=== PATIENT | male | born 1950 | race Caucasian/White ===

== ENCOUNTER 2024-07-01 13:12 | Inpatient (IN) ==
[2024-07-01] MEDS: SODIUM CHLORIDE 0.9% 1,000 ML IV ONE ×2 (13:44→14:28)
--- NOTE | 2024-07-01 14:08 | XRay Report ---
XR chest 1V portable CLINICAL HISTORY: weakness COMPARISON STUDY: Chest radiograph June 22, 2024. FINDINGS: Lung volumes are normal. Lungs are clear. There is no pneumothorax or pleural effusion. Car diac size is normal. Mediastinal contours are normal. There is no evidence for pulmonary edema. IMPRESSION: No acute cardiopulmonary findings. ACT 112: Negative or not required by law. Electronically signed by: Donald Choi M.D. 07/01/2024 2:07 PM
[2024-07-01 14:10] LABS: Hematocrit (blood only) 19.8 % (42.0-52.0); Hemoglobin 7.1 g/dl (14.0-18.0); Mean Corpuscular Hemoglobin 42.3 pg (25.0-34.0); Mean Corpuscular Hgb Conc 35.9 g/dL (32.0-36.0); Mean Corpuscular Volume 117.9 fL (80.0-100.0); Mean Platelet Volume 11.9 fL (9.4-12.4); Nucleated RBC # (auto) 0.02 K/uL (0.00-0.12); Nucleated RBC % (auto) 0.5 %; Platelet Count 106 K/uL (130-400); RDW Coefficient of Variation 14.9 % (11.5-14.5); RDW Standard Deviation 59.1 fL (36.4-46.3); Red Blood Count 1.68 M/uL (4.70-6.10); White Blood Count 3.69 K/ul (4.8-10.8)
[2024-07-01 14:19] LABS: Albumin Globulin Ratio 2.2 (0.9-2); Albumin Level 4.8 gm/dl (3.4-5.0); BUN Creatinine Ratio 31.3 (10-20); Bilirubin,Total 3.8 mg/dl (0.2-1.0); Calcium 9.9 mg/dl (8.6-10.3); Creatinine Clr Calc Pharmacy 54.5 ml/min; Globulin 2.2 gm/dl (2.5-4.0); Magnesium 2.2 mg/dl (1.7-2.4); Potassium 3.6 mmol/L (3.5-5.1)
[2024-07-01 14:25] LABS: Troponin I High Sensitivity 6.3 pg/ml (0-20)
[2024-07-01 14:28] LABS: Procalcitonin 0.09 ng/ml (0-0.5)
[2024-07-01] MEDS: SODIUM CHLORIDE 0.9% 500 ML IV ONE (14:28)
[2024-07-01 14:36] LABS: Hypersegmented Neutrophils 1+; Immature Granulocytes # (auto) 0.02 K/uL (0.01-0.20); Immature Granulocytes % (auto) 0.5 %; Lymphocytes # (auto) 1.18 K/uL (1.20-3.40); Macrocytosis Present; Monocytes # (auto) 0.12 K/uL (0.11-0.59); Monocytes % (auto) 3.3 %; Neutrophils # (auto) 2.37 K/uL (1.40-6.50); Neutrophils % (auto) 64.2 %; Ovalocytes 1+; Polychromasia 1+; Tear Drop Cells 1+
[2024-07-01] MEDS ORDERED: CEFEPIME 2,000 MG/20 ML VIAL IV STA (14:36)
[2024-07-01] MEDS ORDERED: SODIUM CHLORIDE 0.9% 250 ML IV PRN (14:36)
[2024-07-01 14:53] LABS: Adenovirus PCR Not Detected (NotDetected); Bordetella parapertussis PCR Not Detected (NotDetected); Bordetella pertussis PCR Not Detected (NotDetected); Chlamydia pneumoniae PCR Not Detected (NotDetected); Coronavirus 229E PCR Not Detected (NotDetected); Coronavirus CoV-2 (COVID19)PCR Not Detected (NotDetected); Coronavirus HKU1 PCR Not Detected (NotDetected); Coronavirus NL63 PCR Not Detected (NotDetected); Coronavirus OC43PCR Not Detected (NotDetected); Human Metapneumovirus PCR Not Detected (NotDetected); Influenza A PCR Not Detected (NotDetected); Influenza B PCR Not Detected (NotDetected); Mycoplasma pneumoniae PCR Not Detected (NotDetected); Parainfluenza Virus 1 PCR Not Detected (NotDetected); Parainfluenza Virus 2 PCR Not Detected (NotDetected); Parainfluenza Virus 3 PCR Not Detected (NotDetected); Parainfluenza Virus 4 PCR Not Detected (NotDetected); Respiratory Syncytial VirusPCR Not Detected (NotDetected); Rhinovirus/Enterovirus PCR Not Detected (NotDetected)
[2024-07-01 14:53] LABS: Lyme Screen Rflx Confirmation Negative (Negative)
--- NOTE | 2024-07-01 18:23 | Emergency Department Note ---
History of Present Illness General Chief Complaint: Abnormal Labs/Diagnostic Testing Stated Complaint: ABN LABS/DOC REF Time Seen by Provider: 07/01/24 13:25 History of Present Illness Provider Complaint: + abnormal lab Returns today for: + called because of abnormal lab/test Description of abnormal result: Low hemoglobin Context: + called for abnormal lab result Associated symptoms: no fever, no chills, no chest pain, no shortness of breath, no rash or no nausea HPI narrative: Patient reports feeling very weak. He reports no melena or hematochezia. No nausea or vomiting. No hematemesis coffee-ground emesis or bilious vomiting. Home Medications Medication Instructions Recorded Confirmed Type finasteride 5 mg tablet 5 mg PO DAILY 07/01/24 07/01/24 History lisinopril 10 1 tab PO DAILY 07/01/24 07/01/24 History mg-hydrochlorothiazide 12.5 mg tablet simvastatin 20 mg tablet 20 mg PO DAILY 07/01/24 07/01/24 History Allergies Allergy/AdvReac Type Severity Reaction Status Date / Time No Known Allergies Unverified 07/01/24 15:03 Past Med/Surg History Problem List (Updated 07/01/24 @ 18:33 by Harpreet Trevizo MD) Sepsis (Acute) Pancytopenia (Acute) Anemia (Acute) Medical History No pertinent family history HLD (hyperlipidemia) HTN (hypertension) Weakness Surgical History No pertinent past surgical history Social History Smoking Status: Never smoker Feels Safe at Home: Yes Physical Exam 2 Vital Signs: Vital Signs - 24 hr 07/01/24 13:18 07/01/24 13:30 07/01/24 13:45 Temperature Temperature Source Pulse Rate 137 H 84 84 Pulse Rate [Apical ] Pulse Rate from Sp O2 Sensor Respiratory Rate 18 26 H Respiratory Effort / Characteristics Non-Labored Sponta neous Respiratory Depth Normal Respiratory Patter n Blood Pressure 71/46 L Blood Pressure [Le ft Arm] Blood Pressure Kitty n 54 Blood Pressure Kitty n [Left Arm] Pulse Oximetry 97 Oxygen Delivery Me thod Room Air Sepsis Recent Feve r Within 48 Hours No Sepsis New/Unexpla ined Change in Men claudia Status No Sepsis Action Take n by Nursing No Action Required 07/01/24 13:45 07/01/24 13:51 07/01/24 13:52 Temperature Temperature Source Pulse Rate 92 H Pulse Rate [Apical ] 85 Pulse Rate from Sp O2 Sensor Respiratory Rate 19 20 Respiratory Effort / Characteristics Non-Labored Sponta neous Respiratory Depth Normal Respiratory Patter n Regular Blood Pressure 86/57 L Blood Pressure [Le ft Arm] 86/57 L Blood Pressure Kitty n 68 Blood Pressure Kitty n [Left Arm] 66 Pulse Oximetry 96 Oxygen Delivery Me thod Room Air Room Air Sepsis Recent Feve r Within 48 Hours Sepsis New/Unexpla ined Change in Men claudia Status Sepsis Action Take n by Nursing 07/01/24 14:06 07/01/24 14:15 07/01/24 14:15 Temperature Temperature Source Pulse Rate 83 86 Pulse Rate [Apical ] Pulse Rate from Sp O2 Sensor Respiratory Rate 21 18 Respiratory Effort / Characteristics Respiratory Depth Respiratory Patter n Blood Pressure 93/60 L Blood Pressure [Le ft Arm] Blood Pressure Kitty n 71 Blood Pressure Kitty n [Left Arm] Pulse Oximetry 96 Oxygen Delivery Me thod Sepsis Recent Feve r Within 48 Hours Sepsis New/Unexpla ined Change in Men claudia Status Sepsis Action Take n by Nursing 07/01/24 14:15 07/01/24 14:30 07/01/24 14:30 Temperature Temperature Source Pulse Rate 79 Pulse Rate [Apical ] Pulse Rate from Sp O2 Sensor Respiratory Rate 20 Respiratory Effort / Characteristics Respiratory Depth Respiratory Patter n Blood Pressure 94/61 L Blood Pressure [Le ft Arm] Blood Pressure Kitty n 67 Blood Pressure Kitty n [Left Arm] Pulse Oximetry 99 99 Oxygen Delivery Me thod Sepsis Recent Feve r Within 48 Hours Sepsis New/Unexpla ined Change in Men claudia Status Sepsis Action Take n by Nursing 07/01/24 15:00 07/01/24 15:00 07/01/24 15:09 Temperature Temperature Source Pulse Rate 75 76 Pulse Rate [Apical ] Pulse Rate from Sp O2 Sensor 78 76 Respiratory Rate 20 18 Respiratory Effort / Characteristics Respiratory Depth Respiratory Patter n Blood Pressure 118/68 Blood Pressure [Le ft Arm] Blood Pressure Kitty n 90 Blood Pressure Kitty n [Left Arm] Pulse Oximetry 100 100 Oxygen Delivery Me thod Sepsis Recent Feve r Within 48 Hours Sepsis New/Unexpla ined Change in Men claudia Status Sepsis Action Take n by Nursing 07/01/24 15:13 07/01/24 15:15 07/01/24 15:18 Temperature Temperature Source Pulse Rate 81 Pulse Rate [Apical ] 79 Pulse Rate from Sp O2 Sensor Respiratory Rate 19 16 Respiratory Effort / Characteristics Non-Labored Sponta neous Respiratory Depth Normal Respiratory Patter n Regular Blood Pressure 106/66 Blood Pressure [Le ft Arm] 106/66 Blood Pressure Kitty n 81 Blood Pressure Kitty n [Left Arm] 79 Pulse Oximetry 98 Oxygen Delivery Me thod Room Air Sepsis Recent Feve r Within 48 Hours Sepsis New/Unexpla ined Change in Men claudia Status Sepsis Action Take n by Nursing 07/01/24 15:30 07/01/24 15:30 07/01/24 15:42 Temperature Temperature Source Pulse Rate 78 77 Pulse Rate [Apical ] Pulse Rate from Sp O2 Sensor 75 76 Respiratory Rate 22 16 Respiratory Effort / Characteristics Respiratory Depth Respiratory Patter n Blood Pressure 114/73 Blood Pressure [Le ft Arm] Blood Pressure Kitty n 84 Blood Pressure Kitty n [Left Arm] Pulse Oximetry 98 100 Oxygen Delivery Me thod Sepsis Recent Feve r Within 48 Hours Sepsis New/Unexpla ined Change in Men claudia Status Sepsis Action Take n by Nursing 07/01/24 15:44 07/01/24 15:46 07/01/24 15:57 Temperature 36.7 C Temperature Source Oral Pulse Rate 77 79 Pulse Rate [Apical ] Pulse Rate from Sp O2 Sensor 78 Respiratory Rate 18 13 Respiratory Effort / Characteristics Respiratory Depth Respiratory Patter n Blood Pressure 114/73 110/73 Blood Pressure [Le ft Arm] Blood Pressure Kitty n 86 79 Blood Pressure Kitty n [Left Arm] Pulse Oximetry 99 98 Oxygen Delivery Me thod Sepsis Recent Feve r Within 48 Hours Sepsis New/Unexpla ined Change in Men claudia Status Sepsis Action Take n by Nursing 07/01/24 16:00 07/01/24 16:03 07/01/24 16:05 Temperature 36.8 C Temperature Source Oral Pulse Rate 77 75 Pulse Rate [Apical ] Pulse Rate from Sp O2 Sensor Respiratory Rate 15 19 Respiratory Effort / Characteristics Respiratory Depth Respiratory Patter n Blood Pressure 104/73 104/73 Blood Pressure [Le ft Arm] Blood Pressure Kitty n 83 83 Blood Pressure Kitty n [Left Arm] Pulse Oximetry 99 Oxygen Delivery Me thod Sepsis Recent Feve r Within 48 Hours Sepsis New/Unexpla ined Change in Men claudia Status Sepsis Action Take n by Nursing 07/01/24 16:15 07/01/24 16:15 07/01/24 16:20 Temperature 36.9 C Temperature Source Oral Pulse Rate 83 82 Pulse Rate [Apical ] Pulse Rate from Sp O2 Sensor 80 Respiratory Rate 14 19 Respiratory Effort / Characteristics Respiratory Depth Respiratory Patter n Blood Pressure 119/65 119/65 Blood Pressure [Le ft Arm] Blood Pressure Kitty n 71 83 Blood Pressure Kitty n [Left Arm] Pulse Oximetry 98 99 Oxygen Delivery Me thod Sepsis Recent Feve r Within 48 Hours Sepsis New/Unexpla ined Change in Men claudia Status Sepsis Action Take n by Nursing 07/01/24 16:30 07/01/24 16:30 07/01/24 16:33 Temperature Temperature Source Pulse Rate 86 Pulse Rate [Apical ] Pulse Rate from Sp O2 Sensor 84 Respiratory Rate 18 Respiratory Effort / Characteristics Respiratory Depth Respiratory Patter n Blood Pressure 119/72 119/72 Blood Pressure [Le ft Arm] Blood Pressure Kitty n 81 81 Blood Pressure Kitty n [Left Arm] Pulse Oximetry 99 Oxygen Delivery Me thod Sepsis Recent Feve r Within 48 Hours Sepsis New/Unexpla ined Change in Men claudia Status Sepsis Action Take n by Nursing 07/01/24 16:45 07/01/24 16:45 07/01/24 16:50 Temperature 36.7 C Temperature Source Oral Pulse Rate 85 86 Pulse Rate [Apical ] Pulse Rate from Sp O2 Sensor 85 Respiratory Rate 12 19 Respiratory Effort / Characteristics Respiratory Depth Respiratory Patter n Blood Pressure 113/76 113/76 Blood Pressure [Le ft Arm] Blood Pressure Kitty n 86 88 Blood Pressure Kitty n [Left Arm] Pulse Oximetry 99 99 Oxygen Delivery Me thod Sepsis Recent Feve r Within 48 Hours Sepsis New/Unexpla ined Change in Men claudia Status Sepsis Action Take n by Nursing 07/01/24 17:00 07/01/24 17:50 Temperature 36.5 C Temperature Source Oral Pulse Rate 88 Pulse Rate [Apical ] 81 Pulse Rate from Sp O2 Sensor Respiratory Rate 20 17 Respiratory Effort / Characteristics Non-Labored Sponta neous Respiratory Depth Normal Respiratory Patter n Regular Blood Pressure 121/75 Blood Pressure [Le ft Arm] 115/74 Blood Pressure Kitty n 90 Blood Pressure Kitty n [Left Arm] 87 Pulse Oximetry 99 98 Oxygen Delivery Me thod Room Air Sepsis Recent Feve r Within 48 Hours Sepsis New/Unexpla ined Change in Men claudia Status Sepsis Action Take n by Nursing Physical Exam: Physical Exam HENT: Exam performed. - Head: Normocephalic and atraumatic. - Right Ear: External ear normal. No mastoid erythema - Left Ear: External ear normal. No mastoid erythema - Mouth/Throat: The oropharynx is clear. Dry mucous membranes. No trismus in the jaw. No dental abscesses or uvula swelling. No oropharyngeal exudate or tonsillar abscesses. EYES: Conjunctivae and EOM are normal. Pupils are equal, round, and reactive to light. Right eye exhibits no discharge. Left eye exhibits no discharge. No scleral icterus. NECK: Normal range of motion. Neck supple. No JVD present. CV: Tachycardic rate, regular rhythm, normal heart sounds and intact distal pulses. There is no peripheral edema. Palpable radial pulses bue. PULM/CHEST: Effort normal and breath sounds normal. No respiratory distress. No stridor. He has no wheezes. He has no rales. - Chest Wall: He exhibits no tenderness. ABD: The abdomen is soft. There is no tenderness. There is no rebound, no guarding Rectal: Hemoccult negative MUSC/SKEL: Normal range of motion. There is no peripheral edema, tenderness or deformity. NEURO: He is alert and oriented to person, place, and time. He has normal strength. No cranial nerve deficit or sensory deficit. Coordination and gait normal. GCS eye subscore is 4. GCS verbal subscore is 5. GCS motor subscore is 6. Cerebellar tests wnl. SKIN: Skin is warm and dry. He is not diaphoretic. Pale. PSYCH: He has a normal mood and affect. Behavior is normal. Judgment and thought content normal. Course Course 1325: The patient was evaluated in room B4. A complete history and physical exam was performed Cardiac monitoring: An order was placed for continuous cardiac monitoring. The monitor shows a rate of 110 with sinus rhythm interpreted by la Sepsis protocols initiated. 1415: Lactic acid 3.8. 30 cc/kg normal saline bolus ordered for the patient. 1445: Vital signs improving with normal saline bolus. Hemoglobin 7.1. Patient be transfused 1 unit packed red blood cells. Broad-spectrum antibiotics cefepime ordered for the patient empirically. Patient be admitted to the on any hospitalist team. 1600: Vital signs stable. Repeat lactic acid status post 30 cc/kg normal saline bolus is 1.1. Administered Medications Discontinued Medications Sodium Chloride (Nss) 1,000 mls @ 999 mls/hr IV .Q1H1M ONE Stop: 07/01/24 14:33 Last Infusion: 07/01/24 15:54 Dose: Infused Documented By: [facility] Admin: 07/01/24 13:44 Dose: 999 mls/hr Documented By: [facility] Sodium Chloride (Nss) 500 mls @ 999 mls/hr IV .Q31M ONE Stop: 07/01/24 14:42 Last Infusion: 07/01/24 15:04 Dose: Infused Documented By: [facility] Admin: 07/01/24 14:28 Dose: 999 mls/hr Documented By: [facility] Sodium Chloride (Nss) 1,000 mls @ 999 mls/hr IV .Q1H1M ONE Stop: 07/01/24 15:12 Last Infusion: 07/01/24 15:54 Dose: Infused Documented By: [facility] Admin: 07/01/24 14:28 Dose: 999 mls/hr Documented By: [facility] Medical Decision Making Medical Records Attestation: I reviewed the patient's medical records. External medical records reviewed. Patient had outpatient blood work done 2 days ago on June 29, 2024 which showed a hemoglobin of 7.4 white blood cell count of 3.4 and platelet count of 109. Laboratory Data Attestation: I reviewed the patient's lab results. 07/01/24 13:31 07/01/24 13:31 Lab Results 07/01/24 07/01/24 07/01/24 Range/Units 13:30 13:31 13:57 WBC 3.69 L (4.8-10.8) K/ul RBC 1.68 L (4.70-6.10) M/uL Hgb 7.1 L (14.0-18.0) g/dl Hct 19.8 L* (42.0-52.0) % MCV 117.9 H (80.0-100.0) fL MCH 42.3 H (25.0-34.0) pg MCHC 35.9 (32.0-36.0) g/dL RDW Std Deviation 59.1 H (36.4-46.3) fL RDW Coeff of Valerie 14.9 H (11.5-14.5) % Plt Count 106 L (130-400) K/uL MPV 11.9 (9.4-12.4) fL Immature Gran % (Auto) 0.5 % Neut % (Auto) 64.2 % Lymph % (Auto) 32.0 % Callaway % (Auto) 3.3 % Eos % (Auto) 0.0 % Baso % (Auto) 0.0 % Reticulocyte % (Auto) 0.90 (0.50-2.00) % Neut # (Auto) 2.37 (1.40-6.50) K/uL Lymph # (Auto) 1.18 L (1.20-3.40) K/uL Callaway # (Auto) 0.12 (0.11-0.59) K/uL Eos # (Auto) 0.00 (0.00-0.50) K/uL Baso # (Auto) 0.00 (0.00-0.20) K/uL Reticulocyte # 0.020 (0.020-0.100) 10^6/uL Immature Gran # (Auto) 0.02 (0.01-0.20) K/uL Absolute Nucleated RBC 0.02 (0.00-0.12) K/uL Nucleated RBC % (auto) 0.5 % Hypersegmented Neuts 1+ Polychromasia 1+ Macrocytosis Present Tear Drop Cells 1+ Ovalocytes 1+ Sodium 137 (136-145) mmol/L Potassium 3.6 (3.5-5.1) mmol/L Chloride 103 (98-107) mmol/L Carbon Dioxide 24 (21-32) mmol/L Anion Gap 10 (3-11) BUN 40 H (6-23) mg/dl Creatinine 1.28 (0.6-1.4) mg/dl Est Cr Clr Drug Dosing 54.5 ml/min eGFR 59.10 BUN/Creatinine Ratio 31.3 H (10-20) Glucose 129 H (70-99(Fasting)) mg/dl Lactate 3.8 H* (0.4-2.0) mmol/L Calcium 9.9 (8.6-10.3) mg/dl Magnesium 2.2 (1.7-2.4) mg/dl Total Bilirubin 3.8 H (0.2-1.0) mg/dl AST 30 (13-39) U/L ALT 28 (7-52) U/L Alkaline Phosphatase 42 (34-104) U/L Troponin I High Sens 6.3 (0-20) pg/ml Total Protein 7.0 (6.0-8.3) gm/dl Albumin 4.8 (3.4-5.0) gm/dl Globulin 2.2 L (2.5-4.0) gm/dl Albumin/Globulin Ratio 2.2 H (0.9-2) Procalcitonin 0.09 (0-0.5) ng/ml Adenovirus (PCR) Not Detected (NotDetected) B. pertussis DNA (PCR) Not Detected (NotDetected) B.parapertussis DNA PCR Not Detected (NotDetected) Lyme Disease Screen Negative (Negative) C. pneumoniae DNA (PCR) Not Detected (NotDetected) Coronavirus OC43 (PCR) Not Detected (NotDetected) Coronavirus HKU1 (PCR) Not Detected (NotDetected) Coronavirus 229E (PCR) Not Detected (NotDetected) SARS-CoV-2 (PCR) Not Detected (NotDetected) Coronavirus NL63 (PCR) Not Detected (NotDetected) Human Metapneumovir PCR Not Detected (NotDetected) Influenza Type A (PCR) Not Detected (NotDetected) Influenza Type B (PCR) Not Detected (NotDetected) M. pneumoniae (PCR) Not Detected (NotDetected) Parainfluenza 1 (PCR) Not Detected (NotDetected) Parainfluenza 2 (PCR) Not Detected (NotDetected) Parainfluenza 3 (PCR) Not Detected (NotDetected) Parainfluenza 4 (PCR) Not Detected (NotDetected) RSV (PCR) Not Detected (NotDetected) Entero/Rhino (PCR) Not Detected (NotDetected) Blood Type AB Positive Blood Type Recheck Antibody Screen NEGATIVE Crossmatch See Detail 07/01/24 07/01/24 Range/Units 14:49 15:33 WBC (4.8-10.8) K/ul RBC (4.70-6.10) M/uL Hgb (14.0-18.0) g/dl Hct (42.0-52.0) % MCV (80.0-100.0) fL MCH (25.0-34.0) pg MCHC (32.0-36.0) g/dL RDW Std Deviation (36.4-46.3) fL RDW Coeff of Valerie (11.5-14.5) % Plt Count (130-400) K/uL MPV (9.4-12.4) fL Immature Gran % (Auto) % Neut % (Auto) % Lymph % (Auto) % Callaway % (Auto) % Eos % (Auto) % Baso % (Auto) % Reticulocyte % (Auto) (0.50-2.00) % Neut # (Auto) (1.40-6.50) K/uL Lymph # (Auto) (1.20-3.40) K/uL Callaway # (Auto) (0.11-0.59) K/uL Eos # (Auto) (0.00-0.50) K/uL Baso # (Auto) (0.00-0.20) K/uL Reticulocyte # (0.020-0.100) 10^6/uL Immature Gran # (Auto) (0.01-0.20) K/uL Absolute Nucleated RBC (0.00-0.12) K/uL Nucleated RBC % (auto) % Hypersegmented Neuts Polychromasia Macrocytosis Tear Drop Cells Ovalocytes Sodium (136-145) mmol/L Potassium (3.5-5.1) mmol/L Chloride (98-107) mmol/L Carbon Dioxide (21-32) mmol/L Anion Gap (3-11) BUN (6-23) mg/dl Creatinine (0.6-1.4) mg/dl Est Cr Clr Drug Dosing ml/min eGFR BUN/Creatinine Ratio (10-20) Glucose (70-99(Fasting)) mg/dl Lactate 1.1 (0.4-2.0) mmol/L Calcium (8.6-10.3) mg/dl Magnesium (1.7-2.4) mg/dl Total Bilirubin (0.2-1.0) mg/dl AST (13-39) U/L ALT (7-52) U/L Alkaline Phosphatase (34-104) U/L Troponin I High Sens (0-20) pg/ml Total Protein (6.0-8.3) gm/dl Albumin (3.4-5.0) gm/dl Globulin (2.5-4.0) gm/dl Albumin/Globulin Ratio (0.9-2) Procalcitonin (0-0.5) ng/ml Adenovirus (PCR) (NotDetected) B. pertussis DNA (PCR) (NotDetected) B.parapertussis DNA PCR (NotDetected) Lyme Disease Screen (Negative) C. pneumoniae DNA (PCR) (NotDetected) Coronavirus OC43 (PCR) (NotDetected) Coronavirus HKU1 (PCR) (NotDetected) Coronavirus 229E (PCR) (NotDetected) SARS-CoV-2 (PCR) (NotDetected) Coronavirus NL63 (PCR) (NotDetected) Human Metapneumovir PCR (NotDetected) Influenza Type A (PCR) (NotDetected) Influenza Type B (PCR) (NotDetected) M. pneumoniae (PCR) (NotDetected) Parainfluenza 1 (PCR) (NotDetected) Parainfluenza 2 (PCR) (NotDetected) Parainfluenza 3 (PCR) (NotDetected) Parainfluenza 4 (PCR) (NotDetected) RSV (PCR) (NotDetected) Entero/Rhino (PCR) (NotDetected) Blood Type Blood Type Recheck AB Positive Antibody Screen Crossmatch Imaging Data Attestation: I personally reviewed and interpreted this imaging study as follows: My Impression: Chest x-ray negative. Airway clear. No pneumothorax. No consolidation. No cardiomegaly or cephalization.. No free air under the diaphragm. No fractures of the skeletal structures. Radiologist's Impression: Chest X-Ray 07/01/24 13:18 XR chest 1V portable CLINICAL HISTORY: weakness COMPARISON STUDY: Chest radiograph June 22, 2024. FINDINGS: Lung volumes are normal. Lungs are clear. There is no pneumothorax or pleural effusion. Cardiac size is normal. Mediastinal contours are normal. There is no evidence for pulmonary edema. IMPRESSION: No acute cardiopulmonary findings. ACT 112: Negative or not required by law. Electronically signed by: Donald Choi M.D. 07/01/2024 2:07 PM ECG Data Attestation: I personally reviewed and interpreted this ECG as follows: Rate (beats per minute): 83 Rhythm: normal sinus Findings: no ST depression, no ST elevation or no prolonged QT MDM Narrative 1325: The patient was evaluated in room B4. A complete history and physical exam was performed Cardiac monitoring: An order was placed for continuous cardiac monitoring. The monitor shows a rate of 110 with sinus rhythm interpreted by la Sepsis protocols initiated. 1415: Lactic acid 3.8. 30 cc/kg normal saline bolus ordered for the patient. 1445: Vital signs improving with normal saline bolus. Hemoglobin 7.1. Patient be transfused 1 unit packed red blood cells. Broad-spectrum antibiotics cefepime ordered for the patient empirically. Patient be admitted to the on any hospitalist team. 1600: Vital signs stable. Repeat lactic acid status post 30 cc/kg normal saline bolus is 1.1. Impression & Plan Anemia, Sepsis Critical Care Time Critical Care Time: Yes Total Critical Care Time: 63 I have personally spent greater than 63 minutes of critical care time in the direct management of this patient. This includes bedside care, interpretation of diagnostic studies, and testing, discussion with consultants, patient, and family members, and other required patient management activities. This 63 minutes is in excess of all separately billable procedures. Discharge Plan Visit Data Chief Complaint: Abnormal Labs/Diagnostic Testing Stated Complaint: ABN LABS/DOC REF ED Provider: Harpreet Trevizo Discharge Problem: Anemia, Sepsis Patient Disposition: Admitted As Inpatient Forms Stand Alone Forms: My [facility] Prescriptions Prescriptions: No Action simvastatin 20 mg tablet 20 mg PO DAILY lisinopril-hydrochlorothiazide 10-12.5 mg tablet 1 tab PO DAILY finasteride 5 mg tablet 5 mg PO DAILY Referrals Referrals: Mesfin Howard [Primary Care Provider] - Discharge Problem: Anemia Qualifiers: Anemia type: unspecified type Qualified Code(s): D64.9 - Anemia, unspecified Sepsis Qualifiers: Sepsis type: sepsis due to unspecified organism Sepsis acute organ dysfunction status: unspecified Qualified Code(s): A41.9 - Sepsis, unspecified organism
--- NOTE | 2024-07-01 18:40 | History & Physical Report ---
Date of Service July 01, 2024 Assessment & Plan (1) Pancytopenia: (2) Macrocytic anemia: (3) Leukopenia: (4) SIRS (systemic inflammatory response syndrome): (5) Hypotension: Plan Nakul Foster is a 74yo M w PMH notable for HLD and HTN who presented with provider recommendation due to abnormal labs and was admitted due to pancytopenia w severe anemia. Macrocytic Anemia - Noticed sx approx 1m ago Worsening fatigue, difficult to walk a few feet recently; lives alone, reports no falls - Hgb on 06/22 was 8.2; was scheduled to see heme next week - Hgb on arrival was 7.1 Retic inappropriately normal w # 0.02 and % 0.90 Smear found hypersegmented neutrophils, polychromasia, ovalomacrocytes, tear drop cells Hgb improved to 8.1 after 1 unit pRBC Has never needed blood transfusion before - Tbili 2.6 06/22 --> 3.8 today; LDH 959, other liver enzymes wnl LFTs ordered to further eval hyperbilirubinemia/potential hemolysis - Transfusion threshold overnight < 7 - CBC w morning labs - Folate & vitamin B12 levels Pt reports poor diet, low appetite, mostly fruit - Follow up on direct hesham and periph smear - Hematology consulted, appreciate reccs Leukopenia - WBC 3.69; ANC 2.37 Improved from 2.99 & 2.07 respectively on 06/22 Changes proportional to changes in Plt & Hgb - Afebrile, no sx of infection, continue to monitor SIRS - Met SIRS criteria on arrival w HR > 90, RR > 20, WBC < 4 - Now stabilized after 2.5L nss - Lactate 3.8 on arrival -->1.1 after IVF - No s/s of infection - UA only notable for trace ketones; no ucx ordered - CXR showed no acute cardiopulmonary findings - Blood cultures collected; start abx if appropriate Hypotension - BP 71/46 on arrival - Improved after saline bolus & transfusion to 110s/60s - Monitor vitals; IVF as needed Diet: regular DVT ppx: SCDs Dispo: PCU/tele History of Present Illness Chief Complaint: Abnormal labs, anemia Primary Care Provider: Mesfin Howard Nakul Foster is a 74yo M w PMH notable for HLD and HTN who presents with provider recommendation due to abnormal labs. He reports that for the past ~1 month he has been experiencing worsening fatigue. More recently, he is having trouble walking from room to room in his house due to becoming so easily exhausted. He lives alone, but reports he has not needed assistance further than a cane, which he has never needed until ~2wk ago, and no falls. He went to his PCP last week, who found low Hgb and scheduled a heme appt. Today his PCP found a Hgb of 7.1 and advised pt to go to ED. He was given 2.5L IV fluids and 1 unit of blood. He now reports feeling much better, is resting and communicating comfortably in his bed. Denies fevers, chills, unexpected weight loss, CP, SOB, cough, abd pain, n/v/c/d, change in bowel habits or stool color, dysuria, bruising or bleeding, and any numbness or tinging. He does report a poor diet: chronic low intake due to low appetite, eats mostly just fruit; change this week to no appetite at all. He does not drink, has never smoked. He denies any fam hx of anemia or malignancies. He has never experienced anything similar, been told he is anemia, or required blood transfusion. He takes his medications regularly as prescribed, and takes no other supplements. Allergies Allergy/AdvReac Type Severity Reaction Status Date / Time No Known Allergies Unverified 07/01/24 15:03 Home Medications Medication Instructions Recorded Confirmed Type finasteride 5 mg tablet 5 mg PO DAILY 07/01/24 07/04/24 History lisinopril 10 1 tab PO DAILY 07/01/24 07/01/24 History mg-hydrochlorothiazide 12.5 mg tablet simvastatin 20 mg tablet 20 mg PO DAILY 07/01/24 07/04/24 History cyanocobalamin (vitamin B-12) 1,000 mcg IM DAILY 4 days #4 mL 07/04/24 07/04/24 Rx 1,000 mcg/mL injection solution Past Med/Surg History Problem List (Updated 07/02/24 @ 14:05 by Katie Hong DO) Unwitnessed fall Thrombocytopenia B12 deficiency Thrombocytopenia Hypotension Leukopenia SIRS (systemic inflammatory response syndrome) Macrocytic anemia Sepsis (Acute) Pancytopenia (Acute) Anemia (Acute) Medical History No pertinent family history HLD (hyperlipidemia) HTN (hypertension) Weakness Surgical History No pertinent past surgical history Social History Smoking Status: Never smoker Hx Alcohol Use: No Hx Substance Use: No Preferred Language: Bahraini Communication Ability: Effective 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: No Beliefs That Will Affect Care: None Current Living Situation: Alone Feels Safe at Home: Yes Assistive Devices: Cane and Glasses Review of Systems 2 Constitutional: + fatigue; no fever, no chills, no sweat s and no weight loss Eyes: no problem reported Ear, Nose, Mouth, Throat: no problem reported Respiratory: no cough, no chest congestion and no dyspnea Cardiovascular: no chest pain, no palpitations, no syncope and no edema Gastrointestinal: no abdominal pain, no nausea, no vomiting, no dysphagia, no constipation, no diarrhea/loose stools and no melena Genitourinary: no dysuria or no difficulty urinating Musculoskeletal: no joint pain, no swelling, no stiffness and no myalgia Neurologic: no falls, no paresthesia, no abnormal movements, no dizziness, no syncope and no headache(s) Psychiatric: + change in appetite Hematologic / Lymphatic: no unexplained weight loss Physical Exam 2 Constitutional: cooperative and comfortable; no acute distress and not ill appearing Eyes: PERRL, conjunctivae normal, anicteric sclerae Respiratory: normal respiratory effort, lungs clear to auscultation Cardiovascular: RRR, no murmur, no edema Gastrointestinal (Abdomen): normal bowel sounds, soft, nontender, no hepatosplenomegaly Musculoskeletal: no cyanosis or clubbing, extremities motor strength 5/5 Neurologic: PERRL, EOMI, accommodation nl, no face palsy, no dysarthria M otor/Sensory: no tremor, no pronator drift and no sensory deficit Psychiatric: A+Ox3, euthymic affect Results & Data Results & Data Vital Signs (Past 12 Hours) Vital Signs Temp Pulse Pulse Resp BP BP Pulse Ox 07/01/24 18:32 36.8 C 80 19 95/65 L 99 07/01/24 17:50 36.5 C 88 17 121/75 98 07/01/24 17:00 81 20 115/74 99 07/01/24 16:50 36.7 C 86 19 113/76 99 07/01/24 16:45 85 12 99 07/01/24 16:45 113/76 07/01/24 16:33 86 18 99 07/01/24 16:30 119/72 07/01/24 16:30 119/72 07/01/24 16:20 36.9 C 82 19 119/65 99 07/01/24 16:15 83 14 98 07/01/24 16:15 119/65 07/01/24 16:05 36.8 C 75 19 104/73 99 07/01/24 16:03 77 15 07/01/24 16:00 104/73 07/01/24 15:57 79 13 98 07/01/24 15:46 110/73 07/01/24 15:44 36.7 C 77 18 114/73 99 07/01/24 15:42 77 16 100 07/01/24 15:30 78 22 98 07/01/24 15:30 114/73 07/01/24 15:18 81 16 07/01/24 15:15 106/66 07/01/24 15:13 79 19 106/66 98 07/01/24 15:09 76 18 100 07/01/24 15:00 75 20 100 07/01/24 15:00 118/68 07/01/24 14:30 79 20 99 07/01/24 14:30 94/61 L 07/01/24 14:15 99 07/01/24 14:15 93/60 L 07/01/24 14:15 86 18 96 07/01/24 14:06 83 21 07/01/24 13:52 92 H 20 07/01/24 13:51 85 19 86/57 L 96 07/01/24 13:45 86/57 L 07/01/24 13:45 84 26 H 07/01/24 13:30 84 07/01/24 13:18 137 H 18 71/46 L 97 Laboratory Results 07/01/24 13:31 07/01/24 13:31 Diagnostic Findings Chest X-Ray 07/01/24 13:18 XR chest 1V portable CLINICAL HISTORY: weakness COMPARISON STUDY: Chest radiograph June 22, 2024. FINDINGS: Lung volumes are normal. Lungs are clear. There is no pneumothorax or pleural effusion. Cardiac size is normal. Mediastinal contours are normal. There is no evidence for pulmonary edema. IMPRESSION: No acute cardiopulmonary findings. Electronically signed by: Donald Choi M.D. 07/01/2024 2:07 PM Supervising Physician Co-Signing Physician Notes I personally saw and examined the patient. I independently reviewed the labs, EKG, imaging, problem list, medication list, past medical history and family history. I verified all timmons points and agree with resident physician Dr Penny Mo MD with the following exceptions and/or additions: 74 year old male presents to the ER with presyncope and anemia on outpatient labs. O/E HS RRR, no mumurs, Chest CTAB, Abdo SNT A/P Macrocytic anemia with pancytopenia - elevated bilirubin and LDH concerning for hemolysis; will therefore consult hematology, added peripheral smear and hesham test, macrocytosis concerning for B12 or folate deficiency, labs added for AM Presyncope - stop anti-hypertensives Resident Activity Tracking Resident Involvement: Resident Care Provided Care Provided: Adult Hospital Medicine
[2024-07-01 18:50] LABS: Appearance Urine Clear (Clear); Bilirubin Urine Negative (Negative); Blood Urine Negative (Negative); Color Urine Yellow; Glucose Urine UA Negative (Negative); Ketones Urine Trace (Negative); Leukocyte Esterase Urine Negative (Negative); Nitrite Urine Negative (Negative); Protein Urine Negative (Negative); Specific Gravity Urine 1.015 (1.000-1.030); Urobilinogen Urine Negative (Negative)
[2024-07-01 19:34] LABS: Hematocrit (blood only) 23.6 % (42.0-52.0); Hemoglobin 8.1 g/dl (14.0-18.0)
[2024-07-01] MEDS ORDERED: POLYETHYLENE (MIRALAX) 17 GM PACK PO PRN (21:07)
[2024-07-01] MEDS ORDERED: ONDANSETRON INJ 2 MG/ML 2 ML VIAL IV PRN (21:07)
--- NOTE | 2024-07-02 06:46 | Communication Note ---
Date of Service: July 02, 2024 Notified by nursing at 0645 that pt fell and hit head. Was on his way back from bedside commode and tripped. Elevated pt at bedside- awake, alert. Remembers entire event. Denies LOC. Swelling left forehead with overlying laceration. No focal neurologic deficits. Notes left rib pain at rib 8/9 anteriorly- mildly tendered to touch without bruising. Denies pain anywhere else- no other injuries noted on exam, moving all extremities appropriately. Admitted for symptomatic anemia and received 1unit pRBC in ED. Not on any blood thinners. Will get repeat Hgb now and another q4h. Pressure dressing applied and bleeding controlled. Head CT now- after Head CT will need to further clean off/elevate wound. XR of ribs ordered.
[2024-07-02 06:49] LABS: Albumin Level 3.9 gm/dl (3.4-5.0); BUN Creatinine Ratio 32.6 (10-20); Bilirubin Direct 0.6 mg/dl (0-0.2); Bilirubin,Total 3.4 mg/dl (0.2-1.0); Calcium 8.6 mg/dl (8.6-10.3); Creatinine Clr Calc Pharmacy 78.5 ml/min; Potassium 3.5 mmol/L (3.5-5.1); Total Protein 5.6 gm/dl (6.0-8.3)
--- NOTE | 2024-07-02 06:58 | Hospitalist Progress Note ---
Date of Service July 02, 2024 Assessment & Plan (1) Pancytopenia: (2) Macrocytic anemia: (3) Leukopenia: (4) Thrombocytopenia: (5) Unwitnessed fall: (6) SIRS (systemic inflammatory response syndrome): (7) Hypotension: Plan Mr. Foster is a 74yo male with PMH notable for HLD and HTN who was admitted due to abnormal labs showing pancytopenia with severe anemia. Pt reports 1 month hx of progressive fatigue. He has been working with his PCP and recently had labs drawn. He was scheduled to see hem/onc next week. CBC and smear in ED showed pancytopenia with hypersegmented neutrophils, polychromasia, ovalmacrocytes and tear drop cells. Bilirubin had increased from 2.6 on 06/22 to 3.8. Liver enzymes were at normal level. Pt received 1 unit pRBC in ED and Hbg increased from 7.1 to 8.1. Macrocytic Anemia Hbg this morning before fall was 7.2, after fall is 7.1 at 0900 and 7.5 at 1100 - Transfusion threshold < 7 - Folate is at normal level, B12 is <50 - Direct hesham= Negative - Hematology consulted, recommend parental B12 daily Iron studies Testing for pernicious anemia, celiac If cytopenia does not improve, consider bone marrow biopsy - Fe= 193, ferritin= 828.4, IBC <55 - IgA= 176.6, TgIgA= pending - IM cyanocobalamin 1000mcg qd Leukopenia - WBC 3.23 down from 3.7 at admission - Neutrophils 1.34 down from 2.3 at admission - Afebrile, no sx of infection, continue to monitor Thrombocytopenia Platelet dropped from 106 at admission to 68 after fall this morning -will continue to monitor Unwitnessed fall CT head and CXR returned negative. Pt continues with reported pain at right side of ribs. He denies vision changes, dizziness or pain at his forehead. Contusion is a superficial skin tear and did require sutures. It was bandaged. - Acetaminophen PO 650mg q4h PRN for pain - Pt on fall precautions - Will continue to monitor for dizziness, confusion, neurological changes from current baseline - Consider PT/OT eval prior to discharge to assess safety SIRS Met SIRS criteria on arrival w HR > 90, RR > 20, WBC < 4 and stabilized after 2.5L nss. Lactate 3.8 on arrival -->1.1 after IVF. Cefepime 2g IV given in ED. - No s/s of infection via UA or CXR - Blood cultures collected pending results Hypotension BP 71/46 on arrival, improved after saline bolus & transfusion to 110s/60s. - 110's/60's for most of the morning. Elevated to 133/69 after fall - Monitor vitals; IVF as needed Ongoing Conditions: HLD: Continue Simvastatin 20mg PO qhs Diet: regular DVT ppx: SCDs Dispo: PCU/tele Admission and Anticipated Discharge Date Admission Date: July 01, 2024 Supervising Physician Co-Signing Physician Notes Attending Physician Supervision Note: I independently interviewed and examined the patient and verified the timmons history and physical, reviewed labs and image studies and agree with findings and care plan noted above. Pancytopenia in setting of severe B12 deficiency -replacing with IM 1000mcg B12. -Seen by hematology -Assess for alcohol -If negative for excess alcohol use - then consider testing for celiac ds and pernicious anemia. -If no response to B12 replacement - then consider bone marrow biopsy. 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 -Ordered transglutaminase, IF and parietal cell antibody. Unwitnessed Fall -superficial forehead abrasion with bleeding. Bleeding resolved with Compression dressing -Head CT and rib xray negative. Holding HCTZ/lisinopril and finasteride. SCD Subjective Pt is a 74 yo male who was admitted for anemia requiring blood transfusion. Early this morning, pt had an unwitnessed fall after rising from commode He sustaining contusion to his head and c/o Left sided rib pain. Pending head CT and CXR. He denies headache, changes in vision. He is alert and answering questions appropriately. Pt states changing positions, coughing and deep breathing increase his rib pain. Pt denies dizziness, chest pain, SOB, numbness/tingling, or abdominal pain Review of Systems Review of Systems: As per HPI Physical Exam Constitutional: cooperative; no acute distress and not ill appearing Pain moans in pain with adjusting body position in bed. Dry bandage and gauze covering right sided forehead laceration. Eyes: PERRL, conjunctivae normal, anicteric sclerae Respiratory: normal respiratory effort, lungs clear to auscultation Shallow breaths noted due to increase in rib pain with deep breathing Cardiovascular: RRR, no murmur, no edema Gastrointestinal (Abdomen): normal bowel sounds, soft, nontender, no hepatosplenomegaly Skin: Superficial skin tear at side side of forehead Neurologic: PERRL, EOMI, accommodation nl, no face palsy, no dysarthria Motor/Sensory: no tremor, no pronator drift and no sensory deficit Psychiatric: A+Ox3, euthymic affect Results & Data Results & Data Vital Signs (Past 12 Hours) Vital Signs Temp Pulse Pulse Resp BP Pulse Ox Pulse Ox 07/02/24 03:04 36.6 C 75 19 108/72 97 07/01/24 23:01 36.6 C 68 18 94/58 L 99 07/01/24 21:51 86 07/01/24 21:07 98 07/01/24 20:56 36.5 C 87 16 115/75 98 07/01/24 20:42 84 13 123/73 98 07/01/24 20:00 126/80 07/01/24 19:48 36.6 C 72 16 110/76 100 O2 Del Method O2 Del Method 07/02/24 03:04 Room Air 07/01/24 23:01 Room Air 07/01/24 21:51 07/01/24 21:07 Room Air 07/01/24 20:56 Room Air 07/01/24 20:42 Room Air 07/01/24 20:00 07/01/24 19:48 Room Air Resident Activity Tracking Resident Involvement: Resident Care Provided Care Provided: Adult Hospital Medicine
[2024-07-02 07:09] LABS: Folate (Folic Acid),Ser orPlas > 22.30 ng/ml (>5.38)
[2024-07-02 07:10] LABS: Vitamin B12 < 50 pg/ml (180-914)
[2024-07-02 07:16] LABS: Hematocrit (blood only) 19.8 % (42.0-52.0); Hemoglobin 7.2 g/dl (14.0-18.0); Mean Corpuscular Hemoglobin 40.2 pg (25.0-34.0); Mean Corpuscular Hgb Conc 36.4 g/dL (32.0-36.0); Mean Corpuscular Volume 110.6 fL (80.0-100.0); Mean Platelet Volume 11.5 fL (9.4-12.4); Platelet Count 68 K/uL (130-400); RDW Coefficient of Variation 21.2 % (11.5-14.5); RDW Standard Deviation 80.9 fL (36.4-46.3); Red Blood Count 1.79 M/uL (4.70-6.10); White Blood Count 3.23 K/ul (4.8-10.8)
[2024-07-02 07:17] LABS: Anisocytosis Present; Eosinophils # (auto) 0.03 K/uL (0.00-0.50); Eosinophils % (auto) 0.9 %; Hypersegmented Neutrophils 2+; Immature Granulocytes # (auto) 0.01 K/uL (0.01-0.20); Immature Granulocytes % (auto) 0.3 %; Lymphocytes # (auto) 1.74 K/uL (1.20-3.40); Lymphocytes % (auto) 53.9 %; Macrocytosis Present; Monocytes # (auto) 0.11 K/uL (0.11-0.59); Monocytes % (auto) 3.4 %; Neutrophils # (auto) 1.34 K/uL (1.40-6.50); Neutrophils % (auto) 41.5 %; Ovalocytes 1+; Platelet Estimate Decreased (Normal)
--- NOTE | 2024-07-02 07:17 | CT Scan Report ---
CT head/brain wo con CLINICAL HISTORY: Fall Technique: Contiguous axial CT images of the head were acquired from the base of the skull to the kirsten iain without intravenous contrast administration. Images were viewed in brain, subdural and [facility]. Automated dose lowering techniques and/or adjustment according to patient size were utilized for this exam. Comparison: Comparison is made to CT head 10/19/2011 Findings: The ventricles, basal cisterns, and cerebral sulci are normal. There is no acute intracranial hemorrh age or evidence of acute territorial infarction. Neither mass effect, shift of the midline structures , nor abnormal extra-axial fluid collections are shown. Imaged portions of the paranasal sinuses and mastoid air cells are clear. The orbits appear normal. There are no acute fractures of the calvaria or scalp swelling. Impression: No acute intracranial hemorrhage, no evidence of acute territorial infarction or other acute intracra nial disease process. ACT 112: Negative or not required by law. Electronically signed by: Bro Jefferson M.D. 07/02/2024 7:16 AM
--- NOTE | 2024-07-02 07:39 | Oncology Consultation ---
Date of Consultation July 02, 2024 Assessment & Plan (1) Pancytopenia: (2) Macrocytic anemia: (3) Leukopenia: (4) Thrombocytopenia: (5) B12 deficiency: Plan Patients symptoms, labs including pancytopenia, macrocytosis, poor retic response also TMA like labs (elevated LDH, hyperbilirubinemia, thrombocytopenia) likely due to severe B12 deficiency. -Recommend parenteral B12 supplementation once a day -Obtain iron studies (although ferritin, iron could be falsely elevated since he already received PRBC transfusion) -If he denies excessive alcohol intake, may be worthwhile to obtain testing for malabsorption- pernicious anemia/celiac dx -If cytopenias do not improve with B12 supplementation,will consider further workup including bone marrow biopsy History of Present Illness Reason for Consultation: Pancytopenia Attending Physician: Asha Galloway MD History of Present Illness 74 year old who presented with fatigue with outpatient labs revealing anemia with hemoglobin of 7.1. Labs obtained in the ER revealed hb of 7.1, HCT of 19.8 with MCV of 117, retic 0.02. WBC 3.6, LDH 959 and total Bili of 3.8. B12 was severely low at <50, noemí folate level. Received 1 unit PRBC transfusion. Patient not seen by me in person so above history was obtained by reviewing his chart Allergies Allergy/AdvReac Type Severity Reaction Status Date / Time No Known Allergies Unverified 07/01/24 15:03 Home Medications Medication Instructions Recorded Confirmed Type finasteride 5 mg tablet 5 mg PO DAILY 07/01/24 07/01/24 History lisinopril 10 1 tab PO DAILY 07/01/24 07/01/24 History mg-hydrochlorothiazide 12.5 mg tablet simvastatin 20 mg tablet 20 mg PO DAILY 07/01/24 07/01/24 History Patient History Medical History No pertinent family history HLD (hyperlipidemia) HTN (hypertension) Weakness Surgical History No pertinent past surgical history Social History Smoking Status: Never smoker Hx Alcohol Use: No Hx Substance Use: No Preferred Language: Japanese Communication Ability: Effective 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 Beliefs That Will Affect Care: None Current Living Situation: Alone Other Information That Helps Us Care for You: No Feels Safe at Home: Yes Safety Concerns: Feels Safe At This Time Assistive Devices: Cane and Glasses Results & Data Vital Signs (Past 12 Hours) Vital Signs Temp Pulse Pulse Resp BP Pulse Ox Pulse Ox 07/02/24 03:04 36.6 C 75 19 108/72 97 07/01/24 23:01 36.6 C 68 18 94/58 L 99 07/01/24 21:51 86 07/01/24 21:07 98 07/01/24 20:56 36.5 C 87 16 115/75 98 07/01/24 20:42 84 13 123/73 98 07/01/24 20:00 126/80 07/01/24 19:48 36.6 C 72 16 110/76 100 O2 Del Method O2 Del Method 07/02/24 03:04 Room Air 07/01/24 23:01 Room Air 07/01/24 21:51 07/01/24 21:07 Room Air 07/01/24 20:56 Room Air 07/01/24 20:42 Room Air 07/01/24 20:00 07/01/24 19:48 Room Air
[2024-07-02 07:50] LABS: Hematocrit (blood only) 19.4 % (42.0-52.0); Hemoglobin 7.1 g/dl (14.0-18.0)
--- NOTE | 2024-07-02 07:58 | XRay Report ---
XR ribs LT min 2V w CXR1V CLINICAL HISTORY: Fall TECHNIQUE: 3 views of the left ribs were obtained. Single frontal view of the chest was obtained. Comparison: Comparison is made to chest radiograph 07/01/2024 FINDINGS: No acute fractures are seen. The chest wall and soft tissues are normal. No lines and tubes are seen. The cardiomediastinal silhouette is normal. The lungs are clear. No evid ence of pleural effusion or pneumothorax. IMPRESSION: No evidence of acute fracture or other acute abnormalities in the visualized portions of the chest. ACT 112: Negative or not required by law. Electronically signed by: Bro Jefferson M.D. 07/02/2024 7:57 AM
[2024-07-02] MEDS: ACETAMINOPHEN 325 MG TAB PO PRN (08:02)
[2024-07-02 08:32] LABS: Ferritin 828.4 ng/ml (8-388)
[2024-07-02 08:49] LABS: Iron 193 mcg/dl (35-175); Unsaturated Iron Binding Cap < 55 mcg/dl (155-355)
[2024-07-02] MEDS: CYANOCOBALAMIN 1000 MCG/ML VIAL IM SCH (10:03)
[2024-07-02] MEDS: SIMVASTATIN 20 MG TAB PO SCH (10:03)
[2024-07-02 11:19] LABS: Hematocrit (blood only) 20.4 % (42.0-52.0); Hemoglobin 7.5 g/dl (14.0-18.0)
[2024-07-02] MEDS: LIDOCAINE 5% 1 PATCH TD STA (22:12)
[2024-07-02] MEDS: MoRPHine SULFATE 2 MG/ML CARP IV PRN (22:13)
[2024-07-03] MEDS: MoRPHine SULFATE 2 MG/ML CARP IV PRN (01:34)
[2024-07-03 06:34] LABS: Hematocrit (blood only) 18.2 % (42.0-52.0); Hemoglobin 6.7 g/dl (14.0-18.0); Mean Corpuscular Hemoglobin 40.1 pg (25.0-34.0); Mean Corpuscular Hgb Conc 36.8 g/dL (32.0-36.0); Mean Platelet Volume 11.2 fL (9.4-12.4); Platelet Count 68 K/uL (130-400); RDW Coefficient of Variation 20.7 % (11.5-14.5); RDW Standard Deviation 79.1 fL (36.4-46.3); Red Blood Count 1.67 M/uL (4.70-6.10); White Blood Count 3.23 K/ul (4.8-10.8)
[2024-07-03] MEDS ORDERED: SODIUM CHLORIDE 0.9% 100 ML IV PRN (06:36)
[2024-07-03 06:50] LABS: Anisocytosis Present; Eosinophils # (auto) 0.04 K/uL (0.00-0.50); Eosinophils % (auto) 1.2 %; Immature Granulocytes # (auto) 0.01 K/uL (0.01-0.20); Immature Granulocytes % (auto) 0.3 %; Lymphocytes % (auto) 58.8 %; Monocytes % (auto) 3.1 %; Neutrophils # (auto) 1.18 K/uL (1.40-6.50); Neutrophils % (auto) 36.6 %; Polychromasia 2+
[2024-07-03 07:00] LABS: BUN Creatinine Ratio 22.9 (10-20); Calcium 8.8 mg/dl (8.6-10.3); Creatinine Clr Calc Pharmacy 68.8 ml/min; Potassium 3.5 mmol/L (3.5-5.1)
--- NOTE | 2024-07-03 07:06 | Hospitalist Progress Note ---
Date of Service July 03, 2024 Assessment & Plan (1) Pancytopenia: (2) Macrocytic anemia: (3) Leukopenia: (4) Thrombocytopenia: (5) Unwitnessed fall: (6) SIRS (systemic inflammatory response syndrome): (7) Hypotension: Plan Mr. Foster is a 74yo male with PMH notable for HLD and HTN who was admitted due to abnormal labs showing pancytopenia with severe anemia. Pt reports 1 month hx of progressive fatigue. He has been working with his PCP and recently had labs drawn. He was scheduled to see hem/onc next week. CBC and smear in ED showed pancytopenia with hypersegmented neutrophils, polychromasia, ovalmacrocytes and tear drop cells. Bilirubin had increased from 2.6 on 06/22 to 3.8. Liver enzymes were at normal level. Pt received 1 unit pRBC in ED and Hbg increased from 7.1 to 8.1. Macrocytic Anemia On 07/02, Folate is at normal level, B12 is <50. Direct hesham- Negative. Fe= 193, ferritin= 828.4, IBC <55. Hem/onc recommended testing for celiac and pernicious anemia, - IgA= 176.6, TgIgA, intrinsic factor testing in pending. -Hbg 6.7 on AM labs 07/03 - Transfusion ordered 1 unit pRBC, H&H at 1500 Hgb 8.6, Hct 24.2 - Ordered Fecal occult blood to assess for possible cause of drop in Hbg - Hematology recommendations from 07/02 include further testing for celiac and intrinsic factor as well as daily parental B12. If cytopenia does not improve, consider bone marrow biopsy - IV cyanocobalamin 1000mcg qd - Continue to monitor with CBC Leukopenia - WBC holding at 3.23 - Neutrophils 1.18 down from 2.3 at admission - Afebrile, no sx of infection - Continue to monitor Thrombocytopenia Platelet are holding at 68 - Continue to monitor Unwitnessed fall CT head and CXR returned negative. Pt reporting reduction in rib discomfort and increase ability to move with less pain. Continues to deny vision changes, dizziness or pain at his forehead. No cognitive changes noted. Contusion is a superficial skin tear and did require sutures. Dry bandage remains in place. - Consider forehead bandage removal - Acetaminophen PO 650mg q4h PRN for pain - Pt on fall precautions - Will continue to monitor for dizziness, confusion, neurological changes from current baseline - Consider PT/OT eval prior to discharge to assess safety SIRS Met SIRS criteria on arrival w HR > 90, RR > 20, WBC < 4 and stabilized after 2.5L nss. Lactate 3.8 on arrival -->1.1 after IVF. Cefepime 2g IV given in ED. Continues afebrile. - No s/s of infection via UA or CXR - Blood cultures have no growth at 24 hrs Hypotension BP 71/46 on arrival, improved after saline bolus & transfusion to 110s/60s. BP's remain soft, but patient is asymptomatic - Monitor vitals; - Encourage PO fluids - IVF as needed - Hold home meds - lisinopril-HCTZ and finasteride Ongoing Conditions: HLD: Continue Simvastatin 20mg PO qhs Diet: regular DVT ppx: SCDs Dispo: PCU/tele Admission and Anticipated Discharge Date Admission Date: July 01, 2024 Supervising Physician Co-Signing Physician Notes Attending Physician Supervision Note: I independently interviewed and examined the patient and verified the timmons history and physical, reviewed labs and image studies and agree with findings a nd care plan noted above. denied any concerns this am. doesn't remember his stool color or any other source of bleeding. left chest wall pain improved with lidocaine patch. Pancytopenia in setting of severe B12 deficiency -replacing with IM 1000mcg B12. -Seen by hematology -Assess for alcohol -If negative for excess alcohol use - then consider testing for celiac ds and pernicious anemia. -If no response to B12 replacement - then consider bone marrow biopsy. 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 -Ordered transglutaminase, IF and parietal cell antibody. -d/t further drop in hb - 1prbc given. -check blood in stool Unwitnessed Fall -superficial forehead abrasion with bleeding. Bleeding resolved with Compression dressing -Head CT and rib xray negative. Holding HCTZ/lisinopril and finasteride. SCD Subjective Pt is a 74 yo male who was admitted for anemia requiring blood transfusion. This morning, pt report rib pain/discomfort has improved since yesterday. He feels that he can change positions with less pain and can take deeper breaths. Pt continue to deny headache or head pain. Pt denies dizziness, chest pain, SOB, numbness/tingling, or abdominal pain Alcohol history: Pt reports he does not currently drink alcohol. He states he had a history of alcohol use disorder approximately 30 years ago when he was in the . After 10 years of heavy use, pt was hospitalized for detox and alcohol rehab. He has not used alcohol since that time. Review of Systems Review of Systems: As per HPI Physical Exam Constitutional: cooperative and comfortable; no acute distress and not ill appearing Eyes: PERRL, conjunctivae normal, anicteric sclerae Respiratory: normal respiratory effort, lungs clear to auscultation Breaths are somewhat shallow at rest Cardiovascular: RRR, no murmur, no edema Gastrointestinal (Abdomen): normal bowel sounds, soft, nontender, no hepatosplenomegaly Musculoskeletal: no cyanosis or clubbing, extremities motor strength 5/5 Neurologic: PERRL, EOMI, accommodation nl, no face palsy, no dysarthria Motor/Sensory: no tremor, no pronator drift and no sensory deficit Psychiatric: A+Ox3, euthymic affect Results & Data Results & Data Vital Signs (Past 12 Hours) Vital Signs Temp Pulse Pulse Resp BP Pulse Ox O2 Del Method 07/03/24 04:06 36.7 C 67 18 105/65 95 Room Air 07/02/24 23:06 36.8 C 75 18 110/68 98 Room Air 07/02/24 21:49 62 07/02/24 21:49 62 07/02/24 19:11 36.9 C 81 18 99/61 L 97 Room Air Resident Activity Tracking Resident Involvement: Resident Care Provided Care Provided: Adult Hospital Medicine
[2024-07-03 15:54] LABS: Hematocrit (blood only) 24.2 % (42.0-52.0); Hemoglobin 8.6 g/dl (14.0-18.0)
[2024-07-04 06:22] LABS: Basophils # (auto) 0.01 K/uL (0.00-0.20); Basophils % (auto) 0.2 %; Eosinophils # (auto) 0.09 K/uL (0.00-0.50); Eosinophils % (auto) 1.7 %; Hematocrit (blood only) 23.4 % (42.0-52.0); Hemoglobin 8.4 g/dl (14.0-18.0); Immature Granulocytes # (auto) 0.06 K/uL (0.01-0.20); Immature Granulocytes % (auto) 1.2 %; Lymphocytes # (auto) 2.15 K/uL (1.20-3.40); Lymphocytes % (auto) 41.7 %; Mean Corpuscular Hemoglobin 37.5 pg (25.0-34.0); Mean Corpuscular Hgb Conc 35.9 g/dL (32.0-36.0); Mean Corpuscular Volume 104.5 fL (80.0-100.0); Mean Platelet Volume 12.2 fL (9.4-12.4); Monocytes % (auto) 7.8 %; Neutrophils # (auto) 2.45 K/uL (1.40-6.50); Neutrophils % (auto) 47.4 %; Nucleated RBC # (auto) 0.03 K/uL (0.00-0.12); Nucleated RBC % (auto) 0.6 %; Platelet Count 63 K/uL (130-400); Red Blood Count 2.24 M/uL (4.70-6.10); White Blood Count 5.16 K/ul (4.8-10.8)
[2024-07-04 06:41] LABS: BUN Creatinine Ratio 17.9 (10-20); Calcium 8.9 mg/dl (8.6-10.3); Creatinine Clr Calc Pharmacy 68.1 ml/min; Potassium 4.1 mmol/L (3.5-5.1)
[2024-07-04 06:50] LABS: Hypersegmented Neutrophils 1+; Ovalocytes 1+; Polychromasia 1+; Tear Drop Cells 1+
--- NOTE | 2024-07-04 07:29 | Hospitalist Progress Note ---
Date of Service July 04, 2024 Assessment & Plan (1) Pancytopenia: (2) Macrocytic anemia: (3) Leukopenia: (4) Thrombocytopenia: (5) Unwitnessed fall: (6) SIRS (systemic inflammatory response syndrome): (7) Hypotension: Plan Mr. Foster is a 74yo male with PMH notable for HLD and HTN who was admitted due to abnormal labs showing pancytopenia with severe anemia. Pt reports 1 month hx of progressive fatigue. He has been working with his PCP and recently had labs drawn. He was scheduled to see hem/onc next week. CBC and smear in ED showed pancytopenia with hypersegmented neutrophils, polychromasia, ovalmacrocytes and tear drop cells. Bilirubin had increased from 2.6 on 06/22 to 3.8. Liver enzymes were at normal level. Pt received 1 unit pRBC in ED and Hbg increased from 7.1 to 8.1. Macrocytic Anemia On 07/02, Folate is at normal level, B12 is <50. Direct hesham- Negative. Fe= 193, ferritin= 828.4, IBC <55. Hem/onc recommended testing for celiac and pernicious anemia, - IgA= 176.6, TgIgA, intrinsic factor testing in pending. -Hbg 6.7 on AM labs 07/03 - Transfusion ordered 1 unit pRBC, H&H at 1500 Hgb 8.6, Hct 24.2 - Ordered Fecal occult blood to assess for possible cause of drop in Hbg - Hematology recommendations from 07/02 include further testing for celiac and intrinsic factor as well as daily parental B12. If cytopenia does not improve, consider bone marrow biopsy - IV cyanocobalamin 1000mcg qd - Continue to monitor with CBC Leukopenia - WBC holding at 3.23 - Neutrophils 1.18 down from 2.3 at admission - Afebrile, no sx of infection - Continue to monitor Thrombocytopenia Platelet are holding at 68 - Continue to monitor Unwitnessed fall CT head and CXR returned negative. Pt reporting reduction in rib discomfort and increase ability to move with less pain. Continues to deny vision changes, dizziness or pain at his forehead. No cognitive changes noted. Contusion is a superficial skin tear and did require sutures. Dry bandage remains in place. - Consider forehead bandage removal - Acetaminophen PO 650mg q4h PRN for pain - Pt on fall precautions - Will continue to monitor for dizziness, confusion, neurological changes from current baseline - Consider PT/OT eval prior to discharge to assess safety SIRS Met SIRS criteria on arrival w HR > 90, RR > 20, WBC < 4 and stabilized after 2.5L nss. Lactate 3.8 on arrival -->1.1 after IVF. Cefepime 2g IV given in ED. Continues afebrile. - No s/s of infection via UA or CXR - Blood cultures have no growth at 24 hrs Hypotension BP 71/46 on arrival, improved after saline bolus & transfusion to 110s/60s. BP's remain soft, but patient is asymptomatic - Monitor vitals; - Encourage PO fluids - IVF as needed - Hold home meds - lisinopril-HCTZ and finasteride Ongoing Conditions: HLD: Continue Simvastatin 20mg PO qhs Diet: regular DVT ppx: SCDs Dispo: PCU/tele Admission and Anticipated Discharge Date Admission Date: July 01, 2024 Subjective Pt is a 74 yo male who was admitted for anemia requiring blood transfusion. This morning, pt report rib pain/discomfort has improved since yesterday. He feels that he can change positions with less pain and can take deeper breaths. Pt continue to deny headache or head pain. Pt denies dizziness, chest pain, SOB, numbness/tingling, or abdominal pain Alcohol history: Pt reports he does not currently drink alcohol. He states he had a history of alcohol use disorder approximately 30 years ago when he was in the . After 10 years of heavy use, pt was hospitalized for detox and alcohol rehab. He has not used alcohol since that time. Review of Systems Review of Systems: As per HPI Physical Exam Constitutional: cooperative and comfortable; no acute distress and not ill appearing Eyes: PERRL, conjunctivae normal, anicteric sclerae Respiratory: normal respiratory effort, lungs clear to auscultation Cardiovascular: RRR, no murmur, no edema Gastrointestinal (Abdomen): normal bowel sounds, soft, nontender, no hepatosplenomegaly Musculoskeletal: no cyanosis or clubbing, extremities motor strength 5/5 Neurologic: PERRL, EOMI, accommodation nl, no face palsy, no dysarthria Motor/Sensory: no tremor, no pronator drift and no sensory deficit Psychiatric: A+Ox3, euthymic affect Results & Data Results & Data Vital Signs (Past 12 Hours) Vital Signs Temp Pulse Pulse Resp BP Pulse Ox O2 Del Method 07/04/24 03:05 36.6 C 68 18 123/73 94 Room Air 07/03/24 23:07 36.7 C 91 H 18 133/76 93 Room Air 07/03/24 21:57 77 07/03/24 21:07 O2 Del Method 07/04/24 03:05 07/03/24 23:07 07/03/24 21:57 07/03/24 21:07 Room Air
[2024-07-04 08:49] LABS: Bilirubin Direct 0.2 mg/dl (0-0.2); Bilirubin,Total 2.7 mg/dl (0.2-1.0)
[2024-07-04 08:55] LABS: Reticulocyte % 1.25 % (0.50-2.00); Reticulocytes # 0.03 10^6/uL (0.020-0.100)
[2024-07-04] MEDS: FINASTERIDE 5 MG TAB PO SCH (10:33)
[2024-07-04 12:02] VITALS: BP 122/75; PULSE 100; RESP 18; TEMP 97.7; O2SAT 98
--- NOTE | 2024-07-04 14:08 | Discharge Summary ---
Date of Service July 04, 2024 Admission HPI Per Admitting Provider Nakul Foster is a 74yo M w H notable for HLD and HTN who presents with provider recommendation due to abnormal labs. He reports that for the past ~1 month he has been experiencing worsening fatigue. More recently, he is having trouble walking from room to room in his house due to becoming so easily exhausted. He lives alone, but reports he has not needed assistance further than a cane, which he has never needed until ~2wk ago, and no falls. He went to his PCP last week, who found low Hgb and scheduled a heme appt. Today his PCP found a Hgb of 7.1 and advised pt to go to ED. He was given 2.5L IV fluids and 1 unit of blood. He now reports feeling much better, is resting and communicating comfortably in his bed. Denies fevers, chills, unexpected weight loss, CP, SOB, cough, abd pain, n/v/c/d, change in bowel habits or stool color, dysuria, bruising or bleeding, and any numbness or tinging. He does report a poor diet: chronic low intake due to low appetite, eats mostly just fruit; change this week to no appetite at all. He does not drink, has never smoked. He denies any fam hx of anemia or malignancies. He has never experienced anything similar, been told he is anemia, or required blood transfusion. He takes his medications regularly as prescribed, and takes no other supplements. Principal Diagnosis Pancytopenia, Vit B12 deficiency Discharge Exam Constitutional cooperative and comfortable; no acute distress and not ill appearing Eyes PERRL, conjunctivae normal, anicteric sclerae Respiratory normal respiratory effort, lungs clear to auscultation Cardiovascular RRR, no murmur, no edema Gastrointestinal (Abdomen) normal bowel sounds, soft, nontender, no hepatosplenomegaly Musculoskeletal no cyanosis or clubbing, extremities motor strength 5/5 Neurologic PERRL, EOMI, accommodation nl, no face palsy, no dysarthria Motor/Sensory: no tremor, no pronator drift and no sensory deficit Psychiatric A+Ox3, euthymic affect Discharge Data Allergies Allergy/AdvReac Type Severity Reaction Status Date / Time No Known Allergies Unverified 07/01/24 15:03 Consultations 07/01/24 14:37 ED Decision to Admit Stat 07/01/24 21:27 Consult Hematology Routine Ordered Studies 07/02/24 06:32 CT head/brain wo con Urgent Hospital Course (1) Pancytopenia: (2) Macrocytic anemia: (3) Leukopenia: (4) Thrombocytopenia: (5) Unwitnessed fall: (6) SIRS (systemic inflammatory response syndrome): (7) Hypotension: (8) B12 deficiency: Plan Mr. Foster is a 74yo male with PMH notable for HLD and HTN who was admitted due to abnormal labs showing pancytopenia with severe anemia. Pt reports 1 month hx of progressive fatigue. He has been working with his PCP and recently had labs drawn. He was scheduled to see hem/onc next week. CBC and smear in ED showed pancytopenia with hypersegmented neutrophils, polychromasia, ovalmacrocytes and tear drop cells. Bilirubin had increased from 2.6 on 06/22 to 3.8. Liver enzymes were at normal level. Pt received 1 unit pRBC in ED and Hbg increased from 7.1 to 8.1. Macrocytic Anemia On 07/02, Folate is at normal level, B12 is <50. Direct hesham- Negative. Fe= 193, ferritin= 828.4, IBC <55. Hem/onc recommended testing for celiac and pe rnicious anemia. Pt has received total of 2 unit of pRBC during this stay. . -Hbg 8.4 on AM labs 07/03 - IgA= 176.6, TgIgA, intrinsic factor testing in pending. - Ordered Fecal occult blood -not collected - IV cyanocobalamin 1000mcg qd - Will continue IM B12 injection daily x 4 days with PCP Leukopenia - WBC in normal range at 5.16 on 07/04 Thrombocytopenia Platelet remain at low range at 63 - Continue to monitor in outpatient Unwitnessed fall CT head and CXR returned negative. Pt reporting reduction in rib discomfort and increase ability to move with less pain. Continues to deny vision changes, dizziness or pain at his forehead. No cognitive changes noted. Contusion is a superficial skin tear and did not require sutures. Bandage removed - Pain control with Acetaminophen 650mg q6h as needed SIRS Met SIRS criteria on arrival w HR > 90, RR > 20, WBC < 4 and stabilized after 2.5L nss. Lactate 3.8 on arrival -->1.1 after IVF. Cefepime 2g IV given in ED. Continues afebrile. - No s/s of infection via UA or CXR - Blood cultures negative with no growth at 48 hrs Hypotension BP 71/46 on arrival, improved after saline bolus & transfusion to 110s/60s. BP's remain soft, but patient is asymptomatic - Monitor vitals; - Encourage PO fluids - home meds - lisinopril-HCTZ Ongoing Conditions: HLD: Continue Simvastatin 20mg PO qhs Total Time Total Time Spent Total Time Spent (In Minutes): <30 Discharge Plan Discharge Items Patient Disposition: Home - Self-Care Reason For Visit: PANCYTOPENIA Discharge Diagnosis: Pancytopenia, Vitamin B12 deficiency Activity: Resume your previous activity Non-emergency contact: Primary Care Provider Call non-emergency contact if: your symptoms worsen Follow-up/Referrals: Mesfni Howard [Primary Care Provider] - (Needs nursing visit starting to [facility] for daily B12 injections for the next 4 days. Will need f/u with PCP in 2-3 days. Thanks!) Diet: Regular Addtl Attending Provider Instructions: You were hospitalized for low blood cell counts, particularly hemoglobin. You received two unit of packed red blood cells as well as IV fluids and a short course of antibiotics. During your stay, we found that you are deficient in Vitamin B12- which is what is causing your low blood counts. You have received three doses of IV Vitamin B12. We want you to continue daily injections of B12 with your PCP. We are sending a prescription to your pharmacy for a vial of Vitamin B12, which you will need to sweet pickle maker and take to your PCP for administration, you should call their office to get scheduled for a nurses visit starting tomorrow to get your injection everyday for the next 4 days and then once a week for the next month. You should also make a follow up appointment with your primary care doctor within the next week for a follow up and to have repeat labs. You blood pressure has been on the lower end of normal, so we have been holding your lisinopril-HCTZ. Continue to hold until you follow up with you primary care doctor this week, they can help guide you on when to restart it based on your blood pressure. Pending Studies at Discharge: Yes Stand-Alone Forms: My [facility] [employer], Smoking Cessation Medications and DC Order Prescriptions: New cyanocobalamin (vitamin B-12) 1,000 mcg/mL solution 1,000 mcg IM DAILY 4 Days Qty: 4 0RF Rx Instructions: Once daily for the next 4 days, once weekly for the following month Continued simvastatin 20 mg tablet 20 mg PO DAILY finasteride 5 mg tablet 5 mg PO DAILY Held lisinopril-hydrochlorothiazide 10-12.5 mg tablet 1 tab PO DAILY Hold Instructions: F/u with primary care doctor for blood pressure check. Restart if elevated. Discharge Orders: Discharge Order (Routine); Ordered 07/04/24 Ordered By: Mindy Miller Admission Data Admit Date/Time: 07/01/24 19:50 Attending Provider: Tayo Zaragoza Admit Provider: Penny Mo Primary Care Provider: Mesfin Howard Other Providers: Javier Calero; Gretchen Lr; [facility] Fax Other Interventions: Discharge Summary Assessment (RN) Last Done: 07/04/24 15:42 Supervising Physician Co-Signing Physician Notes I personally examined the patient and verified all timmons points of history and exam, discussed case, and agree with decision making with Dr Hong feeling better feels up to going home. vitals noted nad heent nc at mmm. unassisted, able to sit up in bed, stand to walker, walk to toilet, get on toilet - all slow but steady. breathing unlabored no accessory muscles good effort skin no rashes no pallor or icterus Pancytopenia in setting of severe B12 deficiency -replacing with IM 1000mcg B12. -Seen by hematology -testing for celiac ds and pernicious anemia pending -replacing B12 - 1000mcg IM daily x 7 days, then weekly x4wks then monthly thereafter -If no response to B12 replacement - then consider bone marrow biopsy. 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 -Ordered transglutaminase, IF and parietal cell antibody. -safe/stable for home - outpt PCP f/u and f/u on periodic CBC, B12 levels (discussed that if marrow responds well to B12 and then if B12 levels are good, possibly in a few months could switch to oral supplementation for easier administration and follow levels - but for now since IM is most reliable means to admin - would do that since B12 deficiency is quite profound and caused significant marrow hypoproliferation) Unwitnessed Fall -superficial forehead abrasion with bleeding. Bleeding resolved with Compression dressing -Head CT and rib xray negative. BPH - appears to have moderately severe sx despite finasteride for ?months; BP a little on the low end doubt he'd be able to tolerate alpha lindy --> d/w pt and will set things in motion for urology eval to consider interventions to alleviate LUTS currently has ~235 post void residual so not in danger of true urinary retention/obstructive uropathy safe/stable for home, otherwise as above Resident Activity Tracking Resident Involvement: Resident Care Provided Care Provided: Adult Hospital Medicine
--- NOTE | 2024-07-04 17:11 | Billing Data ---
Date of Service July 04, 2024 Coding Level of Care Code 76454 IN/OBS DISCH 30 MIN/LESS
--- NOTE | 2024-07-04 22:04 | Billing Data ---
Date of Service July 01, 2024 Coding Level of Care Code 65941 INT INP/OBS CARE
[2024-07-07 16:13] LABS: Intrinsic Factor Blocking Ab Positive (Negative)
== END 2024-07-04 16:40 | disposition home or self-care (01) | DRG 809 ==
LOC: ED 13:12 → 2E 19:50 → SUATTDRO 19:50 → 2E 20:44

== ENCOUNTER 2024-07-04 19:25 | Observation (INO) ==
[2024-07-04 19:55] LABS: Basophils # (auto) 0.01 K/uL (0.00-0.20); Basophils % (auto) 0.2 %; Eosinophils # (auto) 0.06 K/uL (0.00-0.50); Eosinophils % (auto) 0.9 %; Hematocrit (blood only) 23.9 % (42.0-52.0); Hemoglobin 8.8 g/dl (14.0-18.0); Immature Granulocytes # (auto) 0.14 K/uL (0.01-0.20); Immature Granulocytes % (auto) 2.1 %; Lymphocytes # (auto) 1.94 K/uL (1.20-3.40); Lymphocytes % (auto) 29.5 %; Mean Corpuscular Hemoglobin 37.9 pg (25.0-34.0); Mean Corpuscular Hgb Conc 36.8 g/dL (32.0-36.0); Monocytes # (auto) 0.63 K/uL (0.11-0.59); Monocytes % (auto) 9.6 %; Neutrophils % (auto) 57.7 %; Nucleated RBC # (auto) 0.07 K/uL (0.00-0.12); Nucleated RBC % (auto) 1.1 %; Platelet Count 68 K/uL (130-400); Red Blood Count 2.32 M/uL (4.70-6.10); White Blood Count 6.58 K/ul (4.8-10.8)
[2024-07-04 20:12] LABS: Albumin Globulin Ratio 2.1 (0.9-2); Albumin Level 4.5 gm/dl (3.4-5.0); BUN Creatinine Ratio 16.8 (10-20); Bilirubin,Total 3.6 mg/dl (0.2-1.0); Calcium 9.4 mg/dl (8.6-10.3); Creatinine Clr Calc Pharmacy 71.5 ml/min; Globulin 2.1 gm/dl (2.5-4.0); Potassium 3.4 mmol/L (3.5-5.1); Total Protein 6.6 gm/dl (6.0-8.3)
[2024-07-04 20:18] LABS: Troponin I High Sensitivity 16.1 pg/ml (0-20)
[2024-07-04 20:20] LABS: INR 1.1 (0.9-1.1); Prothrombin Time 11.8 Seconds (9.0-12.0)
[2024-07-04 20:28] LABS: Thyroid Stimulating Hormone 1.902 uIu/ml (0.300-4.500)
[2024-07-04 20:47] LABS: Anisocytosis Present; Hypersegmented Neutrophils 1+; Ovalocytes 1+; Polychromasia 1+; Tear Drop Cells 1+
[2024-07-04 20:53] LABS: Appearance Urine Clear (Clear); Bilirubin Urine Negative (Negative); Blood Urine Negative (Negative); Color Urine Yellow; Glucose Urine UA Negative (Negative); Ketones Urine Trace (Negative); Leukocyte Esterase Urine Negative (Negative); Nitrite Urine Negative (Negative); Protein Urine Negative (Negative); Specific Gravity Urine 1.007 (1.000-1.030); Urobilinogen Urine Negative (Negative); pH Urine 6.5 (4.5-7.5)
--- NOTE | 2024-07-04 21:36 | Emergency Department Note ---
Impression & Plan Ambulatory dysfunction, Weakness ED Provider Note HISTORY OF PRESENT ILLNESS: Patient is a 74-year-old male presenting after a near syncopal episode. Patient was just discharged from the hospital about 5 hours prior to arrival in the emergency department. He states that he got home today and felt very lightheaded and felt like he was get a pass out. He reports he lives alone and got concerned for his safety and called 911. He denies any chest pain or shortness of breath. He has chronic left rib pain that has been worked up during his previous admission. He denies losing consciousness. Denies any passing out or hitting his head. He did fall and hit his head previously, which prompted his presentation and admission to the hospital during this past admission. ROS: as above PHYSICAL EXAM: Constitutional: Patient appears in no acute distress. HENT: Head: Normocephalic and atraumatic. Eyes: EOMI, PERRL Mouth/Throat: Mucous membranes moist. Neck: Trachea midline. Neck supple. Cardiovascular: RRR, No murmurs, rubs or gallops. Intact distal pulses. Pulmonary/Chest: No respiratory distress. Breath sounds clear and equal bilaterally. No wheezes or rales. No chest wall tenderness to palpation. Abdominal: Abdomen soft, no tenderness, rebound or guarding. Musculoskeletal: No edema, tenderness or deformity noted. Skin: Warm and dry. No rash, erythema, pallor or cyanosis Psychiatric: Appropriate mood and affect for situation. Neurological: Alert and keenly responsive. CN II-XII grossly intact, moving all extremities equally and fully. MDM: - Vitals signs stable. - History obtained via patient. History as above. - Chronic conditions affecting care: HTN; HLD; anemia; thrombocytopenia - Differential diagnoses include, but are not limited to: CVA; intracranial hemorrhage; ACS; dysrhythmia; deconditioning; UTI - Order placed for continuous cardiac monitoring. At this time, monitor showed rate of 85 bpm with normal sinus rhythm, per my interpretation. - External medical records reviewed. Discharge summary dated 07/04/2024 was reviewed. Patient was admitted at that time for pancytopenia and vitamin B12 deficiency. - EKG interpreted by myself showed normal sinus rhythm. Rate 83 bpm. QT 408. No acute ischemic changes. Noted have a left bundle branch block, which was noted on previous EKGs. - Laboratory workup interpreted by myself showed normal WBC; chronic anemia (Hgb 8.8); normal PT/INR; hypokalemia (K 3.4); normal troponin; normal CK; normal TSH - UA negative for infection - CXR negative for pneumonia, per my interpretation - Patient reports he is unable to go home secondary to living alone and his near syncopal episode. He is agreeable for admission for PT/OT assessment and potential rehab placement. - Discussion was had with returned case inspector about patient's case and need for admission - Hospitalist, Dr. Norris, consulted for admission - [facility] ASSESSMENT AND PLAN: Diagnosis: Ambulatory dysfunction; generalized weakness Plan: admit Past Med/Surg History Problem List (Updated 07/04/24 @ 22:16 by Keturah Jones MD) Weakness (Acute) Ambulatory dysfunction (Acute) Unwitnessed fall Thrombocytopenia B12 deficiency Thrombocytopenia Hypotension Leukopenia SIRS (systemic inflammatory response syndrome) Macrocytic anemia Sepsis (Acute) Pancytopenia (Acute) Anemia (Acute) Medical History No pertinent family history HLD (hyperlipidemia) HTN (hypertension) Weakness Surgical History No pertinent past surgical history Social History Smoking Status: Never smoker Hx Alcohol Use: No Hx Substance Use: No Preferred Language: Russian Communication Ability: Effective Credit Card Control Clerk Required: No Beliefs That Will Affect Care: None Current Living Situation: Alone Feels Safe at Home: Yes Assistive Devices: Cane and Glasses Allergies Allergies Allergy/AdvReac Type Severity Reaction Status Date / Time No Known Allergies Unverified 07/01/24 15:03 Home Meds Home Medications Medication Instructions Recorded Confirmed finasteride 5 mg tablet 5 mg PO DAILY 07/01/24 07/04/24 lisinopril 10 1 tab PO DAILY 07/01/24 07/01/24 mg-hydrochlorothiazide 12.5 mg tablet simvastatin 20 mg tablet 20 mg PO DAILY 07/01/24 07/04/24 Previous Rx's Medication Instructions Recorded cyanocobalamin (vitamin B-12) 1,000 mcg IM DAILY 4 days #4 mL 07/04/24 1,000 mcg/mL injection solution Results & Data (ED) Vital Signs Vital Signs - 24 hr 07/04/24 19:32 07/04/24 19:32 07/04/24 19:47 Temperature 36.6 C Temperature Source Oral Pulse Rate 81 81 81 Respiratory Rate 20 20 Respiratory Effort / Characteristics Non-Labored Respiratory Depth Normal Respiratory Pattern Regular Blood Pressure 131/85 Blood Pressure Mean 100 Pulse Oximetry 97 97 Oxygen Delivery Method Room Air Room Air Sepsis Recent Fever Within 48 Hours No Sepsis New/Unexplained Change in Mental Status N/A Sepsis Action Taken by Nursing No Action Required 07/04/24 20:03 07/04/24 20:33 07/04/24 21:00 Temperature Temperature Source Pulse Rate 80 82 83 Respiratory Rate 24 16 16 Respiratory Effort / Characteristics Respiratory Depth Respiratory Pattern Blood Pressure 128/101 H 128/84 128/82 Blood Pressure Mean 110 98 95 Pulse Oximetry 96 95 95 Oxygen Delivery Method Room Air Room Air Room Air Sepsis Recent Fever Within 48 Hours Sepsis New/Unexplained Change in Mental Status Sepsis Action Taken by Nursing 07/04/24 21:30 Temperature Temperature Source Pulse Rate 85 Respiratory Rate 14 Respiratory Effort / Characteristics Respiratory Depth Respiratory Pattern Blood Pressure 121/85 Blood Pressure Mean 107 Pulse Oximetry 95 Oxygen Delivery Method Room Air Sepsis Recent Fever Within 48 Hours Sepsis New/Unexplained Change in Mental Status Sepsis Action Taken by Nursing Laboratory Data 07/04/24 19:42 07/04/24 19:42 Lab Results 07/04/24 07/04/24 Range/Units 19:42 20:44 WBC 6.58 (4.8-10.8) K/ul RBC 2.32 L (4.70-6.10) M/uL Hgb 8.8 L (14.0-18.0) g/dl Hct 23.9 L (42.0-52.0) % MCV 103.0 H (80.0-100.0) fL MCH 37.9 H (25.0-34.0) pg MCHC 36.8 H (32.0-36.0) g/dL Plt Count 68 L (130-400) K/uL MPV 12.0 (9.4-12.4) fL Immature Gran % (Auto) 2.1 % Neut % (Auto) 57.7 % Lymph % (Auto) 29.5 % [place] % (Auto) 9.6 % Eos % (Auto) 0.9 % Baso % (Auto) 0.2 % Neut # (Auto) 3.80 (1.40-6.50) K/uL Lymph # (Auto) 1.94 (1.20-3.40) K/uL [place] # (Auto) 0.63 H (0.11-0.59) K/uL Eos # (Auto) 0.06 (0.00-0.50) K/uL Baso # (Auto) 0.01 (0.00-0.20) K/uL Immature Gran # (Auto) 0.14 (0.01-0.20) K/uL Absolute Nucleated RBC 0.07 (0.00-0.12) K/uL Nucleated RBC % (auto) 1.1 % Hypersegmented Neuts 1+ Polychromasia 1+ Anisocytosis Present Tear Drop Cells 1+ Ovalocytes 1+ PT 11.8 (9.0-12.0) Seconds INR 1.1 (0.9-1.1) Sodium 137 (136-145) mmol/L Potassium 3.4 L (3.5-5.1) mmol/L Chloride 104 (98-107) mmol/L Carbon Dioxide 25 (21-32) mmol/L Anion Gap 8 (3-11) BUN 17 (6-23) mg/dl Creatinine 1.01 (0.6-1.4) mg/dl Est Cr Clr Drug Dosing 71.5 ml/min eGFR 78.53 BUN/Creatinine Ratio 16.8 (10-20) Glucose 112 H (70-99(Fasting)) mg/dl Calcium 9.4 (8.6-10.3) mg/dl Magnesium 2.0 (1.7-2.4) mg/dl Total Bilirubin 3.6 H (0.2-1.0) mg/dl AST 23 (13-39) U/L ALT 21 (7-52) U/L Alkaline Phosphatase 44 (34-104) U/L Total Creatine Kinase 55 (30-223) U/L Troponin I High Sens 16.1 (0-20) pg/ml Total Protein 6.6 (6.0-8.3) gm/dl Albumin 4.5 (3.4-5.0) gm/dl Globulin 2.1 L (2.5-4.0) gm/dl Albumin/Globulin Ratio 2.1 H (0.9-2) Lipase 34 (11-82) U/L TSH 1.902 (0.300-4.500) uIu/ml Urine Color Yellow Urine Appearance Clear (Clear) Urine pH 6.5 (4.5-7.5) Ur Specific D [place] 1.007 (1.000-1.030) Urine Protein Negative (Negative) Urine Glucose (UA) Negative (Negative) Urine Ketones Trace H (Negative) Urine Blood Negative (Negative) Urine Nitrite Negative (Negative) Urine Bilirubin Negative (Negative) Urine Urobilinogen Negative (Negative) Ur Leukocyte Esterase Negative (Negative) Discharge Plan Visit Data Chief Complaint: Syncope (Near Syncope) Stated Complaint: SYNCOPE. RIB PAIN ED Provider: Keturah Jones Discharge Problem: Ambulatory dysfunction, Weakness Forms Stand Alone Forms: My [facility] [place] [facility] Prescriptions Prescriptions: No Action simvastatin 20 mg tablet 20 mg PO DAILY lisinopril-hydrochlorothiazide 10-12.5 mg tablet 1 tab PO DAILY Hold Instructions: F/u with primary care doctor for blood pressure check. Restart if elevated. finasteride 5 mg tablet 5 mg PO DAILY cyanocobalamin (vitamin B-12) 1,000 mcg/mL solution 1,000 mcg IM DAILY 4 Days Qty: 4 0RF Rx Instructions: Once daily for the next 4 days, once weekly for the following month Referrals Referrals: Mesfin Howard [Primary Care Provider] -
--- NOTE | 2024-07-04 22:22 | History & Physical Report ---
Date of Service July 04, 2024 Assessment & Plan (1) Near syncope: (2) Weakness: (3) Ambulatory dysfunction: (4) B12 deficiency: (5) Macrocytic anemia: (6) Pancytopenia: Plan Near syncope/generalized weakness/ambulatory dysfunction/severe B12 deficiency- Admit to medical telemetry Continue with IM B12 1000 mcg daily Consult PT/OT Evaluation for inpatient rehab Question whether patient has combined systems degeneration secondary to B12 deficiency Hold finasteride, as may be associated with orthostatic hypotension Hypokalemia- Potassium 3.4 on admission Give Klor-Con 40 mill equivalents p.o. recheck in the a.m. Magnesium 2.0 Hypertension- Continue to hold lisinopril/HCTZ History of Present Illness Chief Complaint: The patient presents to the emergency department after a near syncopal episode, that occurred about 5 hours after being discharged from the hospital earlier in the day, where he felt lightheaded and dizzy but did not pass out Primary Care Provider: Mesfin Howard The patient is a 74-year-old male with a past medical history including generalized weakness, ambulatory dysfunction, history of falls, severe B12 deficiency, thrombocytopenia, SIRS, pancytopenia, BPH, hyperlipidemia, and sepsis. He had been found to have a severely low B12 level, which prompted his admission from 07/01-07/04/24. Upon arriving home, he became severely fatigued, lightheaded and dizzy, and nearly passed out as noted above. Due to the recurrence of the symptoms, he returned to the emergency department, underwent routine laboratories not significantly different than upon discharge, and was referred for evaluation for admission because he was not able to go home. The patient understands at this point that he likely should be sent to inpatient rehab, to get stronger, before he tries to go home again. Allergies Allergy/AdvReac Type Severity Reaction Status Date / Time No Known Allergies Unverified 07/01/24 15:03 Home Medications Medication Instructions Recorded Confirmed Type finasteride 5 mg tablet 5 mg PO DAILY 07/01/24 07/04/24 History lisinopril 10 1 tab PO DAILY 07/01/24 07/01/24 History mg-hydrochlorothiazide 12.5 mg tablet simvastatin 20 mg tablet 20 mg PO DAILY 07/01/24 07/04/24 History cyanocobalamin (vitamin B-12) 1,000 mcg IM DAILY 4 days #4 mL 07/04/24 07/04/24 Rx 1,000 mcg/mL injection solution Past Med/Surg History Problem List (Updated 07/05/24 @ 05:02 by Chencho Norris MD) Near syncope Weakness (Acute) Ambulatory dysfunction (Acute) Unwitnessed fall Thrombocytopenia B12 deficiency Thrombocytopenia Hypotension Leukopenia SIRS (systemic inflammatory response syndrome) Macrocytic anemia Sepsis (Acute) Pancytopenia (Acute) Anemia (Acute) Medical History No pertinent family history HLD (hyperlipidemia) HTN (hypertension) Weakness Surgical History No pertinent past surgical history Social History Smoking Status: Never smoker Hx Alcohol Use: No Hx Substance Use: No Preferred Language: Grenadian Communication Ability: Effective Office Machine Service Supervisor Required: No Beliefs That Will Affect Care: None Current Living Situation: Alone Other Information That Helps Us Care for You: No Feels Safe at Home: Yes Safety Concerns: Feels Safe At This Time Assistive Devices: Glasses Assistive Devices Comment: reading glasses Review of Systems Review of Systems: The patient denies chest pain, palpitations, cough, lower extremity swelling, sore throat, fevers, chills, sweats, weight change, fatigue, nausea, vomiting, diarrhea , constipation, abdominal pain, pelvic pain, blood in urine or stool, dysuria, urinary frequency or urgency, loss of consciousness, rash, abnormal bruising or bleeding, focal weakness, numbness or tingling in arms or legs, generalized arthralgias or myalgias, back or neck pain, or night sweats. The review of systems is otherwise negative other than for that already noted above, and at least 10 systems have been reviewed. Physical Exam Physical Exam: The patient is awake, looks very fatigued, normocephalic and atraumatic, lying in bed and in no acute distress. HEENT--PERRL, EOMI, mucous membranes and oropharynx normal Neck--supple. No JVD. No bruits. Thyroid normal, trachea midline, no adeno tyler. Heart--normal S1 and S2. No murmurs, rubs or gallops. Lungs--clear bilaterally, no respiratory distress, no accessory muscle use. Abdomen--normal bowel sounds and soft. Nontender. Nondistended, no hernias or masses, no organomegaly. Extremities--no cyanosis or clubbing. No edema. Dermatologic--normal skin turgor, normal color, no abnormal lymph nodes, no rash. Neurologic--cranial nerves II through XII grossly intact. Rheumatologic--normal range of motion. Psychiatric--normal affect. Results & Data Results & Data Vital Signs (Past 12 Hours) Vital Signs Temp Pulse Resp BP Pulse Ox O2 Del Method 07/04/24 21:30 85 14 121/85 95 Room Air 07/04/24 21:00 83 16 128/82 95 Room Air 07/04/24 20:33 82 16 128/84 95 Room Air 07/04/24 20:03 80 24 128/101 H 96 Room Air 07/04/24 19:47 81 07/04/24 19:32 81 20 97 Room Air 07/04/24 19:32 36.6 C 81 20 131/85 97 Room Air Laboratory Results Laboratory Results WBC 6.58 K/ul (4.8-10.8) 07/04/24 19:42 RBC 2.32 M/uL (4.70-6.10) L 07/04/24 19:42 Hgb 8.8 g/dl (14.0-18.0) L 07/04/24 19:42 Hct 23.9 % (42.0-52.0) L 07/04/24 19:42 MCV 103.0 fL (80.0-100.0) H 07/04/24 19:42 MCH 37.9 pg (25.0-34.0) H 07/04/24 19:42 MCHC 36.8 g/dL (32.0-36.0) H 07/04/24 19:42 Plt Count 68 K/uL (130-400) L 07/04/24 19:42 MPV 12.0 fL (9.4-12.4) 07/04/24 19:42 Immature Gran % (Auto) 2.1 % 07/04/24 19:42 Neut % (Auto) 57.7 % 07/04/24 19:42 Lymph % (Auto) 29.5 % 07/04/24 19:42 [place] % (Auto) 9.6 % 07/04/24 19:42 Eos % (Auto) 0.9 % 07/04/24 19:42 Baso % (Auto) 0.2 % 07/04/24 19:42 Neut # (Auto) 3.80 K/uL (1.40-6.50) 07/04/24 19:42 Lymph # (Auto) 1.94 K/uL (1.20-3.40) 07/04/24 19:42 [place] # (Auto) 0.63 K/uL (0.11-0.59) H 07/04/24 19:42 Eos # (Auto) 0.06 K/uL (0.00-0.50) 07/04/24 19:42 Baso # (Auto) 0.01 K/uL (0.00-0.20) 07/04/24 19:42 Immature Gran # (Auto) 0.14 K/uL (0.01-0.20) 07/04/24 19:42 Absolute Nucleated RBC 0.07 K/uL (0.00-0.12) 07/04/24 19:42 Nucleated RBC % (auto) 1.1 % 07/04/24 19:42 Hypersegmented Neuts 1+ 07/04/24 19:42 Polychromasia 1+ 07/04/24 19:42 Anisocytosis Present 07/04/24 19:42 Tear Drop Cells 1+ 07/04/24 19:42 Ovalocytes 1+ 07/04/24 19:42 PT 11.8 Seconds (9.0-12.0) 07/04/24 19:42 INR 1.1 (0.9-1.1) 07/04/24 19:42 Sodium 137 mmol/L (136-145) 07/04/24 19:42 Potassium 3.4 mmol/L (3.5-5.1) L 07/04/24 19:42 Chloride 104 mmol/L (98-107) 07/04/24 19:42 Carbon Dioxide 25 mmol/L (21-32) 07/04/24 19:42 Anion Gap 8 (3-11) 07/04/24 19:42 BUN 17 mg/dl (6-23) 07/04/24 19:42 Creatinine 1.01 mg/dl (0.6-1.4) 07/04/24 19:42 Est Cr Clr Drug Dosing 71.5 ml/min 07/04/24 19:42 eGFR 78.53 07/04/24 19:42 BUN/Creatinine Ratio 16.8 (10-20) 07/04/24 19:42 Glucose 112 mg/dl (70-99(Fasting)) H 07/04/24 19:42 Calcium 9.4 mg/dl (8.6-10.3) 07/04/24 19:42 Magnesium 2.0 mg/dl (1.7-2.4) 07/04/24 19:42 Total Bilirubin 3.6 mg/dl (0.2-1.0) H 07/04/24 19:42 AST 23 U/L (13-39) 07/04/24 19:42 ALT 21 U/L (7-52) 07/04/24 19:42 Alkaline Phosphatase 44 U/L (34-104) 07/04/24 19:42 Total Creatine Kinase 55 U/L (30-223) 07/04/24 19:42 Troponin I High Sens 16.1 pg/ml (0-20) 07/04/24 19:42 Total Protein 6.6 gm/dl (6.0-8.3) 07/04/24 19:42 Albumin 4.5 gm/dl (3.4-5.0) 07/04/24 19:42 Globulin 2.1 gm/dl (2.5-4.0) L 07/04/24 19:42 Albumin/Globulin Ratio 2.1 (0.9-2) H 07/04/24 19:42 Lipase 34 U/L (11-82) 07/04/24 19:42 TSH 1.902 uIu/ml (0.300-4.500) 07/04/24 19:42 Urine Color Yellow 07/04/24 20:44 Urine Appearance Clear (Clear) 07/04/24 20:44 Urine pH 6.5 (4.5-7.5) 07/04/24 20:44 Ur Specific [place] 1.007 (1.000-1.030) 07/04/24 20:44 Urine Protein Negative (Negative) 07/04/24 20:44 Urine Glucose (UA) Negative (Negative) 07/04/24 20:44 Urine Ketones Trace (Negative) H 07/04/24 20:44 Urine Blood Negative (Negative) 07/04/24 20:44 Urine Nitrite Negative (Negative) 07/04/24 20:44 Urine Bilirubin Negative (Negative) 07/04/24 20:44 Urine Urobilinogen Negative (Negative) 07/04/24 20:44 Ur Leukocyte Esterase Negative (Negative) 07/04/24 20:44 Code Status & VTE Plan Code Status full code VTE Prophylaxis Plan VTE Prophylaxis will be ordered: Yes PG Care Time/CCT Total # of Minutes Spent Total Time Spent with Patient: Total time spent is greater than 50% in coordination of care (as documented) at patient's floor/unit and/or counseling patient: Coding Level of Care Code 48399 INT INP/OBS CARE 2/55MIN Diagnoses Near syncope R55 Weakness R53.1 Ambulatory dysfunction R26.2 B12 deficiency E53.8 Macrocytic anemia D53.9 Pancytopenia D61.818
[2024-07-04] MEDS ORDERED: ACETAMINOPHEN 325 MG TAB PO PRN (22:47)
[2024-07-04] MEDS: POTASSIUM CHLORIDE CRTAB 20 MEQ TABCR PO STA (22:50)
[2024-07-05 05:11] LABS: Basophils # (auto) 0.01 K/uL (0.00-0.20); Basophils % (auto) 0.2 %; Eosinophils # (auto) 0.06 K/uL (0.00-0.50); Eosinophils % (auto) 1.1 %; Hematocrit (blood only) 22.9 % (42.0-52.0); Hemoglobin 8.2 g/dl (14.0-18.0); Immature Granulocytes # (auto) 0.13 K/uL (0.01-0.20); Immature Granulocytes % (auto) 2.5 %; Lymphocytes # (auto) 2.29 K/uL (1.20-3.40); Lymphocytes % (auto) 43.2 %; Mean Corpuscular Hemoglobin 37.6 pg (25.0-34.0); Mean Corpuscular Hgb Conc 35.8 g/dL (32.0-36.0); Mean Platelet Volume 12.4 fL (9.4-12.4); Monocytes # (auto) 0.53 K/uL (0.11-0.59); Neutrophils # (auto) 2.28 K/uL (1.40-6.50); Nucleated RBC # (auto) 0.06 K/uL (0.00-0.12); Nucleated RBC % (auto) 1.1 %; Platelet Count 75 K/uL (130-400); RDW Coefficient of Variation 21.3 % (11.5-14.5); RDW Standard Deviation 79.1 fL (36.4-46.3); Red Blood Count 2.18 M/uL (4.70-6.10)
[2024-07-05 05:20] LABS: Albumin Level 4.1 gm/dl (3.4-5.0); BUN Creatinine Ratio 15.5 (10-20); Calcium 8.9 mg/dl (8.6-10.3); Creatinine Clr Calc Pharmacy 74.4 ml/min; Magnesium 2.2 mg/dl (1.7-2.4); Phosphorus 2.6 mg/dl (2.5-4.9); Potassium 4.5 mmol/L (3.5-5.1)
[2024-07-05 05:34] LABS: Anisocytosis Present; Ovalocytes 1+; Polychromasia 1+; Tear Drop Cells 1+
--- NOTE | 2024-07-05 06:49 | XRay Report ---
XR chest 1V portable CLINICAL HISTORY: chest pain; near syncope COMPARISON STUDY: Chest radiograph and left rib series July 02, 2024. FINDINGS: Lung volumes are normal. There is no consolidation. Linear left basilar densities favor ate lectasis. There is no pneumothorax or pleural effusion. Cardiac size is stable. Mediastinal contours are normal. There is no evidence for pulmonary edema. IMPRESSION: 1. No acute cardiopulmonary findings. 2. Linear left basilar densities suggestive of atelectasis. ACT 112: Negative or not required by law. Electronically signed by: Donald Choi M.D. 07/05/2024 6:48 AM
[2024-07-05 07:04] LABS: Hypersegmented Neutrophils 1+
--- NOTE | 2024-07-05 07:23 | Hospitalist Progress Note ---
Date of Service July 05, 2024 Assessment & Plan (1) Near syncope: (2) Weakness: (3) Ambulatory dysfunction: (4) B12 deficiency: (5) Macrocytic anemia: (6) Pancytopenia: Plan Near syncope/generalized weakness/ambulatory dysfunction/severe B12 deficiency- Pt was recently dx with pancytopenia secondary to B12 deficiency. He received 2 units of pRBC as well as daily 1000mcg of B12 x 3 days. Pt had a fall during his hospital stay where he sustained an skin tear at his left temporal head as well as bruised ribs- no fx noted on CXR. - PT/OT eval; OT eval on 07/05 recommended short stay at inpatient rehab PT eval from 07/04 recommended home with home health - Continue 1000mcg B12 IM daily - Encourage PO fluids BPH Resume finasteride Hypokalemia- Potassium 3.4 on admission and given Potassium chloride 40 mEq PO in ED. Potassium is 4.0 on 07/05 - Monitor with AM labs Hypertension- Continue to hold lisinopril/HCTZ due to hypotension Admission and Anticipated Discharge Date Admission Date: July 04, 2024 Subjective Pt is a 74 yo mle who with recent dx of anemia secondary to B12 deficiency. He was discharged from this hospital on 07/04, but returned on 07/05 due to presyncope. Pt reports when he returned home he was walking with his walkerand reached forward to close a cabinet when he experienced a sharp rib pain. After that we felt nauseous, weak, and light headed. He called an ambulance to return to the ED. This morning, he is feeling better with significant reduction in rib pain and lightheadedness. He continues with mild nausea and decreased appetite. Review of Systems Review of Systems: As per HPI Physical Exam Physical Exam: The patient is awake, looks very fatigued, normocephalic and atraumatic, lying in bed and in no acute distress. HEENT--PERRL, EOMI, mucous membranes and oropharynx normal. Bruising at left temporal aspect of head, skin tear without bandage Neck--supple. No JVD. No bruits. Heart--normal S1 and S2. No murmurs, rubs or gallops. Lungs--clear bilaterally, no respiratory distress, no accessory muscle use. Abdomen--normal bowel sounds and soft. Nontender. Nondistended, no hernias or masses, no organomegaly. Extremities--no cyanosis or clubbing. No edema. Dermatologic--normal skin turgor, normal color, no rash. Neurologic--cranial nerves II through XII grossly intact. Psychiatric--normal affect. Results & Data Results & Data Vital Signs (Past 12 Hours) Vital Signs Temp Pulse Pulse Resp BP BP Pulse Ox 07/05/24 06:31 66 16 107/67 95 07/05/24 02:26 36.8 C 77 16 126/81 97 07/04/24 23:01 75 16 133/84 96 07/04/24 21:30 85 14 121/85 95 07/04/24 21:00 83 16 128/82 95 07/04/24 20:33 82 16 128/84 95 07/04/24 20:03 80 24 128/101 H 96 07/04/24 19:47 81 07/04/24 19:32 81 20 97 07/04/24 19:32 36.6 C 81 20 131/85 97 O2 Del Method 07/05/24 06:31 Room Air 07/05/24 02:26 Room Air 07/04/24 23:01 Room Air 07/04/24 21:30 Room Air 07/04/24 21:00 Room Air 07/04/24 20:33 Room Air 07/04/24 20:03 Room Air 07/04/24 19:47 07/04/24 19:32 Room Air 07/04/24 19:32 Room Air
[2024-07-05] MEDS: CYANOCOBALAMIN 1000 MCG/ML VIAL IM SCH (08:36)
[2024-07-05] MEDS: FINASTERIDE 5 MG TAB PO SCH (08:36)
[2024-07-05] MEDS: SIMVASTATIN 20 MG TAB PO SCH (08:36)
[2024-07-05 11:30] VITALS: BP 94/55; RESP 20; TEMP 97.9; O2SAT 96
--- NOTE | 2024-07-05 12:42 | Communication Note ---
Date of Service: July 05, 2024 By CMS guidelines, a determination that the admission or continued stay is not medically necessary has been made by a member of the UR committee and a phy sician for this hospital stay, therefore a Code 44 will be completed and the Inpatient admission will be changed to outpatient.
[2024-07-05] MEDS: DICLOFENAC SOD 1% GEL 100 GM TUBE EXT SCH (12:45)
[2024-07-05 13:09] VITALS: PULSE 78
--- NOTE | 2024-07-05 13:27 | Discharge Summary ---
Discharge Summary Date of Service July 05, 2024 Principal Dx & Hospital Course #1 = Principal Diagnosis (1) Near syncope: (2) Weakness: (3) Ambulatory dysfunction: (4) B12 deficiency: (5) Macrocytic anemia: (6) Pancytopenia: Plan went home yesterday (had felt good enough to go, scored 24/24 with PT) but then at home got intense stabbing L sided chest pain and feeling like he was blacking out. because of this came back to hospital - symptoms entirely resolved on exam he has L ribs exhaled and reproducible tenderness L mid ribcage (~ribs 5-7 just medial to midaxillary line) syncope/near syncope - appears to have been due to vasovagal from intercostal spasms and likely shallow breathing from the same -safe/stable for home -taught rib specific stretches -voltaren gel qid -he feels reassured, wants to go home - mostly just didn't know what was causing the symptoms and what to do about it baseline LBBB but showing some changes to more regular sinus at times - asymptomatic and does not appear to carry clinical significance (especially since LBBB is not new) remainder as per yesterday's dc Notes For Next Care Provider Medication Changes From Visit added volateren gel Admission HPI Per Admitting Provider The patient is a 74-year-old male with a past medical history including generalized weakness, ambulatory dysfunction, history of falls, severe B12 deficiency, thrombocytopenia, SIRS, pancytopenia, BPH, hyperlipidemia, and sepsis. He had been found to have a severely low B12 level, which prompted his admission from 07/01-07/04/24. Upon arriving home, he became severely fatigued, lightheaded and dizzy, and nearly passed out as noted above. Due to the recurrence of the symptoms, he returned to the emergency department, underwent routine laboratories not significantly different than upon discharge, and was referred for evaluation for admission because he was not able to go home. The patient understands at this point that he likely should be sent to inpatient rehab, to get stronger, before he tries to go home again. Updated Medication List Medication Instructions Recorded Confirmed Type finasteride 5 mg tablet 5 mg PO DAILY 07/01/24 07/04/24 History lisinopril 10 1 tab PO DAILY 07/01/24 07/01/24 History mg-hydrochlorothiazide 12.5 mg tablet simvastatin 20 mg tablet 20 mg PO DAILY 07/01/24 07/04/24 History cyanocobalamin (vitamin B-12) 1,000 mcg IM DAILY 4 days #4 mL 07/04/24 07/04/24 Rx 1,000 mcg/mL injection solution diclofenac sodium 1 % topical gel 2 g EXT QID #100 grams 07/05/24 Rx (Voltaren Arthritis Pain) Hospital Stay Data Consultations 07/04/24 22:16 ED Decision to Admit Stat Pending Results Patient Have Any Pending Studies at Discharge: No Discharge Instructions Given to Patient (Per Discharging Provider) rib muscle spasm -as we discussed - the intense pain/blacking out you experienced fit really well with what we see when someone has rib muscle spasms - typically the spasm itself hurts a lot (which can lead to blacking out via what's known as a "vasovagal response" and also since it hurts a lot to breathe when rib muscles are in spasm, people usually tend to breathe much more shallow -which also can lead to lightheadedness/blacking out -i'd recommend stretching your ribcage ~5 times a day (reach up and over your head with your right arm, reach it slightly behind your head so it opens up your ribcage some, then take a deep breath and hold it to really stretch things out); if you have a recurrence of the actual spasm, first i would have you sit down (so that if there's a repeat blacking out you're safe) and then i'd have you do the same stretches - remember it being kind of like a foot cramp -- it hurts to pull up your toes to get the cramp to go away but that's what makes it better faster -- a deep breath with rib muscle spasms will hurt worse, but then make the spasms let up more quickly --use voltaren gel (topical diclofenac) 4 times a day across the area where the pain is - this will usually start to kick in over ~2 days or so, but then often helps a good bit. the annoying thing is that you really do need to use it 3-4 times a day for it to be helpful, but when people use it that often, i'd guess about 80% of people get a worthwhile improvement in pain low vitamin B12 -your labwork looks pretty similar to before - which is absolutely expected at this point. continue with the plan to have B12 shots at Dr Howard's office (daily for 3 more days now, then weekly for 4 weeks, then monthly), and Dr Howard will follow your labs periodically to ensure things improve Total Time Total Time Spent Total Time Spent (In Minutes): <30
--- NOTE | 2024-07-05 13:27 | Billing Data ---
Date of Service July 05, 2024 Coding Level of Care Code 28473 IN/OBS DISCH 30 MIN/LESS
--- NOTE | 2024-07-05 23:12 | Electrocardiogram Report ---
Test Reason : Blood Pressure : */* mmHG Vent. Rate : 83 BPM Atrial Rate : 83 BPM P-R Int : 144 ms QRS Dur : 148 ms QT Int : 408 ms P-R-T Axes : 51 -9 72 degrees QTcB Int : 479 ms Normal sinus rhythm Left bundle branch block Abnormal ECG When compared with ECG of 02-Jul-2024 08:47, Premature ventricular complexes are no longer Present Confirmed by Jimbo Huitron ([id number]) on 07/05/2024 11:12:34 PM Referred By: REFERRED SELF Confirmed By: Jimbo Huitron
--- NOTE | 2024-07-06 21:26 | Electrocardiogram Report ---
Test Reason : Blood Pressure : */* mmHG Vent. Rate : 72 BPM Atrial Rate : 72 BPM P-R Int : 148 ms QRS Dur : 114 ms QT Int : 404 ms P-R-T Axes : 28 -32 73 degrees QTcB Int : 442 ms Normal sinus rhythm Left axis deviation Anterior infarct , age undetermined Abnormal ECG When compared with ECG of 04-Jul-2024 19:32, Left bundle branch block is no longer Present Anterior infarct is now Present Confirmed by Jimbo Huitron ([id number]) on 07/06/2024 9:26:28 PM Referred By: REFERRED SELF Confirmed By: Jimbo Huitron
== END 2024-07-05 14:39 | disposition home health service (06) ==
LOC: ED 19:25 → SUATTDRO 22:21 → EDINP 22:21 → INTOOBSV 22:21 → 2W 22:47

== ENCOUNTER 2024-07-13 01:00 | Observation (INO) ==
[2024-07-13] MEDS: HYDROmorphone INJ 0.5 MG/0.5 ML SYR IV STA ×2 (01:38→02:53)
[2024-07-13] MEDS: ONDANSETRON INJ 2 MG/ML 2 ML VIAL IV STA (01:38)
[2024-07-13 01:55] LABS: Basophils # (auto) 0.03 K/uL (0.00-0.20); Basophils % (auto) 0.5 %; Eosinophils # (auto) 0.11 K/uL (0.00-0.50); Eosinophils % (auto) 1.8 %; Hematocrit (blood only) 32.3 % (42.0-52.0); Hemoglobin 10.6 g/dl (14.0-18.0); Immature Granulocytes # (auto) 0.02 K/uL (0.01-0.20); Immature Granulocytes % (auto) 0.3 %; Lymphocytes % (auto) 46.7 %; Mean Corpuscular Hemoglobin 35.3 pg (25.0-34.0); Mean Corpuscular Hgb Conc 32.8 g/dL (32.0-36.0); Mean Corpuscular Volume 107.7 fL (80.0-100.0); Monocytes # (auto) 0.72 K/uL (0.11-0.59); Neutrophils # (auto) 2.31 K/uL (1.40-6.50); Neutrophils % (auto) 38.7 %; Platelet Count 351 K/uL (130-400); RDW Coefficient of Variation 17.2 % (11.5-14.5); RDW Standard Deviation 67.8 fL (36.4-46.3); White Blood Count 5.99 K/ul (4.8-10.8)
[2024-07-13 01:59] LABS: Albumin Globulin Ratio 2.1 (0.9-2); Albumin Level 4.5 gm/dl (3.4-5.0); BUN Creatinine Ratio 15.2 (10-20); Bilirubin,Total 1.5 mg/dl (0.2-1.0); Calcium 9.4 mg/dl (8.6-10.3); Creatinine Clr Calc Pharmacy 68.8 ml/min; Globulin 2.1 gm/dl (2.5-4.0); Potassium 3.8 mmol/L (3.5-5.1); Total Protein 6.6 gm/dl (6.0-8.3)
[2024-07-13 02:04] LABS: Appearance Urine Clear (Clear); Bilirubin Urine Negative (Negative); Blood Urine Negative (Negative); Color Urine Yellow; Glucose Urine UA Negative (Negative); Ketones Urine Trace (Negative); Leukocyte Esterase Urine Negative (Negative); Nitrite Urine Negative (Negative); Protein Urine Negative (Negative); Specific Gravity Urine 1.019 (1.000-1.030); Urobilinogen Urine Negative (Negative); pH Urine 7.5 (4.5-7.5)
[2024-07-13] MEDS: OPTIRAY 320 100ml IV ONE (02:25)
--- NOTE | 2024-07-13 02:43 | Emergency Department Note ---
Impression & Plan Abdominal pain, acute, right upper quadrant, Biliary sludge determined by ultrasound admit to the [facility] ED Provider Note NAME: JOSÉ MELÉNDEZ AGE: 74 SEX: Male INFORMANT: Patient ED PROVIDER(S): Ana Rosa Lopez DO CHIEF COMPLAINT: Epigastric pain PLAN: Disposition: admit to the [facility] MEDICAL DECISION MAKING: this is a 74-year-old male patient who had a sudden onset of epigastric pain approximately 2 hours ago. He denies ever having pain like this in the past. He has had decreased appetite over the past 2 to 3 weeks. he received multiple doses of IV Dilaudid, IV Toradol and IV Zofran for pain and nausea. Laboratory studies revealed no leukocytosis or significant hyperglycemia. H&H were stable. Lipase was negative. Glucose was 113. Urinalysis was negative for signs of infection and revealed trace ketones. CT scan of the abdomen/pelvis showed significantly distended gallbladder but no other acute findings. Patient went for right upper quadrant ultrasound to rule out acute cholecystitis. This revealed significant sludge in the neck of the gallbladder which once again showed a distended gallbladder but no gallbladder wall thickening or pericholecystic fluid. [facility] for [facility] care. Care/management discussed with: manager clinical services and [facility] Triage Nursing notes: reviewed and agree with them. Vital Signs: reviewed and remarkable for Hypertension Differential Diagnosis: pancreatitis, abdominal aortic dissection, cardiac ischemia, ulcerative disease, gastritis Diagnostics, independently interpreted by me: ECG: sinus bradycardia at a rate of [address] segment elevation or signs of ischemia. There is no ectopy. Cardiac Monitoring: Normal sinus rhythm at a rate of 61 Imaging studies: CT scan of the abdomen/pelvis: As per stat rad HPI: 74 year old Male arrives for evaluation of epigastric abdominal pain. patient had a sudden onset of epigastric and right upper quadrant abdominal pain approximately 2 hours ago. He denies any chest pain, shortness of breath, nausea or vomiting. He does describe an associated decrease in appetite. He denies ever having pain like this in the past.. PAST MEDICAL HISTORY: See Below, PAST SURGICAL HISTORY: See Below, SOCIAL HISTORY: See Below, HOME MEDICATIONS: see List ALLERGIES: none VITALS: See Below PHYSICAL EXAMINATION: HEENT: Head - normocephalic and atraumatic. Pupils are equal, round, and reactive to light. Extraocular eye muscles are intact, and sclera are anicteric. Nose - moist nasal mucosa without discharge. Mouth - moist buccal mucosa. Oropharynx is nonerythematous and there is no tonsillar exudate or edema noted. Neck: Supple; no JVD Or nuchal rigidity. Heart: Regular rate and rhythm. There is a normal S1 and S2 with no murmurs, clicks, or gallops appreciated. Lungs: Clear to auscultation bilaterally with no wheezes, rales, or rhonchi. Abdomen: Soft, moderately tender In the right upper quadrant and epigastrium. The rest of the abdomen is nondistended, with good bowel sounds. There are no palpable pulsatile masses or hepatosplenomegaly. There is no guarding, rigidity, or rebound noted. Extremities: No evidence of cyanosis, clubbing, or edema. There are easily palpable peripheral pulses. Skin: Pale,warm and dry with good turgor and no rashes. emergency department course: The patient was evaluated in room C-3. A complete history and physical was performed. An order was placed for continuous cardiac monitoring. The patient was in a normal sinus rhythm at a rate of 61. A twelve-lead EKG was obtained as described above. The patient was given a dose of IV Dilaudid and IV Zofran for his pain. This gave him only minimal relief of his discomfort. He went on to receive another dose of IV Dilaudid and IV Toradol. He went for CT scan of the abdomen/pelvis as described above. He then went on to have an ultrasound of the right upper quadrant which confirmed a distended gallbladder with sludge in the neck of the gallbladder. I discussed the case with the [facility] Hospital[facility] and they will evaluate For further inpatient care. Past Med/Surg History Problem List (Updated 07/13/24 @ 05:53 by Ana Rosa Lopez DO) Biliary sludge determined by ultrasound (Acute) Abdominal pain, acute, right upper quadrant (Acute) Abdominal pain Near syncope Weakness (Acute) Ambulatory dysfunction (Acute) Unwitnessed fall Thrombocytopenia B12 deficiency Thrombocytopenia Hypotension Leukopenia SIRS (systemic inflammatory response syndrome) Macrocytic anemia Sepsis (Acute) Anemia (Acute) Medical History No pertinent family history HLD (hyperlipidemia) HTN (hypertension) Surgical History No pertinent past surgical history Social History Smoking Status: Never smoker Hx Alcohol Use: No Hx Substance Use: No Preferred Language: British Communication Ability: Effective Performance Makeup Artist Required: No Beliefs That Will Affect Care: None Current Living Situation: Alone Feels Safe at Home: Yes Safety Concerns: Feels Safe At This Time Assistive Devices: Glasses Allergies Allergies Allergy/AdvReac Type Severity Reaction Status Date / Time No Known Allergies Unverified 07/01/24 15:03 Home Meds Home Medications Medication Instructions Recorded Confirmed finasteride 5 mg tablet 5 mg PO DAILY 07/01/24 07/13/24 lisinopril 10 1 tab PO DAILY 07/01/24 07/13/24 mg-hydrochlorothiazide 12.5 mg tablet simvastatin 20 mg tablet 20 mg PO DAILY 07/01/24 07/13/24 cyanocobalamin (vitamin B-12) 2,000 mcg PO DAILY 07/13/24 07/13/24 1,000 mcg capsule Previous Rx's Medication Instructions Recorded diclofenac sodium 1 % topical gel 2 g EXT QID #100 grams 07/05/24 (Voltaren Arthritis Pain) Results & Data (ED) Vital Signs Vital Signs - 24 hr 07/13/24 01:04 07/13/24 01:04 07/13/24 01:15 Temperature 36.5 C Temperature Source Oral Pulse Rate 74 61 Pulse Rate from SpO2 Sensor Pulse Rhythm Regular Pulse Strength Normal Respiratory Rate 18 Respiratory Effort / Characteristics Non-Labored Respiratory Depth Normal Respiratory Pattern Regular Blood Pressure 147/90 H Blood Pressure Mean 109 Blood Pressure Position Sitting Pulse Oximetry 100 100 Oxygen Delivery Method Room Air Room Air Sepsis Recent Fever Within 48 Hours No Sepsis New/Unexplained Change in Mental Status No Sepsis Action Taken by Nursing No Action Required 07/13/24 01:32 07/13/24 01:42 07/13/24 02:00 Temperature Temperature Source Pulse Rate 64 55 L Pulse Rate from SpO2 Sensor 59 L 55 L Pulse Rhythm Pulse Strength Respiratory Rate 17 17 Respiratory Effort / Characteristics Respiratory Depth Respiratory Pattern Blood Pressure 140/74 158/92 H Blood Pressure Mean 96 114 Blood Pressure Position Pulse Oximetry 99 96 99 Oxygen Delivery Method Room Air Room Air Room Air Sepsis Recent Fever Within 48 Hours Sepsis New/Unexplained Change in Mental Status Sepsis Action Taken by Nursing 07/13/24 03:00 07/13/24 03:03 07/13/24 03:21 Temperature Temperature Source Pulse Rate 57 L 57 L 60 Pulse Rate from SpO2 Sensor 58 L 60 Pulse Rhythm Pulse Strength Respiratory Rate 14 14 18 Respiratory Effort / Characteristics Respiratory Depth Respiratory Pattern Blood Pressure 158/101 H Blood Pressure Mean 138 Blood Pressure Position Pulse Oximetry 99 99 99 Oxygen Delivery Method Room Air Sepsis Recent Fever Within 48 Hours Sepsis New/Unexplained Change in Mental Status Sepsis Action Taken by Nursing 07/13/24 04:06 Temperature Temperature Source Pulse Rate 66 Pulse Rate from SpO2 Sensor 66 Pulse Rhythm Pulse Strength Respiratory Rate Respiratory Effort / Characteristics Respiratory Depth Respiratory Pattern Blood Pressure Blood Pressure Mean Blood Pressure Position Pulse Oximetry 92 Oxygen Delivery Method Sepsis Recent Fever Within 48 Hours Sepsis New/Unexplained Change in Mental Status Sepsis Action Taken by Nursing Laboratory Data 07/13/24 01:10 07/13/24 01:10 Lab Results 07/13/24 07/13/24 Range/Units 01:10 01:43 WBC 5.99 (4.8-10.8) K/ul RBC 3.00 L (4.70-6.10) M/uL Hgb 10.6 L (14.0-18.0) g/dl Hct 32.3 L (42.0-52.0) % MCV 107.7 H (80.0-100.0) fL MCH 35.3 H (25.0-34.0) pg MCHC 32.8 (32.0-36.0) g/dL RDW Std Deviation 67.8 H (36.4-46.3) fL RDW Coeff of Valerie 17.2 H (11.5-14.5) % Plt Count 351 (130-400) K/uL MPV 10.0 (9.4-12.4) fL Immature Gran % (Auto) 0.3 % Neut % (Auto) 38.7 % Lymph % (Auto) 46.7 % [place] % (Auto) 12.0 % Eos % (Auto) 1.8 % Baso % (Auto) 0.5 % Neut # (Auto) 2.31 (1.40-6.50) K/uL Lymph # (Auto) 2.80 (1.20-3.40) K/uL [place] # (Auto) 0.72 H (0.11-0.59) K/uL Eos # (Auto) 0.11 (0.00-0.50) K/uL Baso # (Auto) 0.03 (0.00-0.20) K/uL Immature Gran # (Auto) 0.02 (0.01-0.20) K/uL Sodium 141 (136-145) mmol/L Potassium 3.8 (3.5-5.1) mmol/L Chloride 106 (98-107) mmol/L Carbon Dioxide 28 (21-32) mmol/L Anion Gap 7 (3-11) BUN 16 (6-23) mg/dl Creatinine 1.05 (0.6-1.4) mg/dl Est Cr Clr Drug Dosing 68.8 ml/min eGFR 74.95 BUN/Creatinine Ratio 15.2 (10-20) Glucose 113 H (70-99(Fasting)) mg/dl Calcium 9.4 (8.6-10.3) mg/dl Total Bilirubin 1.5 H (0.2-1.0) mg/dl AST 15 (13-39) U/L ALT 15 (7-52) U/L Alkaline Phosphatase 41 (34-104) U/L Troponin I High Sens 4.6 (0-20) pg/ml Total Protein 6.6 (6.0-8.3) gm/dl Albumin 4.5 (3.4-5.0) gm/dl Globulin 2.1 L (2.5-4.0) gm/dl Albumin/Globulin Ratio 2.1 H (0.9-2) Lipase 60 (11-82) U/L Urine Color Yellow Urine Appearance Clear (Clear) Urine pH 7.5 (4.5-7.5) Ur Specific [place]man 1.019 (1.000-1.030) Urine Protein Negative (Negative) Urine Glucose (UA) Negative (Negative) Urine Ketones Trace H (Negative) Urine Blood Negative (Negative) Urine Nitrite Negative (Negative) Urine Bilirubin Negative (Negative) Urine Urobilinogen Negative (Negative) Ur Leukocyte Esterase Negative (Negative) Administered Medications Discontinued Medications Hydromorphone HCl (Hydromorphone Inj 0.5 Mg/0.5 Ml Syr) 0.5 mg IV NOW STA Stop: 07/13/24 01:27 Last Admin: 07/13/24 01:38 Dose: 0.5 mg Documented By: MARCUS Hydromorphone HCl (Hydromorphone Inj 0.5 Mg/0.5 Ml Syr) 0.5 mg IV NOW STA Stop: 07/13/24 02:50 Last Admin: 07/13/24 02:53 Dose: 0.5 mg Documented By: MARCUS Ioversol (Optiray 320 100ml) 100 ml IV ONCE ONE Stop: 07/13/24 02:25 Last Admin: 07/13/24 02:25 Dose: 93 ml Documented By: EVITA Ketorolac Tromethamine (Ketorolac Tromethamine 15 Mg/Ml Vial) 15 mg IV NOW STA Stop: 07/13/24 02:50 Last Admin: 07/13/24 02:53 Dose: 15 mg Documented By: MARCUS Ondansetron HCl (Ondansetron Inj 2 Mg/Ml 2 Ml Vial) 4 mg IV NOW STA Stop: 07/13/24 01:27 Last Admin: 07/13/24 01:38 Dose: 4 mg Documented By: MARCUS Imaging Data Radiologist's Impression: Abdomen/Pelvis CT 07/13/24 01:27 Exam(s): CT ABDOMEN + PELVIS With Contrast IV Amt: 93 CC ML OPTIRAY 320 EXAM: CT Abdomen and Pelvis With Intravenous Contrast CLINICAL HISTORY: Reason for exam: eval epigastric pain. TECHNIQUE: Axial computed tomography images of the abdomen and pelvis with intravenous contrast. CTDI is 18.96 mGy and DLP is 989.58 mGy-cm. Automated exposure control was utilized for the study. A dose lowering technique was utilized adhering to the principles of ALARA. CONTRAST: Patient received 93 CC ML OPTIRAY 320 of IV contrast COMPARISON: No relevant prior studies available. FINDINGS: Lung bases: Mild dependent bibasilar subsegmental atelectasis with mildly elevated left hemidiaphragm. ABDOMEN: Liver: Unremarkable. No mass. Gallbladder and bile ducts: Gallbladder is distended and there is very mild gallbladder wall edema. If there is concern for acute cholecystitis, then consider further correlation with ultrasound and/or HIDA scan. No ductal dilation. Pancreas: Unremarkable. No mass. No ductal dilation. Spleen: Unremarkable. No splenomegaly. Adrenals: Unremarkable. No mass. Kidneys and ureters: Unremarkable. No solid mass. No hydronephrosis. Stomach and bowel: Scattered diverticula in the colon. No diverticulitis. No obstruction. PELVIS: Appendix: No findings to suggest acute appendicitis. Bladder: See below. Reproductive: Mildly enlarged and nodular prostate with mild mass- effect on the base of the urinary bladder. Prostate measures 7.4 cm in height, 4.6 cm AP, and 5.0 cm transverse. ABDOMEN and PELVIS: Intraperitoneal space: Unremarkable. No free air. No significant fluid collection. Bones/joints: No acute fracture. No dislocation. Soft tissues: Mild left hip soft tissue stranding may represent mild soft tissue contusion. Vasculature: Unremarkable. No abdominal aortic aneurysm. Lymph nodes: Unremarkable. No enlarged lymph nodes. IMPRESSION: Gallbladder is distended and there is very mild gallbladder wall edema. If there is concern for acute cholecystitis, then consider further correlation with ultrasound and/or HIDA scan. Otherwise, no acute abdominal or pelvic pathology is identified. Electronically signed by: Zoran Baca MD 07/13/24 03:09 AM Gallbladder Ultrasound 07/13/24 03:12 Exam(s): US GALLBLADDER EXAM: US Abdomen Limited, Gallbladder CLINICAL HISTORY: Reason for exam: eval the gallbladder. TECHNIQUE: Real-time ultrasound of the right upper quadrant with image documentation. COMPARISON: Same day CT abdomen and pelvis examination. FINDINGS: Liver: Fatty infiltration of the liver noted. Gallbladder: Gallbladder sludge near the neck demonstrated. No gallstones demonstrated. Gallbladder is moderately distended. No significant gallbladder wall thickening or pericholecystic fluid. Unable to assess for sonographic Mora sign as patient was given pain medications. Common bile duct: Common bile duct measures 3.9 mm in width. No stones. No dilation. Pancreas: Pancreas obscured by overlying bowel gas. IMPRESSION: 1. Pancreas obscured by overlying bowel gas. 2. Gallbladder sludge near the neck demonstrated. No gallstones demonstrated. 3. Gallbladder is moderately distended. No significant gallbladder wall thickening or pericholecystic fluid. No direct sonographic evidence for acute cholecystitis. 4. Fatty infiltration of the liver noted. Electronically signed by: Zoran Baca MD 07/13/24 04:08 AM Discharge Plan Visit Data Chief Complaint: Cardiac Assessment Stated Complaint: UPPER ABDOMINAL, LOWER CHEST PAIN ED Provider: Botti,Ana Rosa A Discharge Problem: Abdominal pain, acute, right upper quadrant, Biliary sludge determined by ultrasound Discharge Instructions Interventions: ED Discharge Assessment Last Done: 07/13/24 05:14
[2024-07-13] MEDS: KETOROLAC TROMETHAMINE 15 MG/ML VIAL IV STA (02:53)
--- NOTE | 2024-07-13 03:10 | CT Scan Report ---
Exam(s): CT ABDOMEN + PELVIS With Contrast IV Amt: 93 CC ML OPTIRAY 320 EXAM: CT Abdomen and Pelvis With Intravenous Contrast CLINICAL HISTORY: Reason for exam: eval epigastric pain. TECHNIQUE: Axial computed tomography images of the abdomen and pelvis with intravenous contrast. CTDI is 18.96 mGy and DLP is 989.58 mGy-cm. Automated exposure control was utilized for the study. A dose lowering technique was utilized adhering to the principles of ALARA. CONTRAST: Patient received 93 CC ML OPTIRAY 320 of IV contrast COMPARISON: No relevant prior studies available. FINDINGS: Lung bases: Mild dependent bibasilar subsegmental atelectasis with mildly elevated left hemidiaphragm. ABDOMEN: Liver: Unremarkable. No mass. Gallbladder and bile ducts: Gallbladder is distended and there is very mild gallbladder wall edema. If there is concern for acute cholecystitis, then consider further correlation with ultrasound and/or HIDA scan. No ductal dilation. Pancreas: Unremarkable. No mass. No ductal dilation. Spleen: Unremarkable. No splenomegaly. Adrenals: Unremarkable. No mass. Kidneys and ureters: Unremarkable. No solid mass. No hydronephrosis. Stomach and bowel: Scattered diverticula in the colon. No diverticulitis. No obstruction. PELVIS: Appendix: No findings to suggest acute appendicitis. Bladder: See below. Reproductive: Mildly enlarged and nodular prostate with mild mass- effect on the base of the urinary bladder. Prostate measures 7.4 cm in height, 4.6 cm AP, and 5.0 cm transverse. ABDOMEN and PELVIS: Intraperitoneal space: Unremarkable. No free air. No significant fluid collection. Bones/joints: No acute fracture. No dislocation. Soft tissues: Mild left hip soft tissue stranding may represent mild soft tissue contusion. Vasculature: Unremarkable. No abdominal aortic aneurysm. Lymph nodes: Unremarkable. No enlarged lymph nodes. IMPRESSION: Gallbladder is distended and there is very mild gallbladder wall edema. If there is concern for acute cholecystitis, then consider further correlation with ultrasound and/or HIDA scan. Otherwise, no acute abdominal or pelvic pathology is identified. Electronically signed by: Zoran Baca MD 07/13/24 03:09 AM
--- NOTE | 2024-07-13 04:09 | Ultrasound Report ---
Exam(s): US GALLBLADDER EXAM: US Abdomen Limited, Gallbladder CLINICAL HISTORY: Reason for exam: eval the gallbladder. TECHNIQUE: Real-time ultrasound of the right upper quadrant with image documentation. COMPARISON: Same day CT abdomen and pelvis examination. FINDINGS: Liver: Fatty infiltration of the liver noted. Gallbladder: Gallbladder sludge near the neck demonstrated. No gallstones demonstrated. Gallbladder is moderately distended. No significant gallbladder wall thickening or pericholecystic fluid. Unable to assess for sonographic Mora sign as patient was given pain medications. Common bile duct: Common bile duct measures 3.9 mm in width. No stones. No dilation. Pancreas: Pancreas obscured by overlying bowel gas. IMPRESSION: 1. Pancreas obscured by overlying bowel gas. 2. Gallbladder sludge near the neck demonstrated. No gallstones demonstrated. 3. Gallbladder is moderately distended. No significant gallbladder wall thickening or pericholecystic fluid. No direct sonographic evidence for acute cholecystitis. 4. Fatty infiltration of the liver noted. Electronically signed by: Zoran Baca MD 07/13/24 04:08 AM
--- NOTE | 2024-07-13 04:35 | History & Physical Report ---
Date of Service July 13, 2024 Assessment & Plan (1) Abdominal pain: Plan: 74yo male presenting with acute epigastric abdominal pain that woke him from sleep. Patient without nausea/vomiting/fever or chills. CT/RUQUS results as above with some concern for distention. No direct evidence for acute cholecystitis -Observation to medical -Maintain NPO -Check HIDA Scan -Dilaudid PRN -Senna 8.6mg po qAM -Protonix 40mg po daily -Zofran PRN Plan Chronic Medical Conditions: Hyperlipidemia -Continue Simvastatin Hypertension -Continue Lisinopril/HCTZ BPH -Continue Finasteride History of Present Illness Chief Complaint: epigastric abdominal pain Primary Care Provider: Mesfin Howard Nkaul Foster is a 74yo male with history of HTN, HLP presenting with epigastric abdominal pain. Patient has had some decreased appetite over the last several weeks. Woke this AM at 23:00 with epigastric abdominal pain. Pain severe, 06/23. Patient called 911 and was brought to the ER. He received 2 doses of dilaudid with improvement in pain. Still with some epiga stric ache otherwise no complaints. ER Course: Dilaudid 0.5mg IV x 2 Zofran 4mg IV Toradol 15mg IV Allergies Allergy/AdvReac Type Severity Reaction Status Date / Time No Known Allergies Unverified 07/01/24 15:03 Home Medications Medication Instructions Recorded Confirmed Type finasteride 5 mg tablet 5 mg PO DAILY 07/01/24 07/13/24 History lisinopril 10 1 tab PO DAILY 07/01/24 07/13/24 History mg-hydrochlorothiazide 12.5 mg tablet simvastatin 20 mg tablet 20 mg PO DAILY 07/01/24 07/13/24 History diclofenac sodium 1 % topical gel 2 g EXT QID #100 grams 07/05/24 07/13/24 Rx (Voltaren Arthritis Pain) cyanocobalamin (vitamin B-12) 2,000 mcg PO DAILY 07/13/24 07/13/24 History 1,000 mcg capsule Past Med/Surg History Problem List (Updated 07/13/24 @ 04:55 by Mariella Wang DO) Abdominal pain Near syncope Weakness (Acute) Ambulatory dysfunction (Acute) Unwitnessed fall Thrombocytopenia B12 deficiency Thrombocytopenia Hypotension Leukopenia SIRS (systemic inflammatory response syndrome) Macrocytic anemia Sepsis (Acute) Anemia (Acute) Medical History No pertinent family history HLD (hyperlipidemia) HTN (hypertension) Surgical History No pertinent past surgical history Social History Smoking Status: Never smoker Hx Alcohol Use: No Hx Substance Use: No Preferred Language: Thai Communication Ability: Effective Bottom Filler Required: No Beliefs That Will Affect Care: None Current Living Situation: Alone Feels Safe at Home: Yes Assistive Devices: Cane and Walker Review of Systems Review of Systems: All systems reviewed & are unremarkable except as noted in HPI & below Physical Exam Physical Exam: General: patient resting comfortably, NAD, non-toxic in appearance, AA&O x 4 Skin: warm, dry, intact, no rashes or lesions HEENT: NC/AT, PERRL, EOMI, anicteric sclera, conjunctiva without injection, external ear normal to inspection and nontender, nares patent, moist mucus membranes, dentition intact, no oropharyngeal lesions, neck supple, trachea midline, no LAD, no thyromegaly, no JVD Heart: +S1/S2, regular, no m/r/g Lungs: equal air entry bilaterally, no rales/rhonchi/wheezes Abd: +BS, soft, NT/ND, no masses/organomegaly/ascites, negative Mora's Ext: warm, 2+ pulses in UE/LE bilaterally, no clubbing/cyanosis or edema Neuro: nonfocal, patient AA&O x 4, speech intact, no facial droop, moving all extremities on command with equal strength 5/5 Results & Data Results & Data Vital Signs (Past 12 Hours) Vital Signs Temp Pulse Resp BP Pulse Ox O2 Del Method 07/13/24 04:06 66 92 07/13/24 03:21 60 18 99 07/13/24 03:03 57 L 14 99 07/13/24 03:00 57 L 14 158/101 H 99 Room Air 07/13/24 02:00 55 L 17 158/92 H 99 Room Air 07/13/24 01:42 64 17 140/74 96 Room Air 07/13/24 01:32 99 Room Air 10/30/24 01:15 61 07/13/24 01:04 100 Room Air 07/13/24 01:04 36.5 C 74 18 147/90 H 100 Room Air Laboratory Results Laboratory Results WBC 5.99 K/ul (4.8-10.8) 07/13/24 01:10 RBC 3.00 M/uL (4.70-6.10) L 07/13/24 01:10 Hgb 10.6 g/dl (14.0-18.0) L 07/13/24 01:10 Hct 32.3 % (42.0-52.0) L 07/13/24 01:10 MCV 107.7 fL (80.0-100.0) H 07/13/24 01:10 MCH 35.3 pg (25.0-34.0) H 07/13/24 01:10 MCHC 32.8 g/dL (32.0-36.0) 07/13/24 01:10 RDW Std Deviation 67.8 fL (36.4-46.3) H 07/13/24 01:10 RDW Coeff of Valerie 17.2 % (11.5-14.5) H 07/13/24 01:10 Plt Count 351 K/uL (130-400) 07/13/24 01:10 MPV 10.0 fL (9.4-12.4) 07/13/24 01:10 Immature Gran % (Auto) 0.3 % 07/13/24 01:10 Neut % (Auto) 38.7 % 07/13/24 01:10 Lymph % (Auto) 46.7 % 07/13/24 01:10 [place] % (Auto) 12.0 % 07/13/24 01:10 Eos % (Auto) 1.8 % 07/13/24 01:10 Baso % (Auto) 0.5 % 07/13/24 01:10 Neut # (Auto) 2.31 K/uL (1.40-6.50) 07/13/24 01:10 Lymph # (Auto) 2.80 K/uL (1.20-3.40) 07/13/24 01:10 Clayton # (Auto) 0.72 K/uL (0.11-0.59) H 07/13/24 01:10 Eos # (Auto) 0.11 K/uL (0.00-0.50) 07/13/24 01:10 Baso # (Auto) 0.03 K/uL (0.00-0.20) 07/13/24 01:10 Immature Gran # (Auto) 0.02 K/uL (0.01-0.20) 07/13/24 01:10 Sodium 141 mmol/L (136-145) 07/13/24 01:10 Potassium 3.8 mmol/L (3.5-5.1) 07/13/24 01:10 Chloride 106 mmol/L (98-107) 07/13/24 01:10 Carbon Dioxide 28 mmol/L (21-32) 07/13/24 01:10 Anion Gap 7 (3-11) 07/13/24 01:10 BUN 16 mg/dl (6-23) 07/13/24 01:10 Creatinine 1.05 mg/dl (0.6-1.4) 07/13/24 01:10 Est Cr Clr Drug Dosing 68.8 ml/min 07/13/24 01:10 eGFR 74.95 07/13/24 01:10 BUN/Creatinine Ratio 15.2 (10-20) 07/13/24 01:10 Glucose 113 mg/dl (70-99(Fasting)) H 07/13/24 01:10 Calcium 9.4 mg/dl (8.6-10.3) 07/13/24 01:10 Total Bilirubin 1.5 mg/dl (0.2-1.0) H 07/13/24 01:10 AST 15 U/L (13-39) 07/13/24 01:10 ALT 15 U/L (7-52) 07/13/24 01:10 Alkaline Phosphatase 41 U/L (34-104) 07/13/24 01:10 Troponin I High Sens 4.6 pg/ml (0-20) 07/13/24 01:10 Total Protein 6.6 gm/dl (6.0-8.3) 07/13/24 01:10 Albumin 4.5 gm/dl (3.4-5.0) 07/13/24 01:10 Globulin 2.1 gm/dl (2.5-4.0) L 07/13/24 01:10 Albumin/Globulin Ratio 2.1 (0.9-2) H 07/13/24 01:10 Lipase 60 U/L (11-82) 07/13/24 01:10 Urine Color Yellow 07/13/24 01:43 Urine Appearance Clear (Clear) 07/13/24 01:43 Urine pH 7.5 (4.5-7.5) 07/13/24 01:43 Ur Specific [place] 1.019 (1.000-1.030) 07/13/24 01:43 Urine Protein Negative (Negative) 07/13/24 01:43 Urine Glucose (UA) Negative (Negative) 07/13/24 01:43 Urine Ketones Trace (Negative) H 07/13/24 01:43 Urine Blood Negative (Negative) 07/13/24 01:43 Urine Nitrite Negative (Negative) 07/13/24 01:43 Urine Bilirubin Negative (Negative) 07/13/24 01:43 Urine Urobilinogen Negative (Negative) 07/13/24 01:43 Ur Leukocyte Esterase Negative (Negative) 07/13/24 01:43 Impressions Abdomen/Pelvis CT 07/13/24 01:27 Exam(s): CT ABDOMEN + PELVIS With Contrast IV Amt: 93 CC ML OPTIRAY 320 EXAM: CT Abdomen and Pelvis With Intravenous Contrast CLINICAL HISTORY: Reason for exam: eval epigastric pain. TECHNIQUE: Axial computed tomography images of the abdomen and pelvis with intravenous contrast. CTDI is 18.96 mGy and DLP is 989.58 mGy-cm. Automated exposure control was utilized for the study. A dose lowering technique was utilized adhering to the principles of ALARA. CONTRAST: Patient received 93 CC ML OPTIRAY 320 of IV contrast COMPARISON: No relevant prior studies available. FINDINGS: Lung bases: Mild dependent bibasilar subsegmental atelectasis with mildly elevated left hemidiaphragm. ABDOMEN: Liver: Unremarkable. No mass. Gallbladder and bile ducts: Gallbladder is distended and there is very mild gallbladder wall edema. If there is concern for acute cholecystitis, then consider further correlation with ultrasound and/or HIDA scan. No ductal dilation. Pancreas: Unremarkable. No mass. No ductal dilation. Spleen: Unremarkable. No splenomegaly. Adrenals: Unremarkable. No mass. Kidneys and ureters: Unremarkable. No solid mass. No hydronephrosis. Stomach and bowel: Scattered diverticula in the colon. No diverticulitis. No obstruction. PELVIS: Appendix: No findings to suggest acute appendicitis. Bladder: See below. Reproductive: Mildly enlarged and nodular prostate with mild mass- effect on the base of the urinary bladder. Prostate measures 7.4 cm in height, 4.6 cm AP, and 5.0 cm transverse. ABDOMEN and PELVIS: Intraperitoneal space: Unremarkable. No free air. No significant fluid collection. Bones/joints: No acute fracture. No dislocation. Soft tissues: Mild left hip soft tissue stranding may represent mild soft tissue contusion. Vasculature: Unremarkable. No abdominal aortic aneurysm. Lymph nodes: Unremarkable. No enlarged lymph nodes. IMPRESSION: Gallbladder is distended and there is very mild gallbladder wall edema. If there is concern for acute cholecystitis, then consider further correlation with ultrasound and/or HIDA scan. Otherwise, no acute abdominal or pelvic pathology is identified. Electronically signed by: Zoran Baca MD 07/13/24 03:09 AM Gallbladder Ultrasound 07/13/24 03:12 Exam(s): US GALLBLADDER EXAM: US Abdomen Limited, Gallbladder CLINICAL HISTORY: Reason for exam: eval the gallbladder. TECHNIQUE: Real-time ultrasound of the right upper quadrant with image documentation. COMPARISON: Same day CT abdomen and pelvis examination. FINDINGS: Liver: Fatty infiltration of the liver noted. Gallbladder: Gallbladder sludge near the neck demonstrated. No gallstones demonstrated. Gallbladder is moderately distended. No significant gallbladder wall thickening or pericholecystic fluid. Unable to assess for sonographic Mora sign as patient was given pain medications. Common bile duct: Common bile duct measures 3.9 mm in width. No stones. No dilation. Pancreas: Pancreas obscured by overlying bowel gas. IMPRESSION: 1. Pancreas obscured by overlying bowel gas. 2. Gallbladder sludge near the neck demonstrated. No gallstones demonstrated. 3. Gallbladder is moderately distended. No significant gallbladder wall thickening or pericholecystic fluid. No direct sonographic evidence for acute cholecystitis. 4. Fatty infiltration of the liver noted. Electronically signed by: Zoran Baca MD 07/13/24 04:08 AM PG Care Time/CCT Total # of Minutes Spent Total Time Spent with Patient: Total time spent is greater than 50% in coordination of care (as documented) at patient's floor/unit and/or counseling patient: Coding Level of Care Code 58647 INT INP/OBS CARE MIN Diagnoses Abdominal pain R10.9
[2024-07-13 04:49] LABS: Troponin I High Sensitivity 4.6 pg/ml (0-20)
[2024-07-13] MEDS ORDERED: ONDANSETRON INJ 2 MG/ML 2 ML VIAL IV PRN (05:14)
[2024-07-13] MEDS ORDERED: HYDROmorphone INJ 0.5 MG/0.5 ML SYR IV PRN ×2 (05:14)
[2024-07-13] MEDS: FINASTERIDE 5 MG TAB PO SCH (10:00)
[2024-07-13] MEDS: PANTOprazole 40 MG TAB PO SCH (10:00)
[2024-07-13] MEDS: SIMVASTATIN 20 MG TAB PO SCH (10:00)
[2024-07-13] MEDS: LISINOPRIL/HCTZ 10/12.5MG TAB PO SCH (10:00)
[2024-07-13] MEDS: SENNA 8.6 MG TAB PO SCH (10:00)
--- NOTE | 2024-07-13 11:58 | Electrocardiogram Report ---
Test Reason : Blood Pressure : */* mmHG Vent. Rate : 56 BPM Atrial Rate : 56 BPM P-R Int : 124 ms QRS Dur : 108 ms QT Int : 432 ms P-R-T Axes : 7 -37 74 degrees QTcB Int : 416 ms Sinus bradycardia Left axis deviation Abnormal ECG When compared with ECG of 05-Jul-2024 02:10, No significant change was found Confirmed by Shaun Brady ([id number]) on 07/13/2024 11:57:43 AM Referred By: REFERRED SELF Confirmed By: Shaun Brady
[2024-07-13] MEDS: MoRPHine SULFATE 2 MG/ML CARP ONE (15:49)
--- NOTE | 2024-07-13 16:42 | Nuclear Medicine Report ---
NUCLEAR MEDICINE HEPATOBILIARY SCAN CLINICAL HISTORY: Right upper quadrant pain. COMPARISON: Right upper quadrant ultrasound and CT of the abdomen and pelvis performed earlier today . TECHNIQUE: 5 mCi of technetium 99m Choletec IV was injected at 2:35 PM on July 13, 2024. Immedia tely following injection, imaging of the abdomen was carried out for 60 minutes in the anterior proje ction. Gallbladder radiotracer was not identified at 60 minutes. Therefore, 2 mg of morphine was admi nistered IV as per protocol. Imaging was carried out for an additional 30 minutes. FINDINGS: Hepatic uptake of radiotracer was prompt and homogeneous. Activity is identified within th e common bile duct and small bowel at 10 minutes. Gallbladder activity was not identified at 60 minut es. 2 mg of morphine was administered IV. No gallbladder activity was noted following an additional 3 0 minutes of imaging. IMPRESSION: Nonvisualization of gallbladder radiotracer following morphine administration. The scint igraphic findings suggest acute cholecystitis. ACT 112: Negative or not required by law. Electronically signed by: Donald Choi M.D. 07/13/2024 4:41 PM
--- NOTE | 2024-07-13 16:53 | Hospitalist Progress Note ---
Date of Service July 13, 2024 Assessment & Plan (1) Epigastric pain: (2) B12 deficiency: (3) HLD (hyperlipidemia): (4) HTN (hypertension): (5) BPH (benign prostatic hyperplasia): (6) Decreased appetite: Plan Epigastric Pain - CT AP:Gallbladder is distended and there is very mild gallbladder wall edema. - RUQ U/S: Gallbladder sludge near the neck demonstrated. No gallstones demonstrated. Gallbladder is moderately distended. No significant gallbladder wall thickening or pericholecystic fluid. No direct sonographic evidence for acute cholecystitis. - HIDA scan: Nonvisualization of gallbladder radiotracer following morphine administration. The scintigraphic findings suggest acute cholecystitis. - Patient off NPO status, will treat with abx (Cipro+Flagyl) for 7 days before appointment with surgery to reassess gallbladder Vitamin B-12 deficiency - Patient positive for intrinsic factor antibody - Will continue to supplement with weekly vitamin B-12 injections Decreased Appetite - Patient reports that this is not due to biliary colic pain - Seen by land development project manager, appreciate recs - Will take patient off NPO status HLD - continue simvastatin HTN - Continue Lisinopril/HCTZ BPH - continue finasteride Admission and Anticipated Discharge Date Admission Date: July 13, 2024 Supervising Physician Co-Signing Physician Notes I personally examined the patient and verified timmons points of history and exam, discussed case, and agree with decision making and plan documented by Dr. Ba. Patient on admission for epigastric pain. Patient appeared comfortable in bed, lungs clear b/l to auscultation, regular rate and rhythm, no abdominal tenderness/guarding/rebound, no acute distress. Agree with advancement of diet. Patient with findings of acute cholecystitis on HIDA scan. Agree with antibiotics and outpatient management if he remains asymptomatic. Subjective Nakul Foster is a 74 y/o M with a past medical history of B-12 deficiency, HTN, HLD arriving in the ED due to increased epigastric abdominal pain. Patient reports that pain woke him up and was a 10/10 in severity at its worst. Patient had two doses of Dilaudid in ED which greatly improved pain. When seen this morning patient reports that his pain completely resolved and was a 0/10. Patient was concerned about a cholecystectomy and was educated on the reasons for an elective cholecystectomy and what to expect post surgery. Patient also endorses a loss of appetite for the past 4 weeks unrelated to his biliary pain. Today the patient denies fever, chills, abdominal pain, nausea, vomiting, chest pain/palpitations/tightness, SOB, cough or wheeze. Physical Exam Physical Exam: General: patient resting comfortably, NAD, non-toxic in appearance, answers questions appropriately. Skin: warm, dry, intact HEENT: NC/AT, anicteric sclera, conjunctiva without injection, moist mucus membranes. Heart: +S1/S2, regular, no m/r/g Lungs: equal air entry bilaterally, no rales/rhonchi/wheezes Abd: +BS, soft, NT/ND Ext: warm, no clubbing/cyanosis or edema, Brian's neg. Neuro: nonfocal, speech intact, no facial droop, moving all extremities. Results & Data Results & Data Vital Signs (Past 12 Hours) Vital Signs Pulse Pulse Resp BP Pulse Ox O2 Del Method O2 Flow Rate 07/13/24 16:31 73 07/13/24 13:44 79 19 106/74 96 Room Air 07/13/24 12:48 84 20 108/71 97 Room Air 07/13/24 10:43 89 20 129/79 95 07/13/24 07:12 83 07/13/24 05:21 66 18 129/79 100 Nasal Cannula 2 07/13/24 05:16 72 Resident Activity Tracking Resident Involvement: Resident Care Provided Care Provided: Adult Hospital Medicine
[2024-07-13] MEDS: metroNIDAZOLE 500 MG TAB PO SCH (21:38)
[2024-07-13] MEDS: CIPROFLOXACIN 500 MG TAB PO SCH (21:49)
[2024-07-13 23:32] VITALS: RESP 16
[2024-07-14 06:00] LABS: Basophils # (auto) 0.05 K/uL (0.00-0.20); Hematocrit (blood only) 30.2 % (42.0-52.0); Hemoglobin 9.7 g/dl (14.0-18.0); Immature Granulocytes # (auto) 0.03 K/uL (0.01-0.20); Immature Granulocytes % (auto) 0.6 %; Lymphocytes # (auto) 1.58 K/uL (1.20-3.40); Lymphocytes % (auto) 31.1 %; Mean Corpuscular Hemoglobin 34.9 pg (25.0-34.0); Mean Corpuscular Hgb Conc 32.1 g/dL (32.0-36.0); Mean Corpuscular Volume 108.6 fL (80.0-100.0); Mean Platelet Volume 10.1 fL (9.4-12.4); Monocytes # (auto) 0.67 K/uL (0.11-0.59); Monocytes % (auto) 13.2 %; Neutrophils # (auto) 2.65 K/uL (1.40-6.50); Neutrophils % (auto) 52.1 %; Platelet Count 277 K/uL (130-400); RDW Coefficient of Variation 16.2 % (11.5-14.5); RDW Standard Deviation 65.6 fL (36.4-46.3); Red Blood Count 2.78 M/uL (4.70-6.10); White Blood Count 5.08 K/ul (4.8-10.8)
[2024-07-14 06:18] LABS: Albumin Level 3.9 gm/dl (3.4-5.0); Bilirubin Direct 0.6 mg/dl (0-0.2); Bilirubin,Total 3.2 mg/dl (0.2-1.0); Creatinine Clr Calc Pharmacy 72.2 ml/min; Potassium 4.8 mmol/L (3.5-5.1); Total Protein 5.8 gm/dl (6.0-8.3)
[2024-07-14 14:26] LABS: Bilirubin Direct 0.4 mg/dl (0-0.2); Bilirubin,Total 2.7 mg/dl (0.2-1.0)
[2024-07-14 14:43] VITALS: TEMP 97.3; O2SAT 97
--- NOTE | 2024-07-14 15:23 | Discharge Summary ---
Date of Service July 14, 2024 Admission HPI Per Admitting Provider Nakul Foster is a 74yo male with history of HTN, HLP presenting with epigastric abdominal pain. Patient has had some decreased appetite over the last several weeks. Woke this AM at 23:00 with epigastric abdominal pain. Pain severe, 06/23. Patient called 911 and was brought to the ER. He received 2 doses of dilaudid with improvement in pain. Still with some epigastric ache otherwise no complaints. ER Course: Dilaudid 0.5mg IV x 2 Zofran 4mg IV Toradol 15mg IV Principal Diagnosis Acute Cholecystitis Discharge Exam General: patient resting comfortably, NAD, non-toxic in appearance, answers questions appropriately. Skin: warm, dry, intact HEENT: NC/AT, anicteric sclera, conjunctiva without injection, moist mucus membranes. Heart: +S1/S2, regular, no m/r/g Lungs: equal air entry bilaterally, no rales/rhonchi/wheezes Abd: +BS, soft, NT/ND Ext: warm, no clubbing/cyanosis or edema, Brian's neg. Neuro: nonfocal, speech intact, no facial droop, moving all extremities. Discharge Data Allergies Allergy/AdvReac Type Severity Reaction Status Date / Time No Known Allergies Unverified 07/01/24 15:03 Consultations 07/13/24 04:16 ED Decision to Admit Stat Ordered Studies 07/13/24 01:27 CT Abd and Pelvis [CT abd pelvis IV con only] Stat 07/13/24 03:12 US gallbladder Stat Laboratory Results WBC 5.08 K/ul (4.8-10.8) 07/14/24 05:38 RBC 2.78 M/uL (4.70-6.10) L 07/14/24 05:38 Hgb 9.7 g/dl (14.0-18.0) L 07/14/24 05:38 Hct 30.2 % (42.0-52.0) L 07/14/24 05:38 MCV 108.6 fL (80.0-100.0) H 07/14/24 05:38 MCH 34.9 pg (25.0-34.0) H 07/14/24 05:38 MCHC 32.1 g/dL (32.0-36.0) 07/14/24 05:38 RDW Std Deviation 65.6 fL (36.4-46.3) H 07/14/24 05:38 RDW Coeff of Valerie 16.2 % (11.5-14.5) H 07/14/24 05:38 Plt Count 277 K/uL (130-400) 07/14/24 05:38 MPV 10.1 fL (9.4-12.4) 07/14/24 05:38 Immature Gran % (Auto) 0.6 % 07/14/24 05:38 Neut % (Auto) 52.1 % 07/14/24 05:38 Lymph % (Auto) 31.1 % 07/14/24 05:38 [place] % (Auto) 13.2 % 07/14/24 05:38 Eos % (Auto) 2.0 % 07/14/24 05:38 Baso % (Auto) 1.0 % 07/14/24 05:38 Neut # (Auto) 2.65 K/uL (1.40-6.50) 07/14/24 05:38 Lymph # (Auto) 1.58 K/uL (1.20-3.40) 07/14/24 05:38 [place] # (Auto) 0.67 K/uL (0.11-0.59) H 07/14/24 05:38 Eos # (Auto) 0.10 K/uL (0.00-0.50) 07/14/24 05:38 Baso # (Auto) 0.05 K/uL (0.00-0.20) 07/14/24 05:38 Immature Gran # (Auto) 0.03 K/uL (0.01-0.20) 07/14/24 05:38 Sodium 142 mmol/L (136-145) 07/14/24 05:38 Potassium 4.8 mmol/L (3.5-5.1) D 07/14/24 05:38 Chloride 106 mmol/L (98-107) 07/14/24 05:38 Carbon Dioxide 32 mmol/L (21-32) 07/14/24 05:38 Anion Gap 4 (3-11) 07/14/24 05:38 BUN 17 mg/dl (6-23) 07/14/24 05:38 Creatinine 1.00 mg/dl (0.6-1.4) 07/14/24 05:38 Est Cr Clr Drug Dosing 72.2 ml/min 07/14/24 05:38 eGFR 79.47 07/14/24 05:38 BUN/Creatinine Ratio 17.0 (10-20) 07/14/24 05:38 Glucose 88 mg/dl (70-99(Fasting)) 07/14/24 05:38 Calcium 9.0 mg/dl (8.6-10.3) 07/14/24 05:38 Total Bilirubin 2.7 mg/dl (0.2-1.0) H 07/14/24 13:58 Direct Bilirubin 0.4 mg/dl (0-0.2) H 07/14/24 13:58 AST 16 U/L (13-39) 07/14/24 05:38 ALT 15 U/L (7-52) 07/14/24 05:38 Alkaline Phosphatase 39 U/L (34-104) 07/14/24 05:38 Troponin I High Sens 4.6 pg/ml (0-20) 07/13/24 01:10 Total Protein 5.8 gm/dl (6.0-8.3) L 07/14/24 05:38 Albumin 3.9 gm/dl (3.4-5.0) 07/14/24 05:38 Globulin 2.1 gm/dl (2.5-4.0) L 07/13/24 01:10 Albumin/Globulin Ratio 2.1 (0.9-2) H 07/13/24 01:10 Lipase 60 U/L (11-82) 07/13/24 01:10 Vitamin B12 1178 pg/ml (180-914) H 07/13/24 01:10 Urine Color Yellow 07/13/24 01:43 Urine Appearance Clear (Clear) 07/13/24 01:43 Urine pH 7.5 (4.5-7.5) 07/13/24 01:43 Ur Specific [place] 1.019 (1.000-1.030) 07/13/24 01:43 Urine Protein Negative (Negative) 07/13/24 01:43 Urine Glucose (UA) Negative (Negative) 07/13/24 01:43 Urine Ketones Trace (Negative) H 07/13/24 01:43 Urine Blood Negative (Negative) 07/13/24 01:43 Urine Nitrite Negative (Negative) 07/13/24 01:43 Urine Bilirubin Negative (Negative) 07/13/24 01:43 Urine Urobilinogen Negative (Negative) 07/13/24 01:43 Ur Leukocyte Esterase Negative (Negative) 07/13/24 01:43 Impressions Abdomen/Pelvis CT 07/13/24 01:27 Exam(s): CT ABDOMEN + PELVIS With Contrast IV Amt: 93 CC ML OPTIRAY 320 EXAM: CT Abdomen and Pelvis With Intravenous Contrast CLINICAL HISTORY: Reason for exam: eval epigastric pain. TECHNIQUE: Axial computed tomography images of the abdomen and pelvis with intravenous contrast. CTDI is 18.96 mGy and DLP is 989.58 mGy-cm. Automated exposure control was utilized for the study. A dose lowering technique was utilized adhering to the principles of ALARA. CONTRAST: Patient received 93 CC ML OPTIRAY 320 of IV contrast COMPARISON: No relevant prior studies available. FINDINGS: Lung bases: Mild dependent bibasilar subsegmental atelectasis with mildly elevated left hemidiaphragm. ABDOMEN: Liver: Unremarkable. No mass. Gallbladder and bile ducts: Gallbladder is distended and there is very mild gallbladder wall edema. If there is concern for acute cholecystitis, then consider further correlation with ultrasound and/or HIDA scan. No ductal dilation. Pancreas: Unremarkable. No mass. No ductal dilation. Spleen: Unremarkable. No splenomegaly. Adrenals: Unremarkable. No mass. Kidneys and ureters: Unremarkable. No solid mass. No hydronephrosis. Stomach and bowel: Scattered diverticula in the colon. No diverticulitis. No obstruction. PELVIS: Appendix: No findings to suggest acute appendicitis. Bladder: See below. Reproductive: Mildly enlarged and nodular prostate with mild mass- effect on the base of the urinary bladder. Prostate measures 7.4 cm in height, 4.6 cm AP, and 5.0 cm transverse. ABDOMEN and PELVIS: Intraperitoneal space: Unremarkable. No free air. No significant fluid collection. Bones/joints: No acute fracture. No dislocation. Soft tissues: Mild left hip soft tissue stranding may represent mild soft tissue contusion. Vasculature: Unremarkable. No abdominal aortic aneurysm. Lymph nodes: Unremarkable. No enlarged lymph nodes. IMPRESSION: Gallbladder is distended and there is very mild gallbladder wall edema. If there is concern for acute cholecystitis, then consider further correlation with ultrasound and/or HIDA scan. Otherwise, no acute abdominal or pelvic pathology is identified. Electronically signed by: Zoran Baca MD 07/13/24 03:09 AM Gallbladder Ultrasound 07/13/24 03:12 Exam(s): US GALLBLADDER EXAM: US Abdomen Limited, Gallbladder CLINICAL HISTORY: Reason for exam: eval the gallbladder. TECHNIQUE: Real-time ultrasound of the right upper quadrant with image documentation. COMPARISON: Same day CT abdomen and pelvis examination. FINDINGS: Liver: Fatty infiltration of the liver noted. Gallbladder: Gallbladder sludge near the neck demonstrated. No gallstones demonstrated. Gallbladder is moderately distended. No significant gallbladder wall thickening or pericholecystic fluid. Unable to assess for sonographic Mora sign as patient was given pain medications. Common bile duct: Common bile duct measures 3.9 mm in width. No stones. No dilation. Pancreas: Pancreas obscured by overlying bowel gas. IMPRESSION: 1. Pancreas obscured by overlying bowel gas. 2. Gallbladder sludge near the neck demonstrated. No gallstones demonstrated. 3. Gallbladder is moderately distended. No significant gallbladder wall thickening or pericholecystic fluid. No direct sonographic evidence for acute cholecystitis. 4. Fatty infiltration of the liver noted. Electronically signed by: Zoran Baca MD 07/13/24 04:08 AM Hepatobiliary Scan Nuclear Medicine 07/13/24 04:35 NUCLEAR MEDICINE HEPATOBILIARY SCAN CLINICAL HISTORY: Right upper quadrant pain. COMPARISON: Right upper quadrant ultrasound and CT of the abdomen and pelvis performed earlier today. TECHNIQUE: 5 mCi of technetium 99m Choletec IV was injected at 2:35 PM on July 13, 2024. Immediately following injection, imaging of the abdomen was carried out for 60 minutes in the anterior projection. Gallbladder radiotracer was not identified at 60 minutes. Therefore, 2 mg of morphine was administered IV as per protocol. Imaging was carried out for an additional 30 minutes. FINDINGS: Hepatic uptake of radiotracer was prompt and homogeneous. Activity is identified within the common bile duct and small bowel at 10 minutes. Gallbladder activity was not identified at 60 minutes. 2 mg of morphine was administered IV. No gallbladder activity was noted following an additional 30 minutes of imaging. IMPRESSION: Nonvisualization of gallbladder radiotracer following morphine administration. The scintigraphic findings suggest acute cholecystitis. ACT 112: Negative or not required by law. Electronically signed by: Donald Choi M.D. 07/13/2024 4:41 PM Hospital Course (1) Epigastric pain: (2) B12 deficiency: (3) HLD (hyperlipidemia): (4) HTN (hypertension): (5) BPH (benign prostatic hyperplasia): (6) Decreased appetite: Plan Epigastric Pain - CT AP:Gallbladder is distended and there is very mild gallbladder wall edema. - RUQ U/S: Gallbladder sludge near the neck demonstrated. No gallstones demonstrated. Gallbladder is moderately distended. No significant gallbladder wall thickening or pericholecystic fluid. No direct sonographic evidence for acute cholecystitis. - HIDA scan: Nonvisualization of gallbladder radiotracer following morphine administration. The scintigraphic findings suggest acute cholecystitis. 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, appreciate recs - Will take patient off NPO status HLD - continue simvastatin HTN - Continue Lisinopril/HCTZ BPH - continue finasteride Total Time Total Time Spent Total Time Spent (In Minutes): 38 min Total Time Includes: Examination of the Patient, Discharge Planning, Medication Reconciliation and Other Discharge Plan Discharge Items Patient Disposition: Home - Self-Care Reason For Visit: RUQ PAIN Discharge Diagnosis: Acute Cholecystitis Activity: Per Instructions section Non-emergency contact: Primary Care Provider and Surgeon Call non-emergency contact if: your symptoms worsen and your pain is not controlled Follow-up/Referrals: Ciro Douglas DO, FACS [Physician] - 07/21/24 10:45 am (General Surgery ) Mesfin Howard [Primary Care Provider] - (Office will reach out tomorrow to schedule. ) Diet: Regular Addtl Attending Provider Instructions: You were admitted to the hospital for epigastric pain. You were evaluated with a CT scan of your abdomen and a abdominal ultrasound that showed some gallbladder distention but without the typical signs of acute cholecystitis or stones in your gall bladder causing infection. After this you underwent a HIDA scan that was positive for acute cholecystitis and because you were asymptomatic fairly quickly after your ED visit, it was determined that antibiotic course of 7 days would be more appropriate in treating your acute cholecystitis with follow-up with surgery in approximately 1 week to check on your gall bladder and determine if there is a need for surgery or if the acute cholecystitis has cleared up. A discharge summary will be sent to your primary care physician to ensure continuity of care. Please bring this discharge summary with you to your next office appointment so that your provider can review it at that time. Follow-up appointments: We have requested a follow-up appointment with your primary care physician within one week of discharge. Please call their office if you do not hear from them. They have notified us that they will try to call you tomorrow to set up your PCP hospital follow-up appointment. You have an appointment with general surgery on 07/21 at [facility]. If you are unable to make this appointment, or have any other questions, their office can be reached at [phone] Keep all your follow-up appointments as already scheduled. If you cannot make an appointment, notify your provider. Medications: Your medication list has been reviewed and reconciled upon discharge to ensure accuracy and continuity of care. An updated list of all your medications is included with your hospital discharge paperwork. Please review this list closely, and make note of any changes. We sent a new medication called Ciprofloxacin to your pharmacy. Take Ciprofloxacin 500 mg 2 times per day approximately 12 hours apart for 6 days. This medication has a low chance to cause muscle aches and pains when combined with your statin therapy, please hold off on taking any simvastatin doses until after you complete this antibiotic regimen. We sent a new medication called Metronidazole to your pharmacy. Take Metronidazole 500 mg 3 times per day approximately 8 hours apart for 6 days If you have any issues filling these prescriptions, please call [phone] and ask to leave a message for Dr. Giacomo Ba. Take your medications as instructed; do not skip a dose of your medicines. Make sure all of your doctors know every medicine you are taking (including [id number] medicines, vitamins, and supplements). Call your primary care provider before taking any new medicines (including [id number] medicines, vitamins, and supplements), because some of these may interact with your current medications, or may make your symptoms worse. Tell your primary care provider if you cannot afford your medications. CONTACT YOUR PRIMARY CARE PROVIDER if you experience any of the following: Difficulty following your treatment plan, or difficulty taking medications CALL 911 OR GO TO THE EMERGENCY DEPARTMENT if you experience any of the following: Sudden, severe abdominal pain or nausea/vomiting Severe chest pain, or chest pain that radiates (moves) to your jaw or arm Sudden, severe shortness of breath or difficulty breathing Thank you for allowing us to participate in your care. Pending Studies at Discharge: No Stand-Alone Forms: [facility], Smoking Cessation Medications and DC Order Prescriptions: New ciprofloxacin HCl 500 mg tablet 500 mg PO Q12H Qty: 13 0RF Rx Instructions: Please take 1 pill tonight, and then resume taking 1 pill every 12 hours or twice per day for the following 6 days. metronidazole 500 mg tablet 500 mg PO TID Qty: 19 0RF Rx Instructions: Please take 1 dose of metronidazole (500mg) tonight, and then please take 3 doses per day approximately 8 hours apart for the next 6 days. mecobalamin (vitamin B12) 10,000 mcg recon soln 1,000 mcg subcut .weekly Qty: 4 0RF Rx Instructions: Sending 4 subcutaneous B12 injections. Please take one per week approximately at the same time each week. This is a 1 month supply. Please follow up with pcp for further doses. Continued simvastatin 20 mg tablet 20 mg PO DAILY lisinopril-hydrochlorothiazide 10-12.5 mg tablet 1 tab PO DAILY Hold Instructions: F/u with primary care doctor for blood pressure check. Restart if elevated. finasteride 5 mg tablet 5 mg PO DAILY diclofenac sodium [Voltaren Arthritis Pain] 1 % Gel 2 g EXT QID Qty: 100 0RF cyanocobalamin (vitamin B-12) 1,000 mcg capsule 2,000 mcg PO DAILY Discharge Orders: Discharge Order (Routine); Ordered 07/14/24 Ordered By: Giacomo Ba Admission Data Admit Date/Time: 07/13/24 04:35 Attending Provider: Bettina Calles Admit Provider: Mariella Wang Primary Care Provider: Mesfin Howard Other Providers: Mariella Wang Other Interventions: Discharge Summary Assessment (RN) Last Done: 07/14/24 16:22 Supervising Physician Co-Signing Physician Notes I personally examined the patient and verified timmons points of history and exam, discussed case, and agree with decision making and plan documented by Dr. Ba. Patient on admission for epigastric pain. Patient appeared comfortable in bed, lungs clear b/l to auscultation, regular rate and rhythm, no abdominal tenderness/guarding/rebound, no acute distress. Patient was able to advance diet without symptoms. Will continue cipro and metronidazole for cholecystitis noted HIDA. Patient scheduled with general surgery next week for outpatient evaluation. B12 injections were ordered for patient for his known deficiency, advised patient this to be managed by his family physician going forward. Jennifer jaylen was seen by nutrition while inpatient who reviewed dietary approach and gave recommendations for nutritional support. Reviewed reasons to seek medical attention with patient, he is understanding. Resident Activity Tracking Resident Involvement: Resident Care Provided Care Provided: Adult Hospital Medicine
[2024-07-14 16:23] VITALS: BP 111/69; PULSE 66
== END 2024-07-14 16:58 | disposition home health service (06) ==
LOC: ED 01:00 → EDINP 01:00 → SUATTDRO 04:35 → 3N 05:14

== ENCOUNTER 2024-07-25 07:23 | Inpatient (IN) ==
[2024-07-25 08:15] LABS: Basophils # (auto) 0.08 K/uL (0.00-0.20); Basophils % (auto) 0.4 %; Eosinophils # (auto) 0.01 K/uL (0.00-0.50); Eosinophils % (auto) 0.1 %; Hematocrit (blood only) 34.8 % (42.0-52.0); Hemoglobin 11.7 g/dl (14.0-18.0); Immature Granulocytes # (auto) 0.13 K/uL (0.01-0.20); Immature Granulocytes % (auto) 0.7 %; Lymphocytes # (auto) 1.42 K/uL (1.20-3.40); Lymphocytes % (auto) 7.6 %; Mean Corpuscular Hemoglobin 33.5 pg (25.0-34.0); Mean Corpuscular Hgb Conc 33.6 g/dL (32.0-36.0); Mean Corpuscular Volume 99.7 fL (80.0-100.0); Mean Platelet Volume 10.1 fL (9.4-12.4); Monocytes # (auto) 1.51 K/uL (0.11-0.59); Monocytes % (auto) 8.1 %; Neutrophils # (auto) 15.54 K/uL (1.40-6.50); Neutrophils % (auto) 83.1 %; Platelet Count 208 K/uL (130-400); RDW Coefficient of Variation 14.3 % (11.5-14.5); RDW Standard Deviation 50.6 fL (36.4-46.3); Red Blood Count 3.49 M/uL (4.70-6.10); White Blood Count 18.69 K/ul (4.8-10.8)
[2024-07-25 08:27] LABS: Albumin Level 4.5 gm/dl (3.4-5.0); BUN Creatinine Ratio 13.7 (10-20); Bilirubin,Total 2.6 mg/dl (0.2-1.0); Calcium 9.6 mg/dl (8.6-10.3); Creatinine Clr Calc Pharmacy 69.2 ml/min; Globulin 2.2 gm/dl (2.5-4.0); Potassium 3.1 mmol/L (3.5-5.1); Total Protein 6.7 gm/dl (6.0-8.3)
--- NOTE | 2024-07-25 09:08 | Emergency Department Note ---
Impression & Plan Gastroenteritis, Hypotension, Dehydration ED Provider Note NAME: JOSÉ MELÉNDEZ AGE: 74 SEX: M : 1950 ARRIVES VIA: Walk-In INFORMANT: Patient, ED PROVIDER(S): Lobito Martin MD CHIEF COMPLAINT: Dizziness, weakness HPI: This 74-year-old male presented for dizziness/weakness. Patient states that over the past 1 to 2 days he has noticed increasing episodes of diarrhea. He notes that when he does change positions he is significantly dizzy and weak. He is having difficulty ambulation specifically despite using his walker. He notes that he feels very dry in his mouth at this time. He has not syncopized or passed out today. He notes that for the past 2+ weeks he has had numbness in his fingertips. No chest pain, shortness of breath. ROS: See above HPI for pertinent positives & negatives. A total of 10 systems reviewed and were otherwise negative. PAST MEDICAL HISTORY: See Below PAST SURGICAL HISTORY: See Below FAMILY HISTORY: See Below SOCIAL HISTORY: See Below HOME MEDICATIONS: See Below ALLERGIES: See Below VITALS: See Below PHYSICAL EXAMINATION: General: resting comfortably in no acute distress Head: Normocephalic and atraumatic Eyes: Normal inspection, extraocular muscles intact Ear, nose, throat: Normal external exam Neck: Normal range of motion Respiratory: lungs clear to auscultation bilaterally Cardiovascular: Regular rate/rhythm, no murmur GI: soft, nontender, no guarding or rebound Extremities: nontender, moves all extremities Neuro: The patient awake and alert, appropriately conversive, no focal deficits, symmetric faces Skin: Warm, dry, and intact MDM: This is a 71-year-old male presenting for dizziness/weakness. Patient overall appears clinically dry. He is hypotensive here with 84/55. Will give IV fluids at this time. Source likely related to his diarrhea and fluid loss. -Bloodwork is reviewed showing a leukocytosis to 18.69. Otherwise potassium is 3.1. Will give oral repletion here. Bilirubin stable/downtrending at 2.6. -After 1 L normal saline, patient does have some improvement in blood pressure to the 100 systolic. He still feels fairly unsteady on his feet and he feels overall weak. He has been having trouble using his walker. Due to the patient would benefit from further inpatient admission, fluid resuscitation patient likely gastroenteritis and physical therapy consultation. Differential diagnosis: Gastroenteritis, dehydration, hypovolemia, sepsis ER treatment provided: See below Diagnostics interpreted by me: ECG: ECG independently interpreted by me with normal sinus rhythm, rate of 84, normal axis, normal CO, left bundle branch block, normal QTc, no ST segment elevations consistent with STEMI criteria Cardiac Monitoring: An order was placed for continuous cardiac monitoring. The monitor shows a rate of 77 with sinus rhythm. Laboratory studies: As stated above and show below. Imaging studies: See below. Past Med/Surg History Problem List (Updated 07/25/24 @ 14:17 by Lobito Martin MD) Dehydration (Acute) Hypotension (Acute) Gastroenteritis (Acute) Leukocytosis Hypokalemia Dizziness Cholecystitis Decreased appetite BPH (benign prostatic hyperplasia) Epigastric pain Biliary sludge determined by ultrasound (Acute) Abdominal pain, acute, right upper quadrant (Acute) Abdominal pain Near syncope Weakness (Acute) Ambulatory dysfunction (Acute) Unwitnessed fall Thrombocytopenia B12 deficiency Thrombocytopenia Hypotension Leukopenia SIRS (systemic inflammatory response syndrome) Macrocytic anemia Sepsis (Acute) Anemia (Acute) Medical History No pertinent family history HLD (hyperlipidemia) HTN (hypertension) Surgical History No pertinent past surgical history Family History Mother Heart disease Diabetes Social History Smoking Status: Never smoker Hx Alcohol Use: No Hx Substance Use: No Preferred Language: Kosovan Communication Ability: Effective Picker Required: No Beliefs That Will Affect Care: None marital status: Single Current Living Situation: Alone current occupational status: retired How many Children do You have: 0 Feels Safe at Home: Yes Diet: regular during the past year weight has: decreased > 10 lbs Assistive Devices: Cane and Walker Allergies Allergies Allergy/AdvReac Type Severity Reaction Status Date / Time No Known Allergies Allergy Verified 07/21/24 10:49 Home Meds Home Medications Medication Instructions Recorded Confirmed finasteride 5 mg tablet 5 mg PO DAILY 07/01/24 07/25/24 lisinopril 10 1 tab PO DAILY 07/01/24 07/25/24 mg-hydrochlorothiazide 12.5 mg tablet simvastatin 20 mg tablet 20 mg PO DAILY 07/01/24 07/25/24 cyanocobalamin (vitamin B-12) 2,000 mcg PO DAILY 07/13/24 07/25/24 1,000 mcg capsule Previous Rx's Medication Instructions Recorded diclofenac sodium 1 % topical gel 2 g EXT QID #100 grams 07/05/24 (Voltaren Arthritis Pain) Results & Data (ED) Vital Signs Vital Signs - 24 hr 07/25/24 07:34 07/25/24 07:48 07/25/24 07:54 Temperature 36.8 C Temperature Source Temporal Artery Scan Pulse Rate 93 H 86 Pulse Rate [Apical] Pulse Rhythm Regular Pulse Rhythm [Apical] Pulse Strength Normal Pulse Strength [Apical] Respiratory Rate 20 Respiratory Effort / Characteristics Non-Labored Spontaneous Respiratory Depth Normal Respiratory Pattern Regular Blood Pressure 84/55 L Blood Pressure [Right Arm] Blood Pressure Mean 64 Blood Pressure Mean [Right Arm] Blood Pressure Position Sitting Blood Pressure Position [Right Arm] Pulse Oximetry 98 97 Oxygen Delivery Method Room Air Room Air Sepsis Recent Fever Within 48 Hours No Sepsis New/Unexplained Change in Mental Status No Sepsis Action Taken by Nursing No Action Required 07/25/24 07:55 07/25/24 09:41 07/25/24 11:11 Temperature Temperature Source Pulse Rate Pulse Rate [Apical] 86 88 76 Pulse Rhythm Pulse Rhythm [Apical] Regular Regular Pulse Strength Pulse Strength [Apical] Normal Normal Respiratory Rate 20 16 16 Respiratory Effort / Characteristics Non-Labored Non-Labored Non-Labored Respiratory Depth Normal Normal Normal Respiratory Pattern Regular Blood Pressure Blood Pressure [Right Arm] 87/70 L 105/71 117/75 Blood Pressure Mean Blood Pressure Mean [Right Arm] 75 82 89 Blood Pressure Position Blood Pressure Position [Right Arm] Sitting Pulse Oximetry 96 96 100 Oxygen Delivery Method Room Air Room Air Room Air Sepsis Recent Fever Within 48 Hours Sepsis New/Unexplained Change in Mental Status Sepsis Action Taken by Nursing 07/25/24 11:37 07/25/24 11:49 07/25/24 13:05 Temperature Temperature Source Pulse Rate 77 Pulse Rate [Apical] 98 H 68 Pulse Rhythm Pulse Rhythm [Apical] Regular Pulse Strength Pulse Strength [Apical] Normal Respiratory Rate 20 16 Respiratory Effort / Characteristics Non-Labored Non-Labored Respiratory Depth Normal Normal Respiratory Pattern Regular Blood Pressure Blood Pressure [Right Arm] 113/72 130/64 Blood Pressure Mean Blood Pressure Mean [Right Arm] 85 86 Blood Pressure Position Blood Pressure Position [Right Arm] Pulse Oximetry 98 98 Oxygen Delivery Method Room Air Room Air Sepsis Recent Fever Within 48 Hours Sepsis New/Unexplained Change in Mental Status Sepsis Action Taken by Nursing 07/25/24 14:07 Temperature Temperature Source Pulse Rate 77 Pulse Rate [Apical] Pulse Rhythm Pulse Rhythm [Apical] Pulse Strength Pulse Strength [Apical] Respiratory Rate 20 Respiratory Effort / Characteristics Respiratory Depth Respiratory Pattern Blood Pressure 118/77 Blood Pressure [Right Arm] Blood Pressure Mean Blood Pressure Mean [Right Arm] Blood Pressure Position Blood Pressure Position [Right Arm] Pulse Oximetry 98 Oxygen Delivery Method Room Air Sepsis Recent Fever Within 48 Hours Sepsis New/Unexplained Change in Mental Status Sepsis Action Taken by Nursing Laboratory Data 07/25/24 07:51 07/25/24 07:51 Lab Results 07/25/24 07/25/24 Range/Units 07:51 09:48 WBC 18.69 H (4.8-10.8) K/ul RBC 3.49 L (4.70-6.10) M/uL Hgb 11.7 L (14.0-18.0) g/dl Hct 34.8 L (42.0-52.0) % MCV 99.7 (80.0-100.0) fL MCH 33.5 (25.0-34.0) pg MCHC 33.6 (32.0-36.0) g/dL RDW Std Deviation 50.6 H (36.4-46.3) fL RDW Coeff of Valerie 14.3 (11.5-14.5) % Plt Count 208 (130-400) K/uL MPV 10.1 (9.4-12.4) fL Immature Gran % (Auto) 0.7 % Neut % (Auto) 83.1 % Lymph % (Auto) 7.6 % [place] % (Auto) 8.1 % Eos % (Auto) 0.1 % Baso % (Auto) 0.4 % Neut # (Auto) 15.54 H (1.40-6.50) K/uL Lymph # (Auto) 1.42 (1.20-3.40) K/uL [place] # (Auto) 1.51 H (0.11-0.59) K/uL Eos # (Auto) 0.01 (0.00-0.50) K/uL Baso # (Auto) 0.08 (0.00-0.20) K/uL Immature Gran # (Auto) 0.13 (0.01-0.20) K/uL Sodium 139 (136-145) mmol/L Potassium 3.1 L (3.5-5.1) mmol/L Chloride 101 (98-107) mmol/L Carbon Dioxide 28 (21-32) mmol/L Anion Gap 10 (3-11) BUN 14 (6-23) mg/dl Creatinine 1.02 (0.6-1.4) mg/dl Est Cr Clr Drug Dosing 69.2 ml/min eGFR 77.60 BUN/Creatinine Ratio 13.7 (10-20) Glucose 112 H (70-99(Fasting)) mg/dl Calcium 9.6 (8.6-10.3) mg/dl Magnesium 2.0 (1.7-2.4) mg/dl Total Bilirubin 2.6 H (0.2-1.0) mg/dl AST 18 (13-39) U/L ALT 19 (7-52) U/L Alkaline Phosphatase 45 (34-104) U/L Total Protein 6.7 (6.0-8.3) gm/dl Albumin 4.5 (3.4-5.0) gm/dl Globulin 2.2 L (2.5-4.0) gm/dl Albumin/Globulin Ratio 2.0 (0.9-2) Urine Color Yellow Urine Appearance Clear (Clear) Urine pH 6.5 (4.5-7.5) Ur Specific [place] 1.010 (1.000-1.030) Urine Protein Negative (Negative) Urine Glucose (UA) Negative (Negative) Urine Ketones Negative (Negative) Urine Blood Negative (Negative) Urine Nitrite Negative (Negative) Urine Bilirubin Negative (Negative) Urine Urobilinogen Negative (Negative) Ur Leukocyte Esterase Negative (Negative) Administered Medications Discontinued Medications Ioversol (Optiray 320 100ml) 94 ml IV ONCE ONE Stop: 07/25/24 13:00 Last Admin: 07/25/24 13:00 Dose: 94 ml Documented By: KSF Potassium Chloride (Potassium Chloride Crtab 20 Meq Tabcr) 40 meq PO NOW STA Stop: 07/25/24 09:09 Last Admin: 07/25/24 09:13 Dose: 40 meq Documented By: [employer] Imaging Data Radiologist's Impression: Chest X-Ray 07/25/24 08:51 XR chest 1V portable CLINICAL HISTORY: Shortness of breath. Weakness. COMPARISON STUDY: Chest radiograph July 04, 2024. FINDINGS: Mild elevation of the left hemidiaphragm is unchanged. There is no consolidation. Minimal left basilar opacity favors atelectasis. There is no pneumothorax or pleural effusion. Mild cardiomegaly is unchanged. Mediastinal contours are normal. There is no evidence for pulmonary edema. IMPRESSION: No acute cardiopulmonary findings. No change in appearance of the chest. ACT 112: Negative or not required by law. Electronically signed by: Donald Choi M.D. 07/25/2024 9:15 AM Abdomen/Pelvis CT 07/25/24 10:[address] WITH IV AND ORAL CONTRAST CT DOSE: 1079.3 mGy.cm HISTORY: Acute generalized abdominal pain Diarrhea, Leukocytosis TECHNIQUE: Multiaxial CT images of the abdomen and pelvis were performed following the IV administration of 94 cc of Optiray and oral contrast. A dose lowering technique was utilized adhering to the principles of ALARA. COMPARISON STUDY: CT abdomen and pelvis 07/13/2024, hepatobiliary scan 07/13/2024. FINDINGS: Study is mildly degraded by respiratory motion. Subcentimeter subpleural nodular foci of the lung bases are favored to be benign. Mild subsegmental bibasilar atelectasis. No pneumoperitoneum. Spleen measures 13.6 cm in length. Unremarkable pancreas and adrenal glands. Gallbladder wall thickening is noted without significant gallbladder distention or pericholecystic edema. Unremarkable liver. Patent portal vein. Unremarkable kidneys without hydronephrosis. Prostatomegaly. Distended urinary bladder with wall thickening. Atherosclerosis of the aorta without aneurysm. No lymphadenopathy. No bowel obstruction. Mild nonspecific distal esophageal wall thickening. Duodenal diverticulum. Colonic diverticulosis. Circumferential wall thickening is noted throughout the rectum and sigmoid also involving the distal descending colon. Adjacent inflammatory stranding with trace ascites. Normal appendix. No acute fracture. Subcutaneous edema lateral to the left greater trochanter measures up to approximately 6 cm in length. Findings are similar to prior and may represent bursitis versus contusion. IMPRESSION: 1. Findings compatible with a nonspecific proctocolitis extending from the distal descending to the rectum. 2. No bowel obstruction or pneumoperitoneum. 3. Colonic diverticulosis. 4. Prostamegaly with evidence of chronic outlet obstruction. 5. There is mild nonspecific wall thickening of the gallbladder without significant gallbladder distention or pericholecystic inflammation to suggest acute cholecystitis. 6. Additional findings as above. ACT 112: Negative or not required by law. The above report was generated using voice recognition software. It may contain grammatical, syntax or spelling errors. Electronically signed by: Raymond Hinton M.D. 07/25/2024 1:23 PM Discharge Plan Visit Data Chief Complaint: Neuro Symptoms/Deficit Stated Complaint: MOBILITY ISSUES,UNSTABLE,FINGERTIPS NUMBS ED Provider: Lobito Martin Discharge Problem: Gastroenteritis, Hypotension, Dehydration Patient Disposition: Admitted As Inpatient Discharge Instructions Interventions: ED Discharge Assessment Last Done: 07/25/24 14:07 Forms Stand Alone Forms: My [employer] Prescriptions Prescriptions: No Action simvastatin 20 mg tablet 20 mg PO DAILY lisinopril-hydrochlorothiazide 10-12.5 mg tablet 1 tab PO DAILY Hold Instructions: F/u with primary care doctor for blood pressure check. Restart if elevated. finasteride 5 mg tablet 5 mg PO DAILY diclofenac sodium [Voltaren Arthritis Pain] 1 % Gel 2 g EXT QID Qty: 100 0RF cyanocobalamin (vitamin B-12) 1,000 mcg capsule 2,000 mcg PO DAILY Referrals Referrals: Mesfin Howard [Primary Care Provider] -
[2024-07-25] MEDS: POTASSIUM CHLORIDE CRTAB 20 MEQ TABCR PO STA (09:13)
--- NOTE | 2024-07-25 09:17 | XRay Report ---
XR chest 1V portable CLINICAL HISTORY: Shortness of breath. Weakness. COMPARISON STUDY: Chest radiograph July 04, 2024. FINDINGS: Mild elevation of the left hemidiaphragm is unchanged. There is no consolidation. Minimal l eft basilar opacity favors atelectasis. There is no pneumothorax or pleural effusion. Mild cardiomega ly is unchanged. Mediastinal contours are normal. There is no evidence for pulmonary edema. IMPRESSION: No acute cardiopulmonary findings. No change in appearance of the chest. ACT 112: Negative or not required by law. Electronically signed by: Donald Choi M.D. 07/25/2024 9:15 AM
[2024-07-25 10:08] LABS: Appearance Urine Clear (Clear); Bilirubin Urine Negative (Negative); Blood Urine Negative (Negative); Color Urine Yellow; Glucose Urine UA Negative (Negative); Ketones Urine Negative (Negative); Leukocyte Esterase Urine Negative (Negative); Nitrite Urine Negative (Negative); Protein Urine Negative (Negative); Urobilinogen Urine Negative (Negative); pH Urine 6.5 (4.5-7.5)
--- NOTE | 2024-07-25 10:49 | History & Physical Report ---
Date of Service July 25, 2024 Assessment & Plan (1) Dizziness: Plan: Dizziness/weakness x 1 to 2 days, most notable with changing of position, associated diarrhea x 2 weeks; uses walker to ambulate normally. Was dc home on Cipro and Flagyl on 07/14, completed course - Admit to med telemetry - Currently stable and nontoxic-appearing; normotensive and without fever - Appears dry on exam- oral cavity, no edema to BLE; hypotensive on arrival but now normotensive; No IVF fluids provided in ED- promote oral rehydration - PT/OT consults will be needed- Utilizing walker x 2 months per patient - CBC- WBC 18.69, neutrophil 15.54; H&H 11.7/34.8 - CMP- K 3.1, bilirubin 2.6, globulin 2.2 - Magnesium pending - CTAP pending - Stool Biofire pending - Cdiff stool studies pending - 07/13- Patient had hepatobiliary scan as outpatient revealing acute cholecystitis at that time - 07/21 outpatient appointment with general surgery with Dr. Mesfin Howard- Was noted that patient was interested in robotic assisted laparoscopic cholecystectomy and this was to be scheduled 2/2 cholecystitis (2) Leukocytosis: Plan: WBC 18.69, neutrophils 15.54 - No recent F/C, no abdominal pain, no additional illnesses noted - Diarrhea x 2 weeks occuring with urination - UA WNL - CXR w/o acute cardiopulmonary findings - Recently completed course of cipro + flagy - Pending CTAP (3) Hypokalemia: Plan: Likely secondary to GI losses- diarrhea x 2 weeks - K 3.1 at admission - Mg pending - KCl 40 mEq provided in ED - Recheck BMP am (4) B12 deficiency: Plan: Most recent hospitalization for such 07/04 to 07/05/2024 - Ongoing pins and needle sensation in bilateral fingertips - No recent falls, no neurologic symptoms otherwise - Vitamin B12 2000 mcg daily at home; hold until B12 levels return - Vitamin B12 on 07/13 was 1178 - Positive for IF antibody - Pending vitamin B12 levels (5) BPH (benign prostatic hyperplasia): Plan: No LUTS currently - Finasteride 5 mg daily; ? leading to dizziness (started 09/2023) - UA without signs of infection - Bladder scan prn (6) Thrombocytopenia: Plan: Platelets at admission 208 - Denies overt signs of bleeding - CBC a.m. Plan HLD- simvastatin 20 mg daily HTN- lisinopril-hydrochlorothiazide daily; hold until repeat K Dispo: Admit VTE prophylaxis: SCDs Code: Full Admission and Anticipated Discharge Date Admission Date: 07/25/2024 History of Present Illness Chief Complaint: Dizziness/weakness Primary Care Provider: Mesfin Howard Patient is a 74-year-old male presenting for dizziness/weakness x 1-2 days. ED course: CBC- WBC 18.69, neutrophils 15.54, H&H 11.7/34.8; CMP- K 3.1, bilirubin 2.6, globulin 2.2; UA WNL; CXR without acute findings; EKG appearing NSR around 80 bpm. Provided with KCl 40 mEq for hypokalemia while in ED. Patient is a 74-year-old male with PMHx of B12 deficiency, BPH, biliary sludge by ultrasound, thrombocytopenia and h/o cholecystitis presenting for dizziness/weakness x 1 to 2 days with associated diarrhea x 2 weeks. States that approximately 2 weeks ago he noticed that every time he would urinate, he would have unexpected bowel movements that were loose in nature. Reports this occurs every "few hours" but is unable to determine the exact amount of times. States that the dizziness/weakness started approximate 1 to 2 days ago, and he noticed that it would occur mainly whenever he was changing positions and is throughout his entire body. Patient does use a walker for ambulation, but still felt unsteady when ambulating. Also has had ongoing dry mouth, stating that he has to have water even throughout the night because he feels as though his mouth is so dry. New onset of pins and needle feeling in his bilateral hands. Also reports that within the past week, he is dropped approximately 5 pounds, and has noted anorexia for an unknown duration. Patient states that he will eat 1-2 bites of his meal, then feel full and not be able to finish. Currently denying abdominal pain or nausea/vomiting. Denies chest pain, shortness of breath, he adache, fever/chills, constipation, syncopal episodes, or night sweats. Multiple hospital admissions with most recent/notable being 07/04-07/05 in which patient was diagnosed with severe vitamin B12 deficiency. Readmitted 07/13- 07/14 for abdominal pain; diagnosed with acute cholecystitis. Managed on Cipro and Flagyl x 7 days and completed course, then followed with general surgery 07/21 for outpatient appointment. Please see Dr. Venegas's attestation for adjustments/additions to treatment plan. Allergies Allergy/AdvReac Type Severity Reaction Status Date / Time No Known Allergies Allergy Verified 07/21/24 10:49 Home Medications Medication Instructions Recorded Confirmed Type finasteride 5 mg tablet 5 mg PO DAILY 07/01/24 07/25/24 History lisinopril 10 1 tab PO DAILY 07/01/24 07/25/24 History mg-hydrochlorothiazide 12.5 mg tablet simvastatin 20 mg tablet 20 mg PO DAILY 07/01/24 07/25/24 History diclofenac sodium 1 % topical gel 2 g EXT QID #100 grams 07/05/24 07/25/24 Rx (Voltaren Arthritis Pain) cyanocobalamin (vitamin B-12) 2,000 mcg PO DAILY 07/13/24 07/25/24 History 1,000 mcg capsule Past Med/Surg History Problem List (Updated 07/25/24 @ 14:17 by Lobito Martin MD) Dehydration (Acute) Hypotension (Acute) Gastroenteritis (Acute) Leukocytosis Hypokalemia Dizziness Cholecystitis Decreased appetite BPH (benign prostatic hyperplasia) Epigastric pain Biliary sludge determined by ultrasound (Acute) Abdominal pain, acute, right upper quadrant (Acute) Abdominal pain Near syncope Weakness (Acute) Ambulatory dysfunction (Acute) Unwitnessed fall Thrombocytopenia B12 deficiency Thrombocytopenia Hypotension Leukopenia SIRS (systemic inflammatory response syndrome) Macrocytic anemia Sepsis (Acute) Anemia (Acute) Medical History No pertinent family history HLD (hyperlipidemia) HTN (hypertension) Surgical History No pertinent past surgical history Family History Mother Heart disease Diabetes Social History Smoking Status: Never smoker Hx Alcohol Use: No Hx Substance Use: No Preferred Language: Kazakh Communication Ability: Effective Manager Reading Required: No Beliefs That Will Affect Care: None marital status: Single Current Living Situation: Alone current occupational status: retired How many Children do You have: 0 Feels Safe at Home: Yes Safety Concerns: Feels Safe At This Time Diet: regular during the past year weight has: decreased > 10 lbs Assistive Devices: Glasses and Hospital Bed Review of Systems Review of Systems: All systems reviewed & are unremarkable except as noted in Subjective Physical Exam Physical Exam: General: No acute distress Skin: Warm and dry, without rashes or lesions Head: Normocephalic, atraumatic Eyes: PERRL, conjunctivae clear, sclera non-icteric ENT: External ear and ear canal without swelling; nose atraumatic; mucous mem brane and lips appearing dry Neck: Supple, no LAD Cardio: RRR, no M/G/R, S1 and S2 normal Resp: Normal respiratory effort; No respiratory distress, Lungs CTA in all lobes bilaterally, no wheezes, rales, or rhonchi Abdomen: Soft, symmetric, nontender; no distention; No masses or hepatosplenomegaly; no signs peritonitis, no rebound tenderness MSK: No deformities, full ROM throughout; sensation normal to UE/LE; pulses palpable and equal; no edema. Neuro: Awake, alert; CN intact Psych: Appropriate mood and affect; good judgement and insight. Results & Data Results & Data Vital Signs (Past 12 Hours) Vital Signs Temp Pulse Pulse Resp BP BP Pulse Ox 07/25/24 09:41 88 16 105/71 96 07/25/24 07:55 86 20 87/70 L 96 07/25/24 07:54 97 07/25/24 07:48 86 07/25/24 07:34 36.8 C 93 H 20 84/55 L 98 O2 Del Method 07/25/24 09:41 Room Air 07/25/24 07:55 Room Air 07/25/24 07:54 Room Air 07/25/24 07:48 07/25/24 07:34 Room Air Laboratory Results 07/25/24 07/25/24 09:48 07:51 WBC 18.69 H RBC 3.49 L Hgb 11.7 L Hct 34.8 L MCV 99.7 MCH 33.5 MCHC 33.6 RDW Std Deviation 50.6 H RDW Coeff of Valerie 14.3 Plt Count 208 MPV 10.1 Immature Gran % (Auto) 0.7 Neut % (Auto) 83.1 Lymph % (Auto) 7.6 Lassen % (Auto) 8.1 Eos % (Auto) 0.1 Baso % (Auto) 0.4 Neut # (Auto) 15.54 H Lymph # (Auto) 1.42 Lassen # (Auto) 1.51 H Eos # (Auto) 0.01 Baso # (Auto) 0.08 Immature Gran # (Auto) 0.13 Sodium 139 Potassium 3.1 L Chloride 101 Carbon Dioxide 28 Anion Gap 10 BUN 14 Creatinine 1.02 Est Cr Clr Drug Dosing 69.2 eGFR 77.60 BUN/Creatinine Ratio 13.7 Glucose 112 H Calcium 9.6 Total Bilirubin 2.6 H AST 18 ALT 19 Alkaline Phosphatase 45 Total Protein 6.7 Albumin 4.5 Globulin 2.2 L Albumin/Globulin Ratio 2.0 Urine Color Yellow Urine Appearance Clear Urine pH 6.5 Ur Specific Semmes 1.010 Urine Protein Negative Urine Glucose (UA) Negative Urine Ketones Negative Urine Blood Negative Urine Nitrite Negative Urine Bilirubin Negative Urine Urobilinogen Negative Ur Leukocyte Esterase Negative Diagnostic Findings Chest X-Ray 07/25/24 08:51 XR chest 1V portable CLINICAL HISTORY: Shortness of breath. Weakness. COMPARISON STUDY: Chest radiograph July 04, 2024. FINDINGS: Mild elevation of the left hemidiaphragm is unchanged. There is no consolidation. Minimal left basilar opacity favors atelectasis. There is no pneumothorax or pleural effusion. Mild cardiomegaly is unchanged. Mediastinal contours are normal. There is no evidence for pulmonary edema. IMPRESSION: No acute cardiopulmonary findings. No change in appearance of the chest. ACT 112: Negative or not required by law. Electronically signed by: Donald Choi M.D. 07/25/2024 9:15 AM Code Status & VTE Plan Code Status Full Supervising Physician Co-Signing Physician Notes Patient seen and examined, chart reviewed, case discussed with Briana Mendez PA-C and I agree with the assessment and plan as above except as otherwise noted Labs and images reviewed 74-year-old male presents with progressive weakness, volume contraction after 2 weeks of diarrhea. No pain but significantly elevated white count and 2 weeks of ongoing symptoms without blood. has a history of acute cholecystitis treated without patient antibiotics Cipro/Flagyl which was completed 07/14 and is pending follow-up for robot-assisted lap karime for acalculous cholecystitis. CTA/P shows nonspecific proctocolitis. Is seen at the bedside and he reports after completing his course of antibiotics he has had multiple daily bowel move ments of near completely liquid stool with a foul smell. Highly suspicious for C. difficile. C. difficile was sent. Patient seen on reassessment in the afternoon unfortunately sample was lost in transport and testing remained pending. Given liquid foul-smelling stool following antibiotics and a white count greater than 15 in order to prevent a delay in treatment patient was ordered empiric vancomycin p.o. for severe nonfulminant C. difficile empirically with testing pending. If C. difficile testing is negative we will discontinue and reconsider enteric coverage at that time. Agree with above. PG Care Time/CCT Total # of Minutes Spent Total Time Spent with Patient: Total time spent is greater than 50% in coordination of care (as documented) at patient's floor/unit and/or counseling patient: Coding Level of Care Code 57666 INT INP/OBS CARE 2/55MIN Diagnoses Dizziness R42 Leukocytosis D72.829 Hypokalemia E87.6 B12 deficiency E53.8 BPH (benign prostatic hyperplasia) N40.0 Thrombocytopenia D69.6 Time Spent (min) 70
[2024-07-25] MEDS: OPTIRAY 320 100ml IV ONE (13:00)
--- NOTE | 2024-07-25 13:25 | CT Scan Report ---
ABDOMEN AND PELVIS CT WITH IV AND ORAL CONTRAST CT DOSE: 1079.3 mGy.cm HISTORY: Acute generalized abdominal pain Diarrhea, Leukocytosis TECHNIQUE: Multiaxial CT images of the abdomen and pelvis were performed following the IV administrat ion of 94 cc of Optiray and oral contrast. A dose lowering technique was utilized adhering to the pr inciples of JEFERSON. COMPARISON STUDY: CT abdomen and pelvis 07/13/2024, hepatobiliary scan 07/13/2024. FINDINGS: Study is mildly degraded by respiratory motion. Subcentimeter subpleural nodular foci of th e lung bases are favored to be benign. Mild subsegmental bibasilar atelectasis. No pneumoperitoneum. Spleen measures 13.6 cm in length. Unremarkable pancreas and adrenal glands. Gallbladder wall thicken ing is noted without significant gallbladder distention or pericholecystic edema. Unremarkable liver. Patent portal vein. Unremarkable kidneys without hydronephrosis. Prostatomegaly. Distended urinary b ladder with wall thickening. Atherosclerosis of the aorta without aneurysm. No lymphadenopathy. No bowel obstruction. Mild nonspecific distal esophageal wall thickening. Duodenal diverticulum. Hessel juan j diverticulosis. Circumferential wall thickening is noted throughout the rectum and sigmoid also i nvolving the distal descending colon. Adjacent inflammatory stranding with trace ascites. Normal appe ndix. No acute fracture. Subcutaneous edema lateral to the left greater trochanter measures up to shane roximately 6 cm in length. Findings are similar to prior and may represent bursitis versus contusion. IMPRESSION: 1. Findings compatible with a nonspecific proctocolitis extending from the distal descending to the r ectum. 2. No bowel obstruction or pneumoperitoneum. 3. Colonic diverticulosis. 4. Prostamegaly with evidence of chronic outlet obstruction. 5. There is mild nonspecific wall thickening of the gallbladder without significant gallbladder diste ntion or pericholecystic inflammation to suggest acute cholecystitis. 6. Additional findings as above. ACT 112: Negative or not required by law. The above report was generated using voice recognition software. It may contain grammatical, syntax o r spelling errors. Electronically signed by: Raymond Hinton M.D. 07/25/2024 1:23 PM
[2024-07-25] MEDS: SODIUM CHLORIDE 0.9% 1,000 ML IV SCH (16:29)
[2024-07-25] MEDS: INFLUENZA VACC TS2024-25(65y+)/PF (IIV3) 0.5mL Syr IM ONE (19:27)
[2024-07-25 19:40] LABS: Adenovirus F 40/41 PCR Not Detected (NotDetected); Astrovirus PCR Not Detected (NotDetected); Campylobacter PCR Not Detected (NotDetected); Cryptosporidium PCR Not Detected (NotDetected); Cyclospora cayetanensis PCR Not Detected (NotDetected); Entamoeba histolytica PCR Not Detected (NotDetected); Enteroaggregative E.coli(EAEC) Not Detected (NotDetected); Enteropathogenic E.coli (EPEC) Not Detected (NotDetected); Enterotoxigenic E.coli (ETEC) Not Detected (NotDetected); Giardia lamblia PCR Not Detected (NotDetected); Norovirus GI/GII PCR Not Detected (NotDetected); Plesiomonas shigelloides PCR Not Detected (NotDetected); Rotavirus A PCR Not Detected (NotDetected); Salmonella PCR Not Detected (NotDetected); Sapovirus PCR Not Detected (NotDetected); Shiga-like Toxin E.coli (STEC) Not Detected (NotDetected); Shigella/Enteroinvasive E.coli Not Detected (NotDetected); Vibrio cholerae PCR Not Detected (NotDetected); Vibrio species PCR Not Detected (NotDetected); Yersinia enterocolitica PCR Not Detected (NotDetected)
[2024-07-25] MEDS: VANCOMYCIN HCL 125 MG/2.5ML SOLN PO SCH (20:08)
[2024-07-25] MEDS: CHERRY SYRUP 5 ML UDP PO SCH (20:08)
[2024-07-25 20:37] LABS: Cdiff Antigen Positive; Cdiff Toxin B Gene (2yr or >) Positive Cdiff Gene (Neg)
[2024-07-25 20:41] LABS: Cdiff Toxin A+B Positive Cdiff Toxin (Negative)
[2024-07-26 07:53] LABS: BUN Creatinine Ratio 13.3 (10-20); Calcium 9.1 mg/dl (8.6-10.3); Creatinine Clr Calc Pharmacy 78.5 ml/min; Potassium 3.6 mmol/L (3.5-5.1)
[2024-07-26 07:55] LABS: Basophils # (auto) 0.07 K/uL (0.00-0.20); Basophils % (auto) 0.9 %; Eosinophils % (auto) 1.3 %; Hematocrit (blood only) 33.1 % (42.0-52.0); Hemoglobin 10.8 g/dl (14.0-18.0); Immature Granulocytes # (auto) 0.03 K/uL (0.01-0.20); Immature Granulocytes % (auto) 0.4 %; Lymphocytes # (auto) 1.12 K/uL (1.20-3.40); Lymphocytes % (auto) 14.6 %; Mean Corpuscular Hemoglobin 33.6 pg (25.0-34.0); Mean Corpuscular Hgb Conc 32.6 g/dL (32.0-36.0); Mean Corpuscular Volume 103.1 fL (80.0-100.0); Mean Platelet Volume 10.4 fL (9.4-12.4); Monocytes # (auto) 0.77 K/uL (0.11-0.59); Neutrophils # (auto) 5.59 K/uL (1.40-6.50); Neutrophils % (auto) 72.8 %; Platelet Count 193 K/uL (130-400); RDW Coefficient of Variation 14.1 % (11.5-14.5); Red Blood Count 3.21 M/uL (4.70-6.10); White Blood Count 7.68 K/ul (4.8-10.8)
--- NOTE | 2024-07-26 08:02 | Hospitalist Progress Note ---
Date of Service July 26, 2024 Assessment & Plan (1) C. difficile colitis: Plan: Dizziness/weakness x 1 to 2 days, most notable with changing of position, +associated diarrhea x 2 weeks in patient with recent acute karime tx w/ abx Cipro/Flagyl through 07/14 pending f/u robot lap karime for acalculous cholecystitis CTAP on admission w/ nonspecific proctocolitis and given recent abx use, highly suspicious for cdiff. WBC elevated to 18.6k as well, hgb 11.7., TB elevated but other LFTs wnl Lost initial sample and placed on empiric vanco until resulted Given 1L NSS, 40meq PO Kcl Stool testing with POSITIVE cdiff + gene/toxin Isolation precautions placed 07/26 Continue Vanco 125mg PO q6h x 10 day course planned, can be extended to 14 days if needed WBC now wnl 7.6k, afebrile. Hgb stable Decreased diarrhea, no BM this morning but no increased abdominal pain/distension but discussed to notify if occurs Orthostatic VS positive, will hold off his home lisinopril-HCTZ for now. PO hydration encouraged When resuming if improved PO intake, discussed to resume lisinopril 10mg FIRST, then if keeping up with PO intake can resume HCTZ 12.5mg following day Of note, did have some neuropathy to his hands, ?if from recent FLQ use w/ Ciprofloxacin. Occuring x 1-2 wks, fitting timeline. Monitor/outpatient follow up. Interestingly B12 level checked in the past given MCV >100 and was <50 on 07/02 but 1179 on 07/13 but ?following replacement as repeat to 373. PO supplementation restarted and should be continued at dc. Monitoring bowels/hydration overnight, electrolytes improved on labs and improvement/slowed diarrhea. If stable in AM will plan to dc on Vanco PO to complete course. (2) Dizziness: Plan: Dizziness/weakness x 1 to 2 days, most notable with changing of position, associated diarrhea x 2 weeks; uses walker to ambulate normally. Was dc home on Cipro and Flagyl on 07/14, completed course - Admit to med telemetry - Currently stable and nontoxic-appearing; normotensive and without fever - Appears dry on exam- oral cavity, no edema to BLE; hypotensive on arrival but now normotensive; No IVF fluids provided in ED- promote oral rehydration - PT/OT consults will be needed- Utilizing walker x 2 months per patient - CBC- WBC 18.69, neutrophil 15.54; H&H 11.7/34.8 - CMP- K 3.1, bilirubin 2.6, globulin 2.2. Mag 2.0, CTAP/cdiff testing as above. planning for outpt karime w/ PCP (3) Leukocytosis: Plan: suspected 2nd to above. improving w/ hydration/Vancomycin and will continue (4) Hypokalemia: Plan: Suspected 2nd to GI losses/diarrhea. PO replacement ordered, mag wnl on check BMP w/ stable electrolytes Monitor w/ diarrhea as above (5) B12 deficiency: Plan: Most recent hospitalization for such 07/04 to 07/05/2024 - Ongoing pins and needle sensation in bilateral fingertips - No recent falls, no neurologic symptoms otherwise - Vitamin B12 2000 mcg daily at home; hold until B12 levels return - Vitamin B12 on 07/13 was 1178 - Positive for IF antibody B12 replacement as above, consider outpt f/u [facility] given peripheral neuropathy suspected worsened w/ FLQ use (6) BPH (benign prostatic hyperplasia): Plan: No LUTS currently - Finasteride 5 mg daily - UA without signs of infection - Bladder scan prn Monitor UOP Plan HLD- simvastatin 20 mg daily HTN- BP stable 121/76 --On lisinopril-hydrochlorothiazide daily at baseline. -- Orthostatic VS + as above Holding HCTZ/lisinopril as above and possible restarting dolly in AM 07/27 pending hydration status/orthostatic VS DVT propH: SCDs Dispo: continued inpatient stay on Vancomycin, possible dc 07/27 pending labs/exam/diarrhea Admission and Anticipated Discharge Date Admission Date: July 25, 2024 Supervising Physician Co-Signing Physician Notes The patient was seen by me. The chart was reviewed. Case discussed with SANJUANA Tran. Agree with assessment and plan Subjective Evaluated this morning, doing well. Discussed stool testing positive for cdiff, Vancomycin PO. Reports feeling improved, no further diarrhea but having urge. No increased abdominal pain but discussed to alert if occurs but will continue the Vancomycin. Orthostatic VS positive, slightly dry on exam and encouraged PO intake. Reports lightheaded/dizziness symptoms resolved. Concerned initially about some neuropathy to his fingers w/ hx of TIA but discussed symptoms for about 1-2 weeks, likely from Ciprofloxacin for acute karime and to monitor if any worsening but is non focal on exam/not confused. Possible dc in AM if continued bowel movements/improvement in PO intake and resolution in diarrhea. Questions/concerns addressed at this time. Physical Exam 2 Physical Exam: General: 74yo male sitting up in bed, NAD, reports feeling better than admission HEENT: head atrauamtic, normocephalic, mm SLIGHTLY dry, trachea midline Resp; even/unlabored, no w/c/r, on room air CV: RRR, no significant m/r/g, no pitting edema/calf tenderness GI: +BS, slight distension but no overt tenderness, no rebound/guarding no marie MSK/Neuro: nonfocal, following commands, not confused some slight neuropathy to b/l fingers/hands (?recent ciprofloxacin) but intact to pressure Psych: AOx3, cooperative with exam Results & Data Results & Data Vital Signs (Past 12 Hours) Vital Signs Temp Pulse Resp BP Pulse Ox O2 Del Method 07/26/24 07:36 36.5 C 63 16 121/76 99 Room Air Laboratory Results 07/26/24 07:08 07/26/24 07:08 Diagnostic Findings Abdomen/Pelvis CT 07/25/24 10:[address] WITH IV AND ORAL CONTRAST CT DOSE: 1079.3 mGy.cm HISTORY: Acute generalized abdominal pain Diarrhea, Leukocytosis TECHNIQUE: Multiaxial CT images of the abdomen and pelvis were performed following the IV administration of 94 cc of Optiray and oral contrast. A dose lowering technique was utilized adhering to the principles of ALARA. COMPARISON STUDY: CT abdomen and pelvis 07/13/2024, hepatobiliary scan 07/13/2024. FINDINGS: Study is mildly degraded by respiratory motion. Subcentimeter subpleural nodular foci of the lung bases are favored to be benign. Mild subsegmental bibasilar atelectasis. No pneumoperitoneum. Spleen measures 13.6 cm in length. Unremarkable pancreas and adrenal glands. Gallbladder wall thickening is noted without significant gallbladder distention or pericholecystic edema. Unremarkable liver. Patent portal vein. Unremarkable kidneys without hydronephrosis. Prostatomegaly. Distended urinary bladder with wall thickening. Atherosclerosis of the aorta without aneurysm. No lymphadenopathy. No bowel obstruction. Mild nonspecific distal esophageal wall thickening. Duodenal diverticulum. Colonic diverticulosis. Circumferential wall thickening is noted throughout the rectum and sigmoid also involving the distal descending colon. Adjacent inflammatory stranding with trace ascites. Normal appendix. No acute fracture. Subcutaneous edema lateral to the left greater trochanter measures up to approximately 6 cm in length. Findings are similar to prior and may represent bursitis versus contusion. IMPRESSION: 1. Findings compatible with a nonspecific proctocolitis extending from the distal descending to the rectum. 2. No bowel obstruction or pneumoperitoneum. 3. Colonic diverticulosis. 4. Prostamegaly with evidence of chronic outlet obstruction. 5. There is mild nonspecific wall thickening of the gallbladder without significant gallbladder distention or pericholecystic inflammation to suggest acute cholecystitis. 6. Additional findings as above. ACT 112: Negative or not required by law. The above report was generated using voice recognition software. It may contain grammatical, syntax or spelling errors. Electronically signed by: Raymond Hinton M.D. 07/25/2024 1:23 PM PG Care Time/CCT Total # of Minutes Spent Total Time Spent with Patient: Total time spent is greater than 50% in coordination of care (as documented) at patient's floor/unit and/or counseling patient: Coding Level of Care Code 76962 SUB INP/OBS CARE 3/50MIN Diagnoses C. difficile colitis A04.72 Dizziness R42 Leukocytosis D72.829 Hypokalemia E87.6 B12 deficiency E53.8 BPH (benign prostatic hyperplasia) N40.0
[2024-07-26] MEDS: CYANOCOBALAMIN (B-12) 500 MCG TABLET PO SCH (09:36)
[2024-07-26] MEDS: FINASTERIDE 5 MG TAB PO SCH (09:37)
[2024-07-26] MEDS: SIMVASTATIN 20 MG TAB PO SCH (09:37)
[2024-07-26] MEDS: POLYETHYLENE (MIRALAX) 17 GM PACK PO ONE (14:53)
[2024-07-27] MEDS: CYANOCOBALAMIN 1000 MCG/ML VIAL IM SCH (07:48)
--- NOTE | 2024-07-27 08:11 | XRay Report ---
EXAM: XR KUB/Abdomen 1 view CLINICAL HISTORY: +CDIFF KAB [facility] TECHNIQUE: X-ray images of the abdomen were obtained in AP position COMPARISON: 07/25/2024 FINDINGS: Gas Pattern: Gas pattern within the abdomen is normal. No evidence of bowel obstruction or distention. Soft Tissues: Bilateral psoas shadows are normal. Soft tissues of the abdomen appear normal without evidence of masses or calcifications. Liver and spleen are of normal size and position. Bones and joints: Bilateral degenerative changes in hip joints with joint space narrowing and sub-articular sclerosis. IMPRESSION: 1. No evidence of bowel obstruction or distention. 2. Bilateral degenerative changes in hip joints with joint space narrowing and sub-articular sclerosis. 3. No time interval changes. Electronically signed by Scottie Adams 07-27-2024 08:11 AM
[2024-07-27 08:26] LABS: Hematocrit (blood only) 32.7 % (42.0-52.0); Hemoglobin 10.8 g/dl (14.0-18.0); Mean Corpuscular Hemoglobin 33.8 pg (25.0-34.0); Mean Corpuscular Volume 102.2 fL (80.0-100.0); Mean Platelet Volume 10.3 fL (9.4-12.4); Platelet Count 198 K/uL (130-400); RDW Coefficient of Variation 13.9 % (11.5-14.5); RDW Standard Deviation 50.2 fL (36.4-46.3); White Blood Count 8.95 K/ul (4.8-10.8)
[2024-07-27 08:47] LABS: BUN Creatinine Ratio 9.1 (10-20); Calcium 9.1 mg/dl (8.6-10.3); Creatinine Clr Calc Pharmacy 80.3 ml/min; Magnesium 1.9 mg/dl (1.7-2.4); Potassium 3.2 mmol/L (3.5-5.1)
--- NOTE | 2024-07-27 08:49 | Hospitalist Progress Note ---
Date of Service July 27, 2024 Assessment & Plan (1) C. difficile colitis: Plan: Dizziness/weakness x 1 to 2 days, most notable with changing of position, +associated diarrhea x 2 weeks in patient with recent acute karime tx w/ abx Cipro/Flagyl through 07/14 pending f/u robot lap karime for acalculous cholecystitis WBC 18.6k, TB elevated but other LFTs wnl CTAP on admission w/ nonspecific proctocolitis and given recent abx use, highly suspicious for cdiff. Stool testing POSITIVE for CDIFF gene/toxin Isolation precaution placed WBC normalized, afebrile Vancomycin PO q6h continued. Planning 10 day course planned, can extend to 14 days if needed Low fiber diet Did get dose miralax/colace per patient request on 07/28 and reporting 4 BM this morning. Discussed AVOIDING miralax/colace or other stimulants to prevent worsening diarrhea/dehydration. K 3.2, 40meq PO ordered. Mag wnl. Tolerating PO, good appetite reported. Monitor bowel movements, consideration for dificid if needed Orthostatic VS + but no further dizziness/lightheadedness today, home HCTZ- lisinopril on HOLD. If needing to resume would opt for lisinopril ALONE and hold off HCTZ to prevent dehydration/electrolyte issues. PT consult placed for completeness, hopeful dc 07/28 if diarrhea slowed/electrolytes stable. (2) Dizziness: Plan: Dizziness/weakness x 1 to 2 days, most notable with changing of position, associated diarrhea x 2 weeks; uses walker to ambulate normally. As above, suspecting symptoms from cdiff/diarrhea/dehydration. IVF provided and diuretics held Reports RESOLUTION in dizziness w/ tx as above, ambulating to the bathroom without issue. Notable HCTZ on HOLD, likely would stop at dc given + orthostatic VS and promote hydration and can monitor BP/f/u PCP regarding ongoing issue if needed. WBC normalized/afebrile. Vanco as outlined Of note, B12 prior low, hx IF+ antibody and providing dose IM B12 and will repeat for tomorrow and should have outpt f/u PCP for weekly injections as previously planned (3) Leukocytosis: Plan: suspected 2nd to above. improving/RESOLVED w/ PO Vanco/hydration (4) Hypokalemia: Plan: Suspected 2nd to GI losses/diarrhea. PO replacement ordered, mag wnl on check. Normalized on repeat but increased BMs as above overnight and additional replacement ordered. HCTZ remaining on HOLD, would likely plan to continue to hold at ks BMP in AM planned (5) B12 deficiency: Plan: Most recent hospitalization for such 07/04 to 07/05/2024 - Ongoing pins and needle sensation in bilateral fingertips - No recent falls, no neurologic symptoms otherwise B12 prior low, <50. +IF antibody. Was getting daily injections then to be getting weekly. On 1999mcg PO daily B12 level in 300s, repeat IM x1 for today and planning to repeat for 07/28 and to have weekly injections/follow up outpatient. Consideration ref to neurology in f/u PCP (6) BPH (benign prostatic hyperplasia): Plan: No LUTS currently, remains on finasteride. UA not appearing infected. Monitoring UOP, no issues reported (7) Hypotension: Plan: Hx HTN, on HCTZ/lisinopril at baseline BP LOW on admission, suspecting contributed to dizziness w/ dehydration from diarrhea from cdiff infection above given + orthostatic VS as well HCTZ-lisinopril on HOLD on admission, BPs stable/ improving and less dehydrated on exam but + diarrhea as above and ongoing + orthostatic VS and will remain OFF for now ABOVE, if needing BP control can resume lisinopril but suspect DC HCTZ at ks until follow up with PCP to prevent worsening dehydration/electrolyte abn Plan HLD- simvastatin 20 mg daily continued DVT propH: SCDs, ambulating in the room. No increased LE edema Dispo: continued inpatient stay on Vancomycin, monitor to switch to Dificid as needed. potassium replacement ordered. Hopeful d/c 07/28 , PT vamshi placed Admission and Anticipated Discharge Date Admission Date: July 26, 2024 Supervising Physician Co-Signing Physician Notes The patient was not seen by me. The chart was reviewed. Case discussed with SANJUANA Tran. Agree with assessment and plan Subjective Evaluated this morning, resting in bed. Reporting increased diarrhea today, and discussed the miralax/colace provided per req likely not ideal and discussed holding off any further. Reports 4 Bm this morning, no increased abdominal pain. Will continue vancomycin for now but discussed if increased diarrhea this afternoon will consider switching to dificid if needed. Discussed holding off BP meds, orthostatics still positive however patient reporting decent PO intake and DENIES lightheaded/dizziness when up/ambulating. PO hydration encouraged and discussed no diuretics at this time. B12 injection today, to be getting outpt weekly arranged by PCP. Consider repeat injection tomorrow vs continued PO. No fever/chills, chest pain, shortness of breath reported. Questions/concerns addressed at this time. Physical Exam 2 Physical Exam: General: 74yo male sitting up in bed, NAD HEENT: head atraumatic, normocephalic, mm improved, trachea midline Resp; even/unlabored, no w/c/r, on room air CV: RRR, no significant m/r/g, no pitting edema/calf tenderness GI: +BS throughout, slight distension but no overt tenderness, no rebound/guarding no marie MSK/Neuro: nonfocal, following commands, not confused -some slight neuropathy to b/l fingers/h ands, but intact to pressure, strength equal bilaterally Psych: AOx3, cooperative with exam Results & Data Results & Data Vital Signs (Past 12 Hours) Vital Signs Temp Pulse Resp BP Pulse Ox O2 Del Method 07/27/24 07:53 36.4 C L 70 14 113/72 98 Room Air Laboratory Results 07/27/24 07:37 07/27/24 07:37 Mag 1.9 Diagnostic Findings KUB X-Ray 07/27/24 07:00 EXAM: XR KUB/Abdomen 1 view CLINICAL HISTORY: +CDIFF KAB [facility] TECHNIQUE: X-ray images of the abdomen were obtained in AP position COMPARISON: 07/25/2024 FINDINGS: Gas Pattern: Gas pattern within the abdomen is normal. No evidence of bowel obstruction or distention. Soft Tissues: Bilateral psoas shadows are normal. Soft tissues of the abdomen appear normal without evidence of masses or calcifications. Liver and spleen are of normal size and position. Bones and joints: Bilateral degenerative changes in hip joints with joint space narrowing and sub-articular sclerosis. IMPRESSION: 1. No evidence of bowel obstruction or distention. 2. Bilateral degenerative changes in hip joints with joint space narrowing and sub-articular sclerosis. 3. No time interval changes. Electronically signed by Scottie Adams 07-27-2024 08:11 AM PG Care Time/CCT Total # of Minutes Spent Total Time Spent with Patient: Total time spent is greater than 50% in coordination of care (as documented) at patient's floor/unit and/or counseling patient: Coding Level of Care Code 08673 SUB INP/OBS CARE 235MIN Diagnoses C. difficile colitis A04.72 Dizziness R42 Leukocytosis D72.829 Hypokalemia E87.6 B12 deficiency E53.8 BPH (benign prostatic hyperplasia) N40.0 Hypotension I95.9
[2024-07-27] MEDS: POTASSIUM CHLORIDE CRTAB 20 MEQ TABCR PO STA (09:47)
--- NOTE | 2024-07-27 10:53 | Electrocardiogram Report ---
Test Reason : Blood Pressure : */* mmHG Vent. Rate : 84 BPM Atrial Rate : 84 BPM P-R Int : 158 ms QRS Dur : 148 ms QT Int : 422 ms P-R-T Axes : 53 -14 95 degrees QTcB Int : 498 ms Normal sinus rhythm Left bundle branch block Abnormal ECG When compared with ECG of 13-Jul-2024 01:05, Vent. rate has increased by 28 bpm Left bundle branch block is now Present Confirmed by Maxx Cabral ([id number]) on 07/27/2024 10:52:49 AM Referred By: REFERRED SELF Confirmed By: Maxx Cabral
[2024-07-28 07:19] VITALS: BP 122/76; PULSE 60; RESP 16; TEMP 97.9; O2SAT 97
[2024-07-28] MEDS: CYANOCOBALAMIN 1000 MCG/ML VIAL IM SCH (07:21)
--- NOTE | 2024-07-28 08:19 | Hospitalist Progress Note ---
Date of Service July 28, 2024 Assessment & Plan (1) C. difficile colitis: Plan: Dizziness/weakness x 1 to 2 days, most notable with changing of position, +associated diarrhea x 2 weeks in patient with recent acute karime tx w/ abx Cipro/Flagyl through 07/14 pending f/u robot lap karime for acalculous cholecystitis WBC 18.6k, TB elevated but other LFTs wnl CTAP on admission w/ nonspecific proctocolitis and given recent abx use, highly suspicious for cdiff. Stool testing POSITIVE for CDIFF gene/toxin Isolation precaution placed WBC normalized, afebrile Vancomycin PO q6h continued. Planning 10 day course planned, can extend to 14 days if needed Low fiber diet Did get dose miralax/colace per patient request on 07/28 and reporting 4 BM this morning. Discussed AVOIDING miralax/colace or other stimulants to prevent worsening diarrhea/dehydration. K 3.2, 40meq PO ordered. Mag wnl. Tolerating PO, good appetite reported. Monitor bowel movements, consideration for dificid if needed Orthostatic VS + but no further dizziness/lightheadedness today, home HCTZ- lisinopril on HOLD. If needing to resume would opt for lisinopril ALONE and hold off HCTZ to prevent dehydration/electrolyte issues. PT consult placed for completeness, hopeful dc 07/28 if diarrhea slowed/electrolytes stable. 07/28-- hopeful dc once labs back if feeling well. monitoring orthostatic VS, PT eval pending (2) Dizziness: Plan: Dizziness/weakness x 1 to 2 days, most notable with changing of position, associated diarrhea x 2 weeks; uses walker to ambulate normally. As above, suspecting symptoms from cdiff/diarrhea/dehydration. IVF provided and diuretics held Reports RESOLUTION in dizziness w/ tx as above, ambulating to the bathroom without issue. Notable HCTZ on HOLD, likely would stop at dc given + orthostatic VS and promote hydration and can monitor BP/f/u PCP regarding ongoing issue if needed. WBC normalized/afebrile. Vanco as outlined Of note, B12 prior low, hx IF+ antibody and providing dose IM B12 and will repeat for tomorrow and should have outpt f/u PCP for weekly injections as previously planned (3) Leukocytosis: Plan: suspected 2nd to above. improving/RESOLVED w/ PO Vanco/hydration (4) Hypokalemia: Plan: Suspected 2nd to GI losses/diarrhea. PO replacement ordered, mag wnl on check. Normalized on repeat but increased BMs as above overnight and additional replacement ordered. HCTZ remaining on HOLD, would likely plan to continue to hold at dc BMP in AM planned (5) B12 deficiency: Plan: Most recent hospitalization for such 07/04 to 07/05/2024 - Ongoing pins and needle sensation in bilateral fingertips - No recent falls, no neurologic symptoms otherwise B12 prior low, <50. +IF antibody. Was getting daily injections then to be getting weekly. On 1999mcg PO daily B12 level in 300s, repeat IM x1 for today and planning to repeat for 07/28 and to have weekly injections/follow up outpatient. Consideration ref to neurology in f/u PCP (6) BPH (benign prostatic hyperplasia): Plan: No LUTS currently, remains on finasteride. UA not appearing infected. Monitoring UOP, no issues reported (7) Hypotension: Plan: Hx HTN, on HCTZ/lisinopril at baseline BP LOW on admission, suspecting contributed to dizziness w/ dehydration from diarrhea from cdiff infection above given + orthostatic VS as well HCTZ-lisinopril on HOLD on admission, BPs stable/ improving and less dehydrated on exam but + diarrhea as above and ongoing + orthostatic VS and will remain OFF for now ABOVE, if needing BP control can resume lisinopril but suspect DC HCTZ at dc until follow up with PCP to prevent worsening dehydration/electrolyte abn Plan HLD- simvastatin 20 mg daily continued DVT propH: SCDs, ambulating in the room. No increased LE edema Dispo: continued inpatient stay on Vancomycin, monitor to switch to Dificid as needed. potassium replacement ordered. Hopeful d/c 07/28 , PT evals placed Admission and Anticipated Discharge Date Admission Date: July 26, 2024 Results & Data Results & Data Vital Signs (Past 12 Hours) Vital Signs Temp Pulse Resp BP BP Pulse Ox O2 Del Method 07/28/24 07:17 36.6 C 60 16 122/76 97 Room Air 07/27/24 21:55 36.5 C 61 14 105/62 100 Room Air PG Care Time/CCT Total # of Minutes Spent Total Time Spent with Patient: Total time spent is greater than 50% in coordination of care (as documented) at patient's floor/unit and/or counseling patient: Coding Diagnoses C. difficile colitis A04.72 Dizziness R42 Leukocytosis D72.829 Hypokalemia E87.6 B12 deficiency E53.8 BPH (benign prostatic hyperplasia) N40.0 Hypotension I95.9
[2024-07-28 08:36] LABS: Basophils # (auto) 0.06 K/uL (0.00-0.20); Basophils % (auto) 1.3 %; Eosinophils # (auto) 0.11 K/uL (0.00-0.50); Eosinophils % (auto) 2.4 %; Hematocrit (blood only) 31.3 % (42.0-52.0); Hemoglobin 10.2 g/dl (14.0-18.0); Immature Granulocytes # (auto) 0.02 K/uL (0.01-0.20); Immature Granulocytes % (auto) 0.4 %; Lymphocytes # (auto) 1.32 K/uL (1.20-3.40); Lymphocytes % (auto) 29.1 %; Mean Corpuscular Hemoglobin 33.1 pg (25.0-34.0); Mean Corpuscular Hgb Conc 32.6 g/dL (32.0-36.0); Mean Corpuscular Volume 101.6 fL (80.0-100.0); Mean Platelet Volume 10.3 fL (9.4-12.4); Monocytes # (auto) 0.61 K/uL (0.11-0.59); Monocytes % (auto) 13.5 %; Neutrophils # (auto) 2.41 K/uL (1.40-6.50); Neutrophils % (auto) 53.3 %; Platelet Count 205 K/uL (130-400); RDW Standard Deviation 49.7 fL (36.4-46.3); Red Blood Count 3.08 M/uL (4.70-6.10); White Blood Count 4.53 K/ul (4.8-10.8)
[2024-07-28 08:49] LABS: BUN Creatinine Ratio 7.6 (10-20); Creatinine Clr Calc Pharmacy 76.8 ml/min; Potassium 3.6 mmol/L (3.5-5.1)
[2024-07-28] MEDS ORDERED: CYANOCOBALAMIN (B-12) 500 MCG TABLET PO SCH (09:00)
--- NOTE | 2024-07-28 10:00 | Discharge Summary ---
Discharge Summary Date of Service July 28, 2024 Principal Dx & Hospital Course #1 = Principal Diagnosis (1) C. difficile colitis: Dizziness/weakness x 1 to 2 days, most notable with changing of position, +associated diarrhea x 2 weeks in patient with recent acute karime tx w/ abx Cipro/Flagyl through 07/14 pending f/u robot lap karime for acalculous cholecystitis WBC 18.6k, TB elevated but other LFTs wnl CTAP on admission w/ nonspecific proctocolitis and given recent abx use, highly suspicious for cdiff. Stool testing POSITIVE for CDIFF gene/toxin Started/continued on Vancomycin PO q6h - planning 10 day course at discharge IVF provided for dehydration as well w/ resolution in dizziness/lightheadedness. Isolation precaution placed WBC normalized, remained afebrile Tolerating low fiber diet Electrolyte replacement undertaken and HCTZ/lisinopril HELD and discussed given BPs WELL controlled off this would AVOID HCTZ for now but did provide BP cuff prior to dc and instructed to monitor at home and discuss w/ primary care in follow up about resuming the lisinopril alone if needing for BP but would hold off to prevent hypotension and worsen symptoms given stability off of both medications and normalization of potassium. Orthostatic VS improved, no further symptoms. Hydration at dc encouraged. No further diarrhea. Encouraged to AVOID laxatives/stimulants as reqested x 1 on day 2 of stay w/ increased diarrhea but resolution once avoiding and was discussed with patient to avoid such at dc. Cleared by PT to return home as well. TO have f/u outpt PCP for B12 injections weekly. Did provide IM x 2 while inpat ient and continued 2000mcg PO in meantime given +IF antibody and prior lows. Of note, did have reported neuropathy in hands but suspected increased issue from recent CIPRO for his cholecystitis and reported improvement/resolution in that since being off (above his baseline). (2) Dizziness: RESOLVED with hydration and holding home diuretics/BP medications as above No further symptoms reported If ongoing, could consider cortisol level check but given acute illness has been deferred. No CP/SOB reported and again, ambulating without issues/sx reported F/u PCP about HCTZ-lisinopril as outlined above but instructed to HOLD at dc for now (3) Leukocytosis: resolved w/ tx above (4) Hypokalemia: RESOLVED suspected combination of GI lossess/diarrhea and HCTZ use at home. Mag wnl HCTZ HELD at dc as above, would likely avoid in follow up and opt for RADHA as prior on IF needed (5) B12 deficiency: Most recent hospitalization for such 07/04 to 07/05/2024 - Ongoing pins and needle sensation in bilateral fingertips - No recent falls, no neurologic symptoms otherwise B12 prior low, <50. +IF antibody. Was getting daily injections then to be getting weekly. On 2000mcg PO daily B12 level in 300s, repeat IM x 2 inpatient and f/u as outlined (6) BPH (benign prostatic hyperplasia): No LUTS currently, remains on finasteride. UA not appearing infected. UOP acceptable (7) Hypotension: 2nd to diarrhea/BP meds as above. IVF hydration and BP meds held and BPs STABLE off as above. Instructions for anti-HTN outlined above Plan HLD- simvastatin 20 mg continued DVT propH: SCDs, ambulating in the room. No increased LE edema Dc home on Vanco PO to complete course. Notes For Next Care Provider Monitor for any worsening diarrhea/need for dificid but diarrhea has resolved at time of discharge Instructed pt to hold OFF his HCTZ and sent rx for lisinopril at home alone if needing BP control but wanting to prevent dehydration/electrolyte abn and told patient to hold off HCTZ at dc. Attempting to get BP cuff but [facility]monitor BP at home and take for follow up (also told having machines in [facility] if waning to just go in and check) Ensure B12 injections arranged Medication Changes From Visit Vancomycin PO q6h to complete 10 days course, can extend if needed HOLD HCTZ for now Lisinopril 10mg daily IF NEEDED for BP/HTN at discharge but has been WELL controlled OFF while inpatient Admission HPI Per Admitting Provider Patient is a 74-year-old male presenting for dizziness/weakness x 1-2 days. ED course: CBC- WBC 18.69, neutrophils 15.54, H&H 11.7/34.8; CMP- K 3.1, bilirubin 2.6, globulin 2.2; UA WNL; CXR without acute findings; EKG appearing NSR around 80 bpm. Provided with KCl 40 mEq for hypokalemia while in ED. Patient is a 74-year-old male with PMHx of B12 deficiency, BPH, biliary sludge by ultrasound, thrombocytopenia and h/o cholecystitis presenting for dizziness/weakness x 1 to 2 days with associated diarrhea x 2 weeks. States that approximately 2 weeks ago he noticed that every time he would urinate, he would have unexpected bowel movements that were loose in nature. Reports this occurs every "few hours" but is unable to determine the exact amount of times. States that the dizziness/weakness started approximate 1 to 2 days ago, and he noticed that it would occur mainly whenever he was changing positions and is throughout his entire body. Patient does use a walker for ambulation, but still felt unsteady when ambulating. Also has had ongoing dry mouth, stating that he has to have water even throughout the night because he feels as though his mouth is so dry. New onset of pins and needle feeling in his bilateral hands. Also reports that within the past week, he is dropped approximately 5 pounds, and has noted anorexia for an unknown duration. Patient states that he will eat 1-2 bites of his meal, then feel full and not be able to finish. Currently denying abdominal pain or nausea/vomiting. Denies chest pain, shortness of breath, headache, fever/chills, constipation, syncopal episodes, or night sweats. Multiple hospital admissions with most recent/notable being 07/04-07/05 in which patient was diagnosed with severe vitamin B12 deficiency. Readmitted 07/13- 07/14 for abdominal pain; diagnosed with acute cholecystitis. Managed on Cipro and Flagyl x 7 days and completed course, then followed with general surgery 07/21 for outpatient appointment. Please see Dr. Venegas's attestation for adjustments/additions to treatment plan. Admission Exam Per Admitting Provider General: No acute distress Skin: Warm and dry, without rashes or lesions Head: Normocephalic, atraumatic Eyes: PERRL, conjunctivae clear, sclera non-icteric ENT: External ear and ear canal without swelling; nose atraumatic; mucous membrane and lips appearing dry Neck: Supple, no LAD Cardio: RRR, no M/G/R, S1 and S2 normal Resp: Normal respiratory effort; No respiratory distress, Lungs CTA in all lobes bilaterally, no wheezes, rales, or rhonchi Abdomen: Soft, symmetric, nontender; no distention; No masses or hepatosplenomegaly; no signs peritonitis, no rebound tenderness MSK: No deformities, full ROM throughout; sensation normal to UE/LE; pulses palpable and equal; no edema. Neuro: Awake, alert; CN intact Psych: Appropriate mood and affect; good judgement and insight. Discharge Exam General: 74yo male sitting up in bed, NAD HEENT: head atraumatic, normocephalic, mm improved, trachea midline Resp; even/unlabored, no w/c/r, on room air CV: RRR, no significant m/r/g, no pitting edema/calf tenderness GI: +BS throughout, soft/NT, no rebound/guarding no marie MSK/Neuro: nonfocal, following commands, not confused -some slight neuropathy to b/l fingers/hands, but intact to pressure, strength equal bilaterally Psych: AOx3, cooperative with exam Discharge Plan Discharge Items Patient Disposition: Home - Self-Care Reason For Visit: CDIFF Discharge Diagnosis: Cdiff Goals: You have been hospitalized for an acute medical problem. During your stay at [facility], we have made an effort to correct the problem that brought you to the hospital while keeping you as comfortable as possible. Medications were used to bring your condition under control and your discharge instructions will include directions for any medications you should take after leaving the hospital. Please make sure you see your Primary Care Provider as part of your follow up plan. Activity: As commented below Non-emergency contact: Primary Care Provider Call non-emergency contact if: you have any medication questions, your symptoms worsen, your pain is not controlled, your pain is worsening, your pain is unusual for you and you have a fever Follow-up/Referrals: Mesfin Howard [Primary Care Provider] - (Office will call patient with an appointment date and time) Diet: Heart Healthy and Low Fiber Addtl Attending Provider Instructions: You have been hospitalized for weakness/dizziness and found to be dehydrated likely from diarrhea from recent antibiotic use. Stool testing was POSITIVE for C DIFF infection and you were placed on ORAL vancomycin which has made improvements and diarrhea slowed and white count has normalized. We are continuing Vancomycin orally every SIX HOURS (four times daily) for a total of 10 days (minus the days received in the hospital). Please take as directed and alert primary care of any increased diarrhea/abdominal pain or fevers as sometimes we need an alternative agent for treatment but given this is the first occurrence and you have been improved on the vancomycin this has been continued. Your B12 level was not as low as priors but we did give injections x 2 and recommend continuing higher oral dose at discharge until primary care able to arrange for weekly injections. Your blood pressure was on the low side and I suspect your blood pressure medication with hydrochlorothiazide causes worse dehydration (as well as low potassium levels) and we have sent your LISINOPRIL medication BY ITSELF for the meantime to take IF NEEDED for elevated blood pressures at home but would recommend NOT taking this without checking your blood pressures as they have been well controlled off and you may need a little bit of a holiday prior to resuming but I would recommend you discussing this with primary care in follow up. We have attempted to get you a blood pressure cuff at discharge but if unable these can be purchased at [employer] and also can go into [employer] to have these checked as well with the machines in the store. Recommend you check your BP at home and keep a log to take with you to your fol low up appointment. Please follow up with primary care in the next 7-10 days to monitor your progress since discharge. Please return to the ER with any fevers/chills, worsening abdominal pain or for any symptoms concerning for you. It has been a pleasure being a part of the medical team providing for you while you have been in the hospital. Take care! Pending Studies at Discharge: No Stand-Alone Forms: [facility], Smoking Cessation Medications and DC Order Prescriptions: New vancomycin 125 mg capsule 125 mg PO Q6H 7 Days Qty: 30 0RF lisinopril 10 mg tablet 10 mg PO DAILY Qty: 30 0RF Continued simvastatin 20 mg tablet 20 mg PO DAILY finasteride 5 mg tablet 5 mg PO DAILY diclofenac sodium [Voltaren Arthritis Pain] 1 % Gel 2 g EXT QID Qty: 100 0RF cyanocobalamin (vitamin B-12) 1,000 mcg capsule 2,000 mcg PO DAILY Held lisinopril-hydrochlorothiazide 10-12.5 mg tablet 1 tab PO DAILY Hold Instructions: hold combination pill until discussed with primary care in follow up Discharge Orders: Discharge Order (Routine); Ordered 07/28/24 Ordered By: Anaya Murry Admission Data Admit Date/Time: 07/26/24 15:09 Attending Provider: Pelon Balbuena Admit Provider: Pelon Balbuena Primary Care Provider: Mesfin Howard Other Providers: Guicho Venegas; [facility] Fax Other Interventions: Discharge Summary Assessment (RN) Last Done: 07/28/24 10:52 Hospital Stay Data Consultations 07/25/24 11:29 ED Decision to Admit Stat Diagnostic Imagining Performed Chest X-Ray 07/25/24 08:51 XR chest 1V portable CLINICAL HISTORY: Shortness of breath. Weakness. COMPARISON STUDY: Chest radiograph July 04, 2024. FINDINGS: Mild elevation of the left hemidiaphragm is unchanged. There is no consolidation. Minimal left basilar opacity favors atelectasis. There is no pneumothorax or pleural effusion. Mild cardiomegaly is unchanged. Mediastinal contours are normal. There is no evidence for pulmonary edema. IMPRESSION: No acute cardiopulmonary findings. No change in appearance of the chest. ACT 112: Negative or not required by law. Electronically signed by: Donald Choi M.D. 07/25/2024 9:15 AM Abdomen/Pelvis CT 07/25/24 10:[address] WITH IV AND ORAL CONTRAST CT DOSE: 1079.3 mGy.cm HISTORY: Acute generalized abdominal pain Diarrhea, Leukocytosis TECHNIQUE: Multiaxial CT images of the abdomen and pelvis were performed following the IV administration of 94 cc of Optiray and oral contrast. A dose lowering technique was utilized adhering to the principles of ALARA. COMPARISON STUDY: CT abdomen and pelvis 07/13/2024, hepatobiliary scan 07/13/2024. FINDINGS: Study is mildly degraded by respiratory motion. Subcentimeter scott bpleural nodular foci of the lung bases are favored to be benign. Mild subsegmental bibasilar atelectasis. No pneumoperitoneum. Spleen measures 13.6 cm in length. Unremarkable pancreas and adrenal glands. Gallbladder wall thickening is noted without significant gallbladder distention or pericholecystic edema. Unremarkable liver. Patent portal vein. Unremarkable kidneys without hydronephrosis. Prostatomegaly. Distended urinary bladder with wall thickening. Atherosclerosis of the aorta without aneurysm. No lymphadenopathy. No bowel obstruction. Mild nonspecific distal esophageal wall thickening. Duodenal diverticulum. Colonic diverticulosis. Circumferential wall thickening is noted throughout the rectum and sigmoid also involving the distal descending colon. Adjacent inflammatory stranding with trace ascites. Normal appendix. No acute fracture. Subcutaneous edema lateral to the left greater trochanter measures up to approximately 6 cm in length. Findings are similar to prior and may represent bursitis versus contusion. IMPRESSION: 1. Findings compatible with a nonspecific proctocolitis extending from the distal descending to the rectum. 2. No bowel obstruction or pneumoperitoneum. 3. Colonic diverticulosis. 4. Prostamegaly with evidence of chronic outlet obstruction. 5. There is mild nonspecific wall thickening of the gallbladder without significant gallbladder distention or pericholecystic inflammation to suggest acute cholecystitis. 6. Additional findings as above. ACT 112: Negative or not required by law. The above report was generated using voice recognition software. It may contain grammatical, syntax or spelling errors. Electronically signed by: Raymond Hinton M.D. 07/25/2024 1:23 PM KUB X-Ray 07/27/24 07:00 EXAM: XR KUB/Abdomen 1 view CLINICAL HISTORY: +CDIFF KAB [facility] TECHNIQUE: X-ray images of the abdomen were obtained in AP position COMPARISON: 07/25/2024 FINDINGS: Gas Pattern: Gas pattern within the abdomen is normal. No evidence of bowel obstruction or distention. Soft Tissues: Bilateral psoas shadows are normal. Soft tissues of the abdomen appear normal without evidence of masses or calcifications. Liver and spleen are of normal size and position. Bones and joints: Bilateral degenerative changes in hip joints with joint space narrowing and sub-articular sclerosis. IMPRESSION: 1. No evidence of bowel obstruction or distention. 2. Bilateral degenerative changes in hip joints with joint space narrowing and sub-articular sclerosis. 3. No time interval changes. Electronically signed by Scottie Adams 07-27-2024 08:11 AM Pending Results Patient Have Any Pending Studies at Discharge: No Discharge Instructions Given to Patient (Per Discharging Provider) You have been hospitalized for weakness/dizziness and found to be dehydrated likely from diarrhea from recent antibiotic use. Stool testing was POSITIVE for C DIFF infection and you were placed on ORAL vancomycin which has made improvements and diarrhea slowed and white count has normalized. We are continuing Vancomycin orally every SIX HOURS (four times daily) for a total of 10 days (minus the days received in the hospital). Please take as directed and alert primary care of any increased diarrhea/abdominal pain or fevers as sometimes we need an alternative agent for treatment but given this is the first occurrence and you have been improved on the vancomycin this has been continued. Your B12 level was not as low as priors but we did give injections x 2 and recommend continuing higher oral dose at discharge until primary care able to arrange for weekly injections. Your blood pressure was on the low side and I suspect your blood pressure medication with hydrochlorothiazide causes worse dehydration (as well as low potassium levels) and we have sent your LISINOPRIL medication BY ITSELF for the meantime to take IF NEEDED for elevated blood pressures at home but would recommend NOT taking this without checking your blood pressures as they have been well controlled off and you may need a little bit of a holiday prior to resuming but I would recommend you discussing this with primary care in follow up. We have attempted to get you a blood pressure cuff at discharge but if unable these can be purchased at [employer] and also can go into [employer] to have these checked as well with the machines in the store. Recommend you check your BP at home and keep a log to take with you to your follow up appointment. Please follow up with primary care in the next 7-10 days to monitor your progress since discharge. Please return to the ER with any fevers/chills, worsening abdominal pain or for any symptoms concerning for you. It has been a pleasure being a part of the medical team providing for you while you have been in the hospital. Take care! Supervising Physician Co-Signing Physician Notes The patient was not seen by me. The chart was reviewed. Case discussed with SANJUANA Tran. Agree with assessment and plan Total Time Total Time Spent Total Time Spent (In Minutes): 40 Coding Level of Care Code 21039 INP/OBS DISCH >30 MIN Diagnoses C. difficile colitis A04.72 Dizziness R42 Leukocytosis D72.829 Hypokalemia E87.6 B12 deficiency E53.8 BPH (benign prostatic hyperplasia) N40.0 Hypotension I95.9
== END 2024-07-28 12:26 | disposition home or self-care (01) | DRG 373 ==
LOC: 3N 07:23 → ED 07:23 → SUATTDRO 11:40 → 3N 14:07

== ENCOUNTER 2025-08-01 15:56 | Inpatient (IN) ==
[2025-08-01 16:34] LABS: Hematocrit (blood only) 41.7 % (42.0-52.0); Hemoglobin 14.5 g/dL (14.0-18.0); Immature Granulocytes # (auto) 0.01 K/uL (0.01-0.20); Immature Granulocytes % (auto) 0.2 %; Mean Corpuscular Hemoglobin 31.1 pg (25.0-34.0); Mean Corpuscular Volume 89.5 fL (80.0-100.0); Platelet Count 186 K/uL (130-400); RDW Standard Deviation 41.5 fL (36.4-46.3); Red Blood Count 4.66 M/uL (4.70-6.10); White Blood Count 5.39 K/ul (4.8-10.8)
--- NOTE | 2025-08-01 16:38 | Emergency Department Note ---
History of Present Illness General Chief complaint: Abdominal Pain Stated complaint: ABD PAIN Time Seen by Provider: 08/01/25 16:15 History of Present Illness Maximum Pain Intensity: 5 Patient is a 75-year-old male with past medical history significant for dyslipidemia, hypertension, BPH and pernicious anemia who presents to the emergency department for evaluation of epigastric//right upper quadrant abdominal pain x 2 days. Symptoms have been present since Thursday morning. He noticed a constant, aching pain in the epigastric/right upper quadrant. It does not radiate through to his back or around to the right flank. There is been no associated nausea, vomiting, diarrhea, constipation or urinary symptoms, although he does admit to decreased appetite. He still eating normal foods. He has not tried taking anything nor doing anything for his symptoms. He denies any radiation into the chest, no chest pain or shortness of breath. He has had pain like this previously, when he was admitted to our facility for an infectious colitis about 6 months ago. He states that his pain has been constant for the last 2 days, but seemed to be a little more problematic after he ate lunch today consisting of a cheeseburger and rice. He currently rates his pain a 5/10. No history of abdominal surgeries. He has never had a colonoscopy. Home Medications Medication Instructions Recorded Confirmed Type finasteride 5 mg tablet 5 mg PO DAILY #90 tabs 06/20/25 08/01/25 Rx lisinopril 10 mg tablet 10 mg PO DAILY #90 tabs 06/20/25 08/01/25 Rx mecobalamin (vitamin B12) 5,000 5,000 mcg PO .Every other day #42 06/20/25 08/01/25 Rx mcg chewable tablet tabs simvastatin 20 mg tablet 20 mg PO DAILY #90 tabs 06/20/25 08/01/25 Rx Allergies Allergy/AdvReac Type Severity Reaction Status Date / Time No Known Allergies Allergy Verified 06/20/25 13:12 Past Med/Surg History Problem List Acute cholecystitis (Acute) Pernicious anemia Benign essential hypertension HLD (hyperlipidemia) C. difficile colitis BPH (benign prostatic hyperplasia) Medical History No pertinent family history HTN (hypertension) Surgical History No pertinent past surgical history Family History Mother Heart disease Diabetes Social History Smoking Status: Never smoker Do You Dip or Chew Tobacco: No; Hx Alcohol Use: No Hx Substance Use: No Preferred Language: Senegalese Communication Ability: Effective Dry Pan Charger Required: No Beliefs That Will Affect Care: None marital status: Single Current Living Situation: Alone current occupational status: retired How many Children do You have: 0 Feels Safe at Home: Yes Diet: regular during the past year weight has: decreased > 10 lbs Seatbelt Use: always Assistive Devices: Cane and Walker Review of Systems A total of 10 systems reviewed and were otherwise negative Physical Exam Vital Signs Vital Signs - 24 hr 08/01/25 15:58 08/01/25 17:23 08/01/25 17:23 Temperature 36.2 C L Temperature Source Temporal Artery Scan Pulse Rate 93 H 70 Pulse Rate [Apical] 70 Respiratory Rate 18 16 16 Respiratory Effort / Characteristics Non-Labored Spontaneous Non-Labored Spontaneous Respiratory Depth Normal Respiratory Pattern Regular Blood Pressure 113/65 Blood Pressure [Left Arm] 144/94 H Blood Pressure Mean 81 Blood Pressure Mean [Left Arm] 110 Pulse Oximetry 95 96 96 Oxygen Delivery Method Room Air Room Air Room Air Sepsis Recent Fever Within 48 Hours No Sepsis New/Unexplained Change in Mental Status No Sepsis Action Taken by Nursing No Action Required 08/01/25 17:58 08/01/25 18:22 08/01/25 19:00 Temperature Temperature Source Pulse Rate 63 63 Pulse Rate [Apical] 64 Respiratory Rate 19 17 Respiratory Effort / Characteristics Non-Labored Spontaneous Respiratory Depth Normal Respiratory Pattern Regular Blood Pressure 151/94 H Blood Pressure [Left Arm] 156/99 H Blood Pressure Mean 113 Blood Pressure Mean [Left Arm] 118 Pulse Oximetry 97 96 Oxygen Delivery Method Room Air Sepsis Recent Fever Within 48 Hours Sepsis New/Unexplained Change in Mental Status Sepsis Action Taken by Nursing 08/01/25 19:30 08/01/25 20:00 08/01/25 20:30 Temperature Temperature Source Pulse Rate 59 L 66 70 Pulse Rate [Apical] Respiratory Rate 17 23 17 Respiratory Effort / Characteristics Respiratory Depth Respiratory Pattern Blood Pressure 133/83 148/88 H 132/83 Blood Pressure [Left Arm] Blood Pressure Mean 99 108 99 Blood Pressure Mean [Left Arm] Pulse Oximetry 97 93 93 Oxygen Delivery Method Sepsis Recent Fever Within 48 Hours Sepsis New/Unexplained Change in Mental Status Sepsis Action Taken by Nursing 08/01/25 21:00 08/01/25 21:30 Temperature Temperature Source Pulse Rate 88 81 Pulse Rate [Apical] Respiratory Rate 22 18 Respiratory Effort / Characteristics Respiratory Depth Respiratory Pattern Blood Pressure 136/80 136/88 Blood Pressure [Left Arm] Blood Pressure Mean 98 104 Blood Pressure Mean [Left Arm] Pulse Oximetry 93 93 Oxygen Delivery Method Sepsis Recent Fever Within 48 Hours Sepsis New/Unexplained Change in Mental Status Sepsis Action Taken by Nursing CONSTITUTIONAL: Patient is a well-appearing, mildly uncomfortable 75-year-old male who is awake and alert and in no acute distress. Since EYES: Pupils equal, round, reactive to light and accommodation. EOMs intact without nystagmus. Sclera are anicteric. CARDIOVASCULAR: Regular rate and rhythm Peripheral pulses easily palpable. RESPIRATORY: Breath sounds equal and clear to auscultation. ABDOMEN: Bowel sounds are present. The abdomen is soft, nondistended, nontender to percussion, but tender to palpation in the epigastric and the right upper quadrant, with mild guarding. No pain in the right lower quadrant. No CVA tenderness. INTEGUMENTARY: No lesions or rash, normal skin turgor. LYMPH: No lymphadenopathy. Course Course The patient was seen and assessed as above. External medical records are reviewed. He presents to the emergency department for evaluation of upper abdominal pain x 2 days. IV lock was initiated. Laboratory studies collected. EKG, chest x-ray and gallbladder ultrasound were performed. Patient refused any medication for discomfort when initially asked. Diagnostics, as interpreted by me: Laboratory studies: Normal white count at 5300. H&H 14.5 and 41.4, normal platelet count. No electrolyte imbalance, JACKELINE or transaminitis. Lipase is not elevated. Troponin is not elevated. Urinalysis is clear. ECG: Normal sinus rhythm 72 bpm, left bundle branch block, which is old, noted on EKG from July 2024. No other acute ischemic changes. Cardiac monitoring: An order was placed for continuous cardiac monitoring. The monitor shows a NSR at a rate of 63 per my interpretation. Imaging studies: Chest x-ray clear, gallbladder ultrasound notes distended gallbladder with sludge, diffuse wall thickening and pericholecystic fluid concerning for acute cholecystitis. No ductal dilatation. All laboratory and diagnostic imaging studies reviewed with attending physician, Dr. Martin. Consultation placed with Dr. Townsend with general surgery. 2 g of Mefoxin ordered at surgery's request. Patient was reassessed. Laboratory and diagnostic imaging studies were reviewed with him. Plan for evaluation by surgery discussed. He is agreeable. He does admit he is a bit more uncomfortable, and is now agreeable to something for pain. He was given morphine 4 mg and Zofran 4 mg IV. student financial aid manager was notified of the plan. Patient was seen in the ED by the general surgery team, and plan is for the OR later this evening. The patient remained stable in the ED pending surgical intervention. Chronic conditions affecting care: Pernicious anemia, hypertension, dyslipidemia, BPH Differential diagnosis: GERD, gastritis, esophagitis, peptic ulcer disease, infectious versus inflammatory colitis/enteritis, foodborne illness, biliary pathology, bowel obstruction, perforation, abscess, mass or malignancy, electrolyte or metabolic abnormality, dehydration, among others. Administered Medications Sodium Chloride (Nss) 1,000 mls @ 125 mls/hr IV .Q8H SANGEETHA Stop: 08/04/25 19:44 Last Admin: 08/01/25 20:15 Dose: 125 mls/hr Documented By: darvin Discontinued Medications Cefoxitin Sodium (Mefoxin) 2,000 mg in 60 mls @ 100 mls/hr IV NOW STA Stop: 08/01/25 18:32 Last Infusion: 08/01/25 19:00 Dose: Infused Documented By: darvin Admin: 08/01/25 18:22 Dose: 100 mls/hr Documented By: darvin Morphine Sulfate (Morphine Sulfate 4 Mg/Ml 1 Ml Carp\Vial) 4 mg IV NOW STA Stop: 08/01/25 18:11 Last Admin: 08/01/25 18:25 Dose: 4 mg Documented By: darvin Ondansetron HCl (Ondansetron Inj 2 Mg/Ml 2 Ml Vial) 4 mg IV NOW STA Stop: 08/01/25 18:11 Last Admin: 08/01/25 18:24 Dose: 4 mg Documented By: darvin Medical Decision Making Differential Diagnosis See ED course. Medical Records Attestation: I reviewed the patient's medical records. Home Medications Current Medication List: was personally reviewed by me Laboratory Data Attestation: I reviewed the patient's lab results. 08/01/25 Unknown 08/01/25 Unknown Lab Results 08/01/25 Range/Units Unknown WBC 5.39 (4.8-10.8) K/ul RBC 4.66 L (4.70-6.10) M/uL Hgb 14.5 (14.0-18.0) g/dL Hct 41.7 L (42.0-52.0) % MCV 89.5 (80.0-100.0) fL MCH 31.1 (25.0-34.0) pg MCHC 34.8 (32.0-36.0) g/dL RDW Std Deviation 41.5 (36.4-46.3) fL RDW Coeff of Valerie 12.6 (11.5-14.5) % Plt Count 186 (130-400) K/uL MPV 10.0 (9.4-12.4) fL Immature Gran % (Auto) 0.2 % Neut % (Auto) 57.7 % Lymph % (Auto) 28.8 % [place] % (Auto) 11.1 % Eos % (Auto) 1.3 % Baso % (Auto) 0.9 % Neut # (Auto) 3.11 (1.40-6.50) K/uL Lymph # (Auto) 1.55 (1.20-3.40) K/uL [place] # (Auto) 0.60 H (0.11-0.59) K/uL Eos # (Auto) 0.07 (0.00-0.50) K/uL Baso # (Auto) 0.05 (0.00-0.20) K/uL Immature Gran # (Auto) 0.01 (0.01-0.20) K/uL Sodium 136 (136-145) mmol/L Potassium 3.5 (3.5-5.1) mmol/L Chloride 101 (98-107) mmol/L Carbon Dioxide 27 (21-32) mmol/L Anion Gap 8 (3-11) BUN 15 (6-23) mg/dl Creatinine 1.03 (0.6-1.4) mg/dl Est Cr Clr Drug Dosing 61.9 ml/min eGFR 76.23 BUN/Creatinine Ratio 14.6 (10-20) Glucose 160 H (70-99(Fasting)) mg/dl Calcium 9.3 (8.6-10.3) mg/dl Total Bilirubin 0.9 (0.2-1.0) mg/dl AST 21 (13-39) U/L ALT 18 (7-52) U/L Alkaline Phosphatase 55 (34-104) U/L Troponin I High Sens 6.2 (0-20) pg/ml Total Protein 7.1 (6.0-8.3) gm/dl Albumin 4.7 (3.4-5.0) gm/dl Globulin 2.4 L (2.5-4.0) gm/dl Albumin/Globulin Ratio 2.0 (0.9-2) Lipase 42 (11-82) U/L Urine Color Yellow Urine Appearance Clear (Clear) Urine pH 6.5 (4.5-7.5) Ur Specific [place] 1.017 (1.000-1.030) Urine Protein Negative (Negative) Urine Glucose (UA) Negative (Negative) Urine Ketones Negative (Negative) Urine Blood Negative (Negative) Urine Nitrite Negative (Negative) Urine Bilirubin Negative (Negative) Urine Urobilinogen Negative (Negative) Ur Leukocyte Esterase Negative (Negative) Urine Comment Imaging Data Attestation: I personally reviewed and interpreted this imaging study as follows: Radiologist's Impression: Chest X-Ray 08/01/25 16:31 Chest radiograph, one view History: Chest pain Comparison: None Findings: Single AP view of the chest performed. No focal consolidation or pleural effusion. No pneumothorax. The cardiomediastinal silhouette is within normal limits. Normal pulmonary vascularity. No evidence for lymphadenopathy. No visualized bony or soft tissue abnormality. Impression: Normal chest radiograph Electronically signed by Shaun Concepcion 08-01-2025 5:43 PM Gallbladder Ultrasound 08/01/25 16:31 EXAM: Ultrasound gallbladder CLINICAL HISTORY: Epigastric pain x 2 days TECHNIQUE: Ultrasound interrogation of the abdomen was performed with grayscale and color Doppler imaging. PRIORS: 07/13/2024 FINDINGS: The liver is normal in size and configuration. Echogenic liver parenchyma demonstrated focal fatty sparing at the gallbladder fossa. No intrahepatic ductal dilatation. No hepatic mass. Hepatopetal flow in the main portal vein is normal. The gallbladder is distended with sludge. No discrete gallstones identified. Wall thickening noted, measuring approximately 3.8 mm, with focal pericholecystic fluid. Sonographic Mora sign was elicited. The common bile duct measures 5 mm, normal. Right kidney has a normal appearance with no hydronephrosis. IMPRESSION: Distended gallbladder with sludge in the lumen, mild diffuse wall thickening, focal pericholecystic fluid and a sonographic Mora sign. In the setting of epigastric pain for 2 days, findings suggestive ofCholecystitis. Surgical consultation and/or HIDA scan could be considered if appropriate. ACT 112: Positive. There are findings on this examination that require communication between the performing entity and the patient following Patient Test Result Information Act ([place] ACT 112) guidelines. Electronically signed by Kathe Krishnamurthy 08-01-2025 5:43 PM MDM Narrative See ED course. Impression & Plan Acute cholecystitis Discharge Plan Visit Data Chief Complaint: Abdominal Pain Stated Complaint: ABD PAIN ED Provider: Lobito Martin ED Midlevel Provider: Leah Horn Discharge Problem: Acute cholecystitis Patient Disposition: Home - Self-Care Condition: Fair Forms Stand Alone Forms: [facility], Important Visit Information Prescriptions Prescriptions: No Action lisinopril 10 mg tablet 10 mg PO DAILY Qty: 90 1RF finasteride 5 mg tablet 5 mg PO DAILY Qty: 90 1RF simvastatin 20 mg tablet 20 mg PO DAILY Qty: 90 1RF mecobalamin (vitamin B12) 5,000 mcg tablet,chewable 5,000 mcg PO .Every other day Qty: 42 3RF Referrals Referrals: Seth Galloway DO [Primary Care Provider] -
[2025-08-01 16:52] LABS: Alanine Aminotransferase 18.0 U/L (7-52); Albumin Globulin Ratio 2.0 (0.9-2); Albumin Level 4.7 gm/dl (3.4-5.0); Alkaline Phosphatase 55.0 U/L (34-104); Anion Gap 8.0 (3-11); Bilirubin,Total 0.9 mg/dl (0.2-1.0); Blood Urea Nitrogen 15.0 mg/dl (6-23); Calcium 9.3 mg/dl (8.6-10.3); Carbon Dioxide 27.0 mmol/L (21-32); Chloride 101.0 mmol/L (98-107); Creatinine Clr Calc Pharmacy 61.9 ml/min; Globulin 2.4 gm/dl (2.5-4.0); Glucose 160.0 mg/dl (70-99(Fasting)); Lipase 42.0 U/L (11-82); Potassium 3.5 mmol/L (3.5-5.1); Sodium 136.0 mmol/L (136-145); Total Protein 7.1 gm/dl (6.0-8.3)
--- NOTE | 2025-08-01 17:43 | XRay Report ---
Chest radiograph, one view History: Chest pain Comparison: None Findings: Single AP view of the chest performed. No focal consolidation or pleural effusion. No pneumothorax. The cardiomediastinal silhouette is within normal limits. Normal pulmonary vascularity. No evidence for lymphadenopathy. No visualized bony or soft tissue abnormality. Impression: Normal chest radiograph Electronically signed by Shaun Concepcion 08-01-2025 5:43 PM
--- NOTE | 2025-08-01 17:43 | Ultrasound Report ---
EXAM: Ultrasound gallbladder CLINICAL HISTORY: Epigastric pain x 2 days TECHNIQUE: Ultrasound interrogation of the abdomen was performed with grayscale and color Doppler imaging. PRIORS: 07/13/2024 FINDINGS: The liver is normal in size and configuration. Echogenic liver parenchyma demonstrated focal fatty sparing at the gallbladder fossa. No intrahepatic ductal dilatation. No hepatic mass. Hepatopetal flow in the main portal vein is normal. The gallbladder is distended with sludge. No discrete gallstones identified. Wall thickening noted, measuring approximately 3.8 mm, with focal pericholecystic fluid. Sonographic Mora sign was elicited. The common bile duct measures 5 mm, normal. Right kidney has a normal appearance with no hydronephrosis. IMPRESSION: Distended gallbladder with sludge in the lumen, mild diffuse wall thickening, focal pericholecystic fluid and a sonographic Mora sign. In the setting of epigastric pain for 2 days, findings suggestive ofCholecystitis. Surgical consultation and/or HIDA scan could be considered if appropriate. ACT 112: Positive. There are findings on this examination that require communication between the performing entity and the patient following Patient Test Result Information Act ([place] ACT 112) guidelines. Electronically signed by Kathe Krishnamurthy 08-01-2025 5:43 PM
[2025-08-01 17:57] LABS: Appearance Urine Clear (Clear); Glucose Urine UA Negative (Negative)
--- NOTE | 2025-08-01 18:10 | Emergency Department Note ---
ED Visit Note I was consulted by the Advanced Practice Provider. I personally made/approved the management plan and take responsibility for the patient management. This includes the aspects of: -History/Physical -MDM
[2025-08-01] MEDS: cefOXitin 2,000 MG/60 ML BAG IV STA (18:22)
[2025-08-01] MEDS: ONDANSETRON INJ 2 MG/ML 2 ML VIAL IV STA (18:24)
[2025-08-01] MEDS: MoRPHine SULFATE 4 MG/ML 1 ML CARP\\VIAL IV STA (18:25)
--- NOTE | 2025-08-01 19:37 | History & Physical Report ---
Date of Service August 01, 2025 Assessment & Plan (1) Acute cholecystitis: Plan Patient is a 76-year-old male with past medical history significant for hypertension, hyperlipidemia, and BPH, with epigastric abdominal pain for last 3 days and ultrasound evidence of gallbladder wall thickening and sludge and a positive sonographic Mora sign consistent with acute cholecystitis. Plan to proceed to the operating room tonight for a laparoscopic, possible open cholecystectomy. Will start Zosyn now in the ER for empiric coverage for cholecystitis, IV pain medication, IV fluids, keep n.p.o., Zofran for nausea, activity as tolerated. As above. Clinical history and exam consistent with acute cholecystitis. Pain is quite exquisite and has been there for 2 days. Discussed the risks which include bleeding, infection, injury to a bile duct or other organ, DVT, PE, PA, CVA etc. I have answered all his questions. We will proceed this evening with laparoscopic cholecystectomy. History of Present Illness Chief Complaint: epigastric abd pain x 3 days Primary Care Provider: Seth Galloway DO Patient is a 75-year-old male with a past medical history significant for hypertension, hyperlipidemia, and BPH, who presents to [facility] emergency department complaining of epigastric abdominal pain x 3 days. Patient states that his abdominal pain began 3 days ago, was initially severe, described as sharp and stabbing, with no radiation, and no obvious aggravating or relieving factors. Patient states that this pain woke him from sleeping and persisted through the night, however the following morning had nearly resolved, and he had a dull ache throughout the day. Then today, after lunch eating a cheeseburger he then had recurrence of this epigastric abdominal pain that was very severe and so he came to the emergency department for evaluation. He denies any nausea or vomiting, no constipation or diarrhea, no fevers or chills, no shortness of breath or dyspnea. Patient was evaluated in the emergency department and was hemodynamically stable and afebrile. His labs were relatively unremarkable, his white blood cell count was normal at 5.39 and his LFTs were all within normal limits. He had an abdominal ultrasound that showed a distended gallbladder with wall thickening and sludge as well as a sonographic Mora sign concerning for acute cholecystitis, so general surgery was consulted. Allergies Allergy/AdvReac Type Severity Reaction Status Date / Time No Known Allergies Allergy Verified 06/20/25 13:12 Home Medications Medication Instructions Recorded Confirmed Type finasteride 5 mg tablet 5 mg PO DAILY #90 tabs 06/20/25 08/01/25 Rx lisinopril 10 mg tablet 10 mg PO DAILY #90 tabs 06/20/25 08/01/25 Rx mecobalamin (vitamin B12) 5,000 5,000 mcg PO .Every other day #42 06/20/25 08/01/25 Rx mcg chewable tablet tabs simvastatin 20 mg tablet 20 mg PO DAILY #90 tabs 06/20/25 08/01/25 Rx Past Med/Surg History Problem List Acute cholecystitis (Acute) Pernicious anemia Benign essential hypertension HLD (hyperlipidemia) C. difficile colitis BPH (benign prostatic hyperplasia) Medical History No pertinent family history HTN (hypertension) Surgical History No pertinent past surgical history Family History Mother Heart disease Diabetes Social History Smoking Status: Never smoker Do You Dip or Chew Tobacco: No; Hx Alcohol Use: No Hx Substance Use: No Preferred Language: Burkinan Communication Ability: Effective Combine Mechanic Required: No Beliefs That Will Affect Care: None marital status: Single Current Living Situation: Alone current occupational status: retired How many Children do You have: 0 Feels Safe at Home: Yes Diet: regular during the past year weight has: decreased > 10 lbs Seatbelt Use: always Assistive Devices: Cane and Walker Review of Systems Review of Systems: All systems reviewed & are unremarkable except as noted in HPI & below Physical Exam Physical Exam: Gen: Awake and alert, resting comfortably in bed in NAD CV: RRR PULM: non-labored breathing Abd: Abd soft, mildly distended, with tenderness to palpation to the epigastric area and right upper quadrant and a positive Mora sign. ext: no edema to bilateral lower ext, SCDs in place, non-tender, feet warm and well perfusted Results & Data Results & Data Vital Signs (Past 12 Hours) Vital Signs Temp Pulse Pulse Resp BP BP Pulse Ox 08/01/25 19:00 63 17 151/94 H 96 08/01/25 18:22 64 19 156/99 H 97 08/01/25 17:58 63 08/01/25 17:23 70 16 144/94 H 96 08/01/25 17:23 70 16 96 08/01/25 15:58 36.2 C L 93 H 18 113/65 95 O2 Del Method 08/01/25 19:00 08/01/25 18:22 Room Air 08/01/25 17:58 08/01/25 17:23 Room Air 08/01/25 17:23 Room Air 08/01/25 15:58 Room Air Diagnostic Findings Abdominal ultrasound: IMPRESSION: Distended gallbladder with sludge in the lumen, mild diffuse wall thickening, focal pericholecystic fluid and a sonographic Mora sign. In the setting of epigastric pain for 2 days, findings suggestive ofCholecystitis. Surgical consultation and/or HIDA scan could be considered if appropriate. CBC Results Results Complete Blood Count Results: RBC 4.66 M/uL (4.70-6.10) L 08/01/25 WBC 5.39 K/ul (4.8-10.8) 08/01/25 Hgb 14.5 g/dL (14.0-18.0) 08/01/25 Hct 41.7 % (42.0-52.0) L 08/01/25 Plt Count 186 K/uL (130-400) 08/01/25 PG Care Time/CCT Total # of Minutes Spent Total Time Spent with Patient: Total time spent is greater than 50% in coordination of care (as documented) at patient's floor/unit and/or counseling patient: [place] [address] INT INP/OBS CARE 1/40MIN Patient Type New Medical Decision Making High Complexity Diagnoses Acute cholecystitis K81.0
[2025-08-01] MEDS ORDERED: ONDANSETRON INJ 2 MG/ML 2 ML VIAL IV PRN ×2 (19:39→22:02)
[2025-08-01] MEDS: SODIUM CHLORIDE 0.9% 1,000 ML IV SCH (20:15)
[2025-08-01] MEDS ORDERED: ATROPINE SULFATE 0.1 MG/ML 10ML SYR IV PRN (22:02)
[2025-08-01] MEDS ORDERED: PROMETHAZINE HCL 6.25 MG in SODIUM CHLORIDE 0.9% 50 ML IV PRN (22:02)
[2025-08-01] MEDS ORDERED: DEXAMETHASONE SOD INJ 4 MG/ML VIAL ONE (22:03)
[2025-08-01] MEDS ORDERED: ONDANSETRON INJ 2 MG/ML 2 ML VIAL ONE (22:03)
[2025-08-01] MEDS ORDERED: LIDOCAINE 2% 2 ML VIAL/AMP(20MG/ML) INFIL ONE (22:03)
[2025-08-01] MEDS ORDERED: PROPOFOL IV EMULSION 10 MG/ML 20 ML VIAL IV ONE (22:03)
--- NOTE | 2025-08-01 22:03 | Anesthesiology Consultation ---
Date of Service August 01, 2025 Assessment & Plan Chart Review Chart Review: Acceptable Risk for Surgery and Patient NOT seen in Pre Admission Testing Consults Requested none ASA ASA2 Proposed Anesthesia Anesthesia Type: General Risk / Benefits Reviewed With: PT / POA / Parent / Guardian, Accepts Plan and Informed Consent Obtained History Surgery Operation Date: 08/01/25 21:30 Proposed Procedures p Laparoscopic Cholecystectomy - Shane Townsend, DO Height/Weight Height: 6 ft Weight: 69.6 kg Allergies Allergy/AdvReac Type Severity Reaction Status Date / Time No Known Allergies Allergy Verified 06/20/25 13:12 Medications Home Medications Medication Instructions Recorded Confirmed Last Taken finasteride 5 mg tablet 5 mg PO DAILY #90 tabs 06/20/25 08/01/25 Unknown lisinopril 10 mg tablet 10 mg PO DAILY #90 tabs 06/20/25 08/01/25 Unknown mecobalamin (vitamin B12) 5,000 5,000 mcg PO .Every other day #42 06/20/25 08/01/25 Unknown mcg chewable tablet tabs simvastatin 20 mg tablet 20 mg PO DAILY #90 tabs 06/20/25 08/01/25 Unknown Active Medications Generic Name Dose Route Start Last Admin Trade Name Freq PRN Reason Stop Dose Admin Sodium Chloride 1,000 mls @ 125 mls/hr 08/01/25 19:45 08/01/25 20:15 Nss IV 08/04/25 19:44 125 mls/hr .Q8H SANGEETHA Administration NPO Date Last Intake of Fluids: 08/01/25 Time Last Intake of Fluids: 12:00 Date Last Intake of Solids: 08/01/25 Time Last Intake of Solids: 12:00 Past Medical History Medical History No pertinent family history HTN (hypertension) Exercise / Class Metabolic Activity II 4-5 Yardwork/Stairs/Walk up hill Past Family History Family History Mother Heart disease Diabetes Past Surgical History Surgical History No pertinent past surgical history Past Anesthesia History No Hx of Anesthesia Complications and No Family Hx of Anesthesia Complications History of PONV No Hx of PONV and No Hx of Motion Sickness Social History Smoking Status: Never smoker Do You Dip or Chew Tobacco: No Hx Alcohol Use: No Hx Substance Use: No substance use type: does not use Physical Exam Vital Signs Last Vital Signs Temp 36.2 C L 08/01/25 15:58 Pulse 81 08/01/25 21:30 Resp 18 08/01/25 21:30 BP 136/88 08/01/25 21:30 Pulse Ox 93 08/01/25 21:30 O2 Del Method Room Air 08/01/25 18:22 ENMT Mouth: no dentition abnormality Thyromental Distance: > or= 3.5 Finger Breadths Mallampati Class: II Neck normal visual inspection Respiratory normal respiratory effort Auscultation: lungs clear to auscultation bilaterally Cardiovascular Rate/Rhythm: regular rate and regular rhythm Psychiatric Orientation: alert Testing Laboratory Results 08/01/25 Unknown 08/01/25 Unknown Urine Color Yellow 08/01/25 Unknown Urine Appearance Clear (Clear) 08/01/25 Unknown Urine pH 6.5 (4.5-7.5) 08/01/25 Unknown Ur Specific [place] 1.017 (1.000-1.030) 08/01/25 Unknown Urine Protein Negative (Negative) 08/01/25 Unknown Urine Glucose (UA) Negative (Negative) 08/01/25 Unknown Urine Ketones Negative (Negative) 08/01/25 Unknown Urine Nitrite Negative (Negative) 08/01/25 Unknown Ur Leukocyte Esterase Negative (Negative) 08/01/25 Unknown
[2025-08-01] MEDS ORDERED: ROCURONIUM BROMIDE 10 MG/ML 5 ML VIAL IV ONE (22:04)
[2025-08-01] MEDS ORDERED: PHENYLEPHRINE HCL 10 MG/ML VIAL ONE (22:36)
[2025-08-01] MEDS ORDERED: KETOROLAC 30 MG/ML VIAL ONE (22:59)
[2025-08-01] MEDS ORDERED: SUGAMMADEX SODIUM 200 MG/2 ML VIAL IV ONE (22:59)
[2025-08-01] MEDS: BUPIVACAINE/EPINEPHRINE 0.5% MPF 1:200,000 30 ML VIAL ONE (23:13)
--- NOTE | 2025-08-01 23:18 | Operative Report ---
PG Post Operative Report Pre & Post Diagnosis Operation Date: 08/01/25 21:30 Pre-Op Diagnosis: Acute cholecystitis Post-Op Diagnosis: Acute cholecystitis I identified the patient and participated in the time-out.: Yes Procedure Operation Date: 08/01/25 21:30 Actual Procedures p Laparoscopic Cholecystectomy(Not Applicable) - Shane Townsend DO Surgeon Shane Townsend DO Collections Director Emilia Mendezpa-c Estimated Blood Loss 50 Findings Consistent with Post-Op Diagnosis Specimens gallbladder Description of Procedure After informed consent was obtained the patient was taken to the operating room and placed in the supine position. After successful intubation the abdomen was sterilely prepped and draped in usual fashion. A periumbilical incision was made with an 11 blade scalpel and carried down through the soft tissue using electrocautery. The anterior rectus fascia was opened using electrocautery and 2 #0 Vicryl stay sutures were placed. The peritoneum was elevated with hemostats and incised under direct vision using Metzenbaum scissors. A finger sweep was performed and a 12 mm Rosa trocar was placed. The abdomen was insufflated to 18 mmHg. The laparoscope was inserted and the abdomen was examined in 360. No gross abnormalities were identified. A subxiphoid 12 mm port and 2 right upper quadrant 5 mm ports were placed under direct vision. The patient was placed in a reverse Trendelenburg position and slightly airplaned to the left. The gallbladder was acutely inflamed. This made grasping it difficult. I used a gallbladder needle to drain what would be clear bile. Once this was accomplished, the gallbladder was grasped and elevated superiorly and laterally. A [place] dissector was used to take down adhesions around the neck of the gallbladder. The cystic duct was identified and skeletonized. It was clipped twice proximally and once distally and transected using a laparoscopic scissor. In similar fashion the cystic artery was identified and skeletonized clipped and divided. The gallbladder was removed from the gallbladder fossa with electrocautery. It was placed into an Endo Catch bag. Thorough irrigation was performed. At the end of the procedure there was adequate hemostasis and no evidence of any bile leaks. A final look around the abdomen showed no other abnormalities. The gallbladder and trochars were all removed and the abdomen was desufflated. The fascia of the camera port was closed using 0 Vicryl in a [id number] fashion. Once we did this the subxiphoid incision continued to bleed. I held pressure for several minutes and it continued to bleed and I was unable to identify the source. We therefore reinserted the Rosa trocar and camera and re-insufflated the abdomen. We suctioned out a small amount of blood in the right upper quadrant. We looked up at the insertion site of the subxiphoid trocar and there was no obvious source of bleeding. We removed the trocar and desufflated the abdomen a second time. I reclosed the fascia using 0 Vicryl in a [id number]. All the wounds were irrigated and closed using 4- 0 Monocryl. Marcaine was injected around them for postoperative analgesia and skin glue used as a dressing. The patient was awaken extubated and transferred to recovery in stable condition. My physician's political science research assistant was present throughout the entire case... helped with prepping the patient. With exposure for trocar placement, as well as retracted the gallbladder throughout the case and also assisted with wound closure and dressing placement. I attest to the content of the Intraoperative Record and any orders documented therein. Any exceptions are noted below.
[2025-08-01] MEDS ORDERED: HYDROmorphone INJ 1 MG/ML SYRINGE ONE (23:27)
--- NOTE | 2025-08-01 23:43 | Anesthesiology Progress Note ---
Date of Service August 01, 2025 Anesthesia Post Procedure Vital Signs Vital Signs: Temp Pulse Pulse Resp BP BP Pulse Ox 08/01/25 21:30 81 18 136/88 93 08/01/25 21:00 88 22 136/80 93 08/01/25 20:30 70 17 132/83 93 08/01/25 20:00 66 23 148/88 H 93 08/01/25 19:30 59 L 17 133/83 97 08/01/25 19:00 63 17 151/94 H 96 08/01/25 18:22 64 19 156/99 H 97 08/01/25 17:58 63 08/01/25 17:23 70 16 144/94 H 96 08/01/25 17:23 70 16 96 08/01/25 15:58 36.2 C L 93 H 18 113/65 95 O2 Del Method 08/01/25 21:30 08/01/25 21:00 08/01/25 20:30 08/01/25 20:00 08/01/25 19:30 08/01/25 19:00 08/01/25 18:22 Room Air 08/01/25 17:58 08/01/25 17:23 Room Air 08/01/25 17:23 Room Air 08/01/25 15:58 Room Air Transfer of Care Handoff Completed per policy Notes Mental Status: alert / awake / arousable Patient Amnestic to Procedure: Yes Nausea / Vomiting: adequately controlled Pain: adequately controlled Airway Patency, RR, SpO2: stable & adequate BP & HR: stable & adequate Hydration State: stable & adequate Anesthetic Complications: no major complications apparent
[2025-08-02] MEDS: cefOXitin 2,000 MG in DEXTROSE 5 % MINI-B 50 ML IV SCH (00:57)
[2025-08-02] MEDS: ACETAMINOPHEN 1,000 MG/100 ML VIAL IV PRN (05:41)
[2025-08-02 06:10] LABS: Hematocrit (blood only) 40.1 % (42.0-52.0); Hemoglobin 14.0 g/dL (14.0-18.0); Immature Granulocytes # (auto) 0.05 K/uL (0.01-0.20); Immature Granulocytes % (auto) 0.4 %; Mean Corpuscular Hemoglobin 31.1 pg (25.0-34.0); Mean Corpuscular Volume 89.1 fL (80.0-100.0); Platelet Count 173 K/uL (130-400); RDW Standard Deviation 40.8 fL (36.4-46.3); Red Blood Count 4.50 M/uL (4.70-6.10); White Blood Count 13.49 K/ul (4.8-10.8)
[2025-08-02 07:46] VITALS: RESP 16; O2SAT 94
[2025-08-02] MEDS: MoRPHine SULFATE 4 MG/ML 1 ML CARP\\VIAL IV PRN (08:32)
[2025-08-02] MEDS: FINASTERIDE 5 MG TAB PO SCH (08:34)
[2025-08-02] MEDS: SIMVASTATIN 20 MG TAB PO SCH (08:35)
--- NOTE | 2025-08-02 10:47 | Surgery Progress Note ---
Date of Service August 02, 2025 Assessment & Plan (1) Acute cholecystitis: Plan: POD#1 lap karime WBC 13.4, Hbg 14. vitals stable post op discomfort noted, will add oral standing tylenol and add oral oxycodone into his pain regimen advance diet as tolerates encourage ambulation, oob will check up on patient after lunch, if feels better and ready for discharge will send home f/u in the office with dr. winston in 1-2 weeks Admission and Anticipated Discharge Date Admission Date: August 01, 2025 Subjective Patient reports some upper/right sided abdominal pain and bloating. Some burping. Pain is worse with movement but feels okay at rest. Tolerating clears, no nausea/vomiting. Physical Exam Physical Exam: awake/alert, no distress Gastrointestinal (Abdomen): Inspection/Auscultation: + abdomen distended and + abdominal surgical incision (c/d/i with dermabond ) Percussion/Palpation: + abdomen tender (expected post op discomfort, worse in RUQ) and abdomen soft Results & Data Vital Signs (Past 12 Hours) Vital Signs Temp Pulse Pulse Resp BP Pulse Ox O2 Del Method 08/02/25 07:43 97.9 F 79 16 110/96 94 Room Air 08/02/25 03:12 97.5 F L 81 18 111/68 95 Room Air 08/02/25 02:15 97.5 F L 81 16 114/73 95 Room Air 08/02/25 01:14 97.5 F L 84 16 113/73 93 Room Air 08/02/25 00:45 97.9 F 84 16 112/72 93 Room Air 08/02/25 00:15 Room Air 08/02/25 00:15 97.7 F 79 123/77 94 Room Air 08/02/25 00:05 97.3 F L 75 20 119/77 97 Room Air 08/01/25 23:55 97.3 F L 76 20 136/83 97 Room Air 08/01/25 23:45 95.7 F L 73 20 142/82 H 100 Oxymask 08/01/25 23:35 96.4 F L 78 20 156/91 H 100 Oxymask O2 Flow Rate 08/02/25 07:43 08/02/25 03:12 08/02/25 02:15 08/02/25 01:14 08/02/25 00:45 08/02/25 00:15 08/02/25 00:15 08/02/25 00:05 08/01/25 23:55 08/01/25 23:45 4 08/01/25 23:35 7 PG Care Time/CCT Total # of Minutes Spent Total Time Spent with Patient: Total time spent is greater than 50% in coordination of care (as documented) at patient's floor/unit and/or counseling patient: Coding Level of Care Code 41433 Post Operative Follow-Up Diagnoses Acute cholecystitis K81.0
[2025-08-02 10:59] VITALS: BP 108/66; PULSE 80; TEMP 98.1
[2025-08-02] MEDS: ACETAMINOPHEN 325 MG TAB PO SCH (12:13)
--- NOTE | 2025-08-02 22:05 | Electrocardiogram Report ---
Test Reason : Blood Pressure : */* mmHG Vent. Rate : 72 BPM Atrial Rate : 72 BPM P-R Int : 148 ms QRS Dur : 148 ms QT Int : 422 ms P-R-T Axes : 45 -20 133 degrees QTcB Int : 462 ms Normal sinus rhythm Left bundle branch block Abnormal ECG When compared with ECG of 25-Jul-2024 07:52, No significant change Confirmed by Jimbo Huitron ([id number]) on 08/02/2025 10:05:07 PM Referred By: REFERRED SELF Confirmed By: Jimbo Huitron
== END 2025-08-02 15:41 | disposition home or self-care (01) | DRG 419 ==
LOC: ED 15:56 → 3E 21:45 → OR 21:45 → 3E 23:34